=== PATIENT | male | born 1935 | race Hispanic/Latino ===

== ENCOUNTER 2017-04-07 06:08 | Inpatient (IN) | payer MEDICARE, OTHER ==
[2017-04-02 11:52] VITALS: BMI 25.0
--- NOTE | 2017-04-07 06:54 | CP.PCM.HP ---
History of Present Illness - History of Present Illness History of Present Illness: CC: scheduled L TKR HPI: This is a 81 y/o male with no chronic medical conditions who presents for a routine L TKR. Patient denies any CP, SOB. Denies any f/c/n/v/d. Denies cough , denies dysuria. Patient states that he has had b/l foot swelling for some months, but denies any exacerbating/attenuating factors. Denies any pain in feet /legs. ROS: 14 pt. ROS negative other than HPI MHx: No chronic medical conditions SHx: Colonoscopy in the past, L I Hernia surgery, R TKR Allergies: celecoxib Medications: As per med rec Family Hx: No relevant findings Social Hx: Lives wit family, no tobacco, occasional EtOH Surrogate: Daughter, info in chart Present on Admission - Present on Admission Any Indicators Present on Admission: No Past Patient History - Past Medical History & Family History Past Medical History?: Yes - Past Social History Smoking Status: Never Smoked - CARDIAC Hx Cardiac Disorders: No - PULMONARY Hx Respiratory Disorders: No - NEUROLOGICAL Hx Neurological Disorder: Yes Other/Comment: [place] - HEENT Hx HEENT Problems: Yes Hx Cataracts: Yes - RENAL Hx Chronic Kidney Disease: No - ENDOCRINE/METABOLIC Hx Endocrine Disorders: No - HEMATOLOGICAL/ONCOLOGICAL Hx Blood Disorders: No - INTEGUMENTARY Hx Dermatological Problems: No - MUSCULOSKELETAL/RHEUMATOLOGICAL Hx Musculoskeletal Disorders: Yes Hx Arthritis: Yes Hx Osteoarthritis: Yes - GASTROINTESTINAL Hx Gastrointestinal Disorders: Yes - GENITOURINARY/GYNECOLOGICAL Hx Genitourinary Disorders: No - PSYCHIATRIC Hx Psychophysiologic Disorder: No - SURGICAL HISTORY Hx Surgeries: Yes Hx Cataract Extraction: Yes Hx Herniorrhaphy: Yes (INGUINAL HERNIA) Hx Joint Replacement: Yes (TOTAL RIGHT KNEE REPLACEMENT) Hx Tonsillectomy: (O.U) Other/Comment: SEPTOPLASTY - ANESTHESIA Hx Anesthesia: Yes Hx Anesthesia Reactions: No Hx Malignant Hyperthermia: No Has any member of the family had a problem w/ anesthesia?: No Meds Allergies/Adverse Reactions: Allergies Allergy/AdvReac Type Severity Reaction Status Date / Time celecoxib [From Celebrex] Allergy ITCHING Verified 04/07/17 06:23 Physical Exam - Constitutional Appears: No Acute Distress - Head Exam Head Exam: ATRAUMATIC, NORMOCEPHALIC - Eye Exam Eye Exam: EOMI, PERRL - ENT Exam ENT Exam: Mucous Membranes Moist - Neck Exam Neck exam: Positive for: Full Rom - Respiratory Exam Respiratory Exam: Clear to Auscultation Bilateral, NORMAL BREATHING PATTERN - Cardiovascular Exam Cardiovascular Exam: REGULAR RHYTHM, +S1, +S2 - GI/Abdominal Exam GI & Abdominal Exam: Normal Bowel Sounds, Soft - Extremities Exam Extremities exam: Positive for: full ROM, pedal edema - Neurological Exam Neurological exam: Alert, CN II-XII Intact, Oriented x3 - Psychiatric Exam Psychiatric exam: Normal Affect, Normal Mood - Skin Skin Exam: Dry, Warm Assessment & Plan (1) Aftercare following left knee joint replacement surgery Assessment and Plan: 81 y/o with no chronic medical problems admitted for scheduled LKR. -routine post-op care -Pain mgmt -DVT PPx when cleared by orthopedics Status: Acute (2) DVT prophylaxis Status: Acute
[2017-04-07] MEDS ORDERED: ceFAZolin IV 1 gm in Dextrose 2 GM/100 ML BAG IVPB ONE (07:10)
[2017-04-07] MEDS ORDERED: Absorbable Gelatin Sponge Size 100 ONE (07:11)
[2017-04-07] MEDS ORDERED: Thrombin Topical 5,000 IU Spray Kit ONE (07:11)
[2017-04-07] MEDS ORDERED: SENSORCAINE 0.5% W/EPINEPHRINE 50ML MDV IJ ONE (07:16)
[2017-04-07] MEDS ORDERED: Propofol 10 mg/ml Inj (20 ML) ONE ×2 (07:18→10:04)
[2017-04-07] MEDS ORDERED: Rocuronium 10 mg/ml (5 ml) ONE ×2 (07:18→08:48)
[2017-04-07] MEDS ORDERED: Succinylcholine 200 mg/10 ml Inj IV ONE (07:18)
[2017-04-07] MEDS ORDERED: Etomidate 20 mg/10ml Inj IV ONE (07:18)
[2017-04-07] MEDS ORDERED: Lactated Ringer's 1,000 ML IV ONE (07:20)
[2017-04-07] MEDS ORDERED: Phenylephrine 10 mg/ml Inj ONE ×2 (07:25→08:59)
[2017-04-07] MEDS ORDERED: Sodium Chloride 0.9% 1,000 ML IV ONE (07:50)
[2017-04-07] MEDS ORDERED: Calcium Chloride 1000 mg/10 ml Syringe IV ONE (08:56)
[2017-04-07 09:46] LABS: FLUID TYPE SYNOVIAL FLUID
[2017-04-07] MEDS ORDERED: Bacitracin Ointment 30 GM TUBE ONE (09:49)
[2017-04-07] MEDS ORDERED: ePHEDrine 50 mg/ml Inj ONE (09:57)
--- NOTE | 2017-04-07 10:00 | PCM.SURG1 ---
Surgeon's Initial Post Op Note - Surgeon's Notes Surgeon: Seth Ship Washer: TOMI Sargent Type of Anesthesia: General Endo, Block Regional Anesthesia Administered By: DR Anne Marie Meng Pre-Operative Diagnosis: Tricompartmenal oseoarthritis (severe). tricompartmental synovitis Operative Findings: as above. posterior cap[sular contracture. lateral patella contracture Post-Operative Diagnosis: as above Operation Performed: TKR -L. posterior capsular release. lateral patella release. tricompartmental synovectomy. computer navigation Specimen/Specimens Removed: synovium/cartilage/bone Estimated Blood Loss: EBL {In ML}: 55 Blood Products Given: N/A, PRBC Drains Used: No Drains Date of Surgery/Procedure: 04/07/17 Time of Surgery/Procedure: 08:50 (time in room/anesthesia induction time- 7:50)
[2017-04-07] MEDS ORDERED: Desflurane Inhalation Anesthetic Liq (240 ml) ONE (10:02)
[2017-04-07] MEDS ORDERED: Neostigmine Methylsulfate 3mg/3ml Syringe IV ONE (10:17)
[2017-04-07] MEDS ORDERED: Neostigmine Methylsulfate 2 MG/2 ML ML IV ONE (10:17)
[2017-04-07] MEDS ORDERED: HYDROmorphone 0.5 mg/0.5 ml ISec IVP PRN (10:54)
[2017-04-07] MEDS ORDERED: Naloxone 0.4 mg/ml Inj (Adult) IVP PRN (10:54)
[2017-04-07] MEDS ORDERED: Oxycodone/Acetaminophen 5/325 mg Tab PO PRN (11:38)
--- NOTE | 2017-04-07 12:48 | RAD ---
PROCEDURE: Left Knee Radiographs. HISTORY: Pain. COMPARISON: None. FINDINGS: BONES: Patient seen to be status post left total knee replacement with distal femoral proximal tibial components in good apparent position. No interval definite fracture subluxation or dislocation. Postop soft tissue changes seen anteriorly greater than posteriorly with skin martir noted anteriorly. JOINTS: As above JOINT EFFUSION: As above OTHER FINDINGS: None. IMPRESSION: Status post left total knee replacement as discussed above.
[2017-04-07] MEDS: Sodium Chloride 0.9% 1,000 ML IV SCH (16:05)
[2017-04-07] MEDS: Artificial Tears Opht Soln OU PRN (16:15)
[2017-04-07] MEDS: ceFAZolin IV 2 gm in Dextrose 2 GM/50 ML BAG IVPB SCH ×2 (16:29→18:13)
--- NOTE | 2017-04-07 18:13 | OP ---
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 OPERATIVE FINDINGS: As above. OPERATION PERFORMED: 1. Left total knee replacement arthroplasty. 2. Posterior capsular release. 3. Lateral patellar retinacular release. 4. Anterior and posterior synovectomy. 5. Computer navigation. SURGEON: Stevan Ann MD MOLD CAPPER: Tammi Sandoval, certified registered nursing. SECOND ASSEMBLER SMALL PRODUCTS: Omari Guillory. SPECIMENS REMOVED: Synovium, cartilage. Stat Gram stain revealed no white cells per high-power field, no bacteria. ESTIMATED BLOOD LOSS: Approximately 55 mL. BLOOD PRODUCTS GIVEN: A 2 units of packed cells were given. DRAINS: None. TIME IN THE ROOM: 07:50. INCISION TIME: 08:50. OPERATIVE INDICATION: Afshin Long is a 81-year-old gentleman well known to my practice, who presents with severe pain and restricted range of motion of the right knee. The patient is status post successful complex revision right knee replacement. The patient now presents with pain and restricted range of motion of the left knee. The left knee is the involved knee and the left knee is operative on today. Pros, cons, risks and benefits of surgical approach were discussed, possibility of mechanical failure, infection, thromboembolic disease, secondary or tertiary surgery discussed. The patient can understand the discomfort. OPERATIVE PROCEDURE: After having obtained informed consent, after having identified the side, site, and procedure and a critical pause/time-out, after the satisfactory induction of the anesthetic, the patient identified as Afshin Long in the supine position with all bony prominences well padded. The left lower extremity was prepped and free draped in the usual fashion for lower extremity surgery. The tourniquet had been applied, but was not yet inflated. After exsanguinating the limb using a 6-inch Esmarch bandage, the tourniquet, which had been applied was inflated to 350 mmHg. A straight midline approach was made to the knee, 6 inches in extent. The skin incision was carried down through the skin and subcutaneous tissue. Medial arthrotomy was accomplished. The patella was everted. The knee was flexed. The tibia was dislocated anteriorly. Medial and lateral meniscectomies were accomplished. Anterior and posterior cruciate ligaments were excised. Dissection was carried around posterior medially. There was found to be a marked synovitis. Anterior and posterior synovectomy was accomplished both to improve visualization and to ablate the inflammatory tissue. This having been accomplished, the initial osteotomy was accomplished on the tibial side. Computer navigation commences at this point in time. The KneeAlign was placed on the anterior aspect of the femur. The sensor was placed as was the accelerometer. The offset was set to the posterior insertion of the anterior cruciate ligament. The offset was set to 8.5. This was set on the device. The medial malleolus was registered, lateral malleolus was registered, varus-valgus was set to 0 degrees, posterior slope to 3.5. The initial osteotomy was accomplished on the tibial side. The tibia was prepared with a #5 tibial component, guidance to rotation on the lateral aspect of the tibial condyle, mid malleolar axis, medial third of the tibial tuberosity. The tibia had been cut at 10 mm below the more prominent side. This having been accomplished, the proximal tibia was prepared and punched. Attention was turned to the femur. Notch osteophytes, border osteophytes were debrided. The navigation pin was placed just superior to the intercondylar notch. This having been accomplished, the distal cutting guide was placed, it was pinned. The accelerometer was placed as was the sensor. The hip center was found, the varus-valgus was set to 0 degrees and flexion to approximately 0.5 degrees. This having been accomplished, the 4-in-1 block was placed across the epicondylar axis. Anterior and posterior osteotomies were accomplished, chamfer cuts were accomplished as well. The trial femoral component was placed and the lugs were reamed. Attention at this point in time was turned to the posterior capsule. The posterior capsule was released. An extensive synovectomy, anterior and posterior was accomplished and lateral patellar retinacular release accomplished as well. Attention was turned to the patella. Freehand patella osteotomy was accomplished for #3 patellar component, #3 is reamed. Trialing was accomplished with a 17 mm polyethylene. Flexion and extension balance was excellent, patellar balance was excellent. The tibia, femur and patella were prepared. The #5 cemented femoral component was applied, #4 cemented tibial tray, 17 mm polyethylene, 3 mm, #3 of patella. This having been accomplished, closure was in layers. Flexion and extension gap was excellent, patellar balance was excellent. Lateral patellar retinacular release having been accomplished. Closures was in layers, #1 Vicryl followed by 0-Vicryl, 2-0 Vicryl and martir for skin. The tourniquet had been deflated and this having been accomplished, Josh Carrington compression dressing and knee immobilizers applied. No Hemovac was employed. Postoperative x-rays show acceptable position of the construct. Stevan Ann MD
[2017-04-07 20:11] LABS: RBC URINE 14 /hpf (0-3); URINE BILIRUBIN NEGATIVE (NEGATIVE); URINE BLOOD LARGE (NEGATIVE); URINE COLOR YELLOW (YELLOW); URINE GLUCOSE (UA) NEG (Normal); URINE KETONE NEGATIVE (NEGATIVE); URINE LEUKOCYTE ESTERASE NEG Leu/uL (Negative); URINE PROTEIN NEGATIVE (NEGATIVE); URINE UROBILINOGEN 0.2-1.0 mg/dL (0.2-1.0); WBC URINE < 1 /hpf (0-5)
[2017-04-08] MEDS: ceFAZolin IV 2 gm in Dextrose 2 GM/50 ML BAG IVPB SCH (00:16)
[2017-04-08] MEDS: Sodium Chloride 0.9% 1,000 ML IV SCH (00:30)
[2017-04-08 06:22] LABS: BLOOD UREA NITROGEN 24 mg/dl (9-20); CALCIUM 7.9 mg/dL (8.4-10.2); CARBON DIOXIDE 27 mmol/L (22-30); CHLORIDE 103 mmol/L (98-107); GFR AFRICAN-AMERICAN > 60; GLUCOSE,RANDOM 143 mg/dL (75-110); POTASSIUM 3.9 MMOL/L (3.6-5.0); SODIUM 138 mmol/l (132-148)
[2017-04-08 06:23] LABS: HEMATOCRIT 31.3 % (35.0-51.0); MEAN CORPUSCULAR HEMOGLOBIN 27.9 pg (27.0-31.0); MEAN CORPUSCULAR HGB CONC 32.9 g/dL (33.0-37.0); RED CELL DISTRIBUTION WIDTH 17.1 % (11.5-14.5); WHITE BLOOD COUNT 10.8 K/uL (4.8-10.8)
[2017-04-08] MEDS ORDERED: Sodium Chloride 0.9% 1,000 ML IV SCH (12:00)
--- NOTE | 2017-04-08 16:31 | CP.PCM.PN ---
Subjective - Date & Time of Evaluation Date of Evaluation: 04/08/17 Time of Evaluation: 12:30 - Subjective Subjective: Pt seen and examined He was sitted on a chair and was with the Physical therapy team No fevr Pain controlled Denies CP no SOB no abd pain Had episode of urinary retention last night, Moody cath inserted Objective - Vital Signs/Intake and Output Vital Signs (last 24 hours): Temp Pulse Resp BP Pulse Ox 98.6 F 91 H 20 128/77 97 04/08/17 16:15 04/08/17 16:15 04/08/17 16:15 04/08/17 16:15 04/08/17 16:15 Intake and Output: 04/08/17 04/08/17 06:59 18:59 Output Total 500 Balance -500 - Medications Medications: Current Medications Artificial Tears (Artificial Tears) 2 drop OU Q6 PRN PRN Reason: Dry eyes Last Admin: 04/07/17 16:15 Dose: 2 drop Aspirin (Ecotrin) 81 mg PO BID [facility] Last Admin: 04/08/17 09:23 Dose: 81 mg Docusate Sodium (Colace) 100 mg PO BID [facility] Last Admin: 04/08/17 09:23 Dose: 100 mg Ferrous Sulfate (Feosol) 325 mg PO BID [facility] Last Admin: 04/08/17 09:26 Dose: 325 mg Sodium Chloride (Sodium Chloride 0.9%) 1,000 mls @ 100 mls/hr IV .Q10H [facility] Stop: 04/08/17 21:59 Last Admin: 04/08/17 12:17 Dose: 100 mls/hr Morphine Sulfate (Morphine) 2 mg IVP Q4 PRN PRN Reason: Pain, severe (8-10) Last Admin: 04/08/17 11:10 Dose: 2 mg Naloxone HCl (Narcan) 0.1 mg IVP Q2M PRN PRN Reason: Agitation Oxycodone/Acetaminophen (Percocet 5/325 Mg Tab) 1 tab PO Q4 PRN PRN Reason: Pain, moderate (4-7) Stop: 04/10/17 11:39 Tamsulosin HCl (Flomax) 0.4 mg PO HS [facility] Last Admin: 04/07/17 21:31 Dose: 0.4 mg - Labs Labs: 04/08/17 05:55 04/08/17 05:55 - Constitutional Appears: No Acute Distress - Head Exam Head Exam: NORMAL INSPECTION, NORMOCEPHALIC - Eye Exam Pupil Exam: NORMAL ACCOMODATION Additional comments: conjunctival erythema - ENT Exam ENT Exam: Mucous Membranes Moist, Normal External Ear Exam - Neck Exam Neck Exam: Full ROM. absent: Meningismus - Respiratory Exam Respiratory Exam: NORMAL BREATHING PATTERN. absent: Rales, Wheezes, Respiratory Distress - Cardiovascular Exam Cardiovascular Exam: REGULAR RHYTHM, +S1, +S2 - GI/Abdominal Exam GI & Abdominal Exam: Soft, Normal Bowel Sounds. absent: Tenderness - Extremities Exam Extremities Exam: Normal Capillary Refill, Pedal Edema. absent: Calf Tenderness Additional comments: LEFT KNEE WITH DRESSING - Back Exam Back Exam: Full ROM. absent: CVA tenderness (L), CVA tenderness (R) - Neurological Exam Neurological Exam: Alert, Awake, CN II-XII Intact, Oriented x3 Neuro motor strength exam: Left Upper Extremity: 5, Right Upper Extremity: 5, Left Lower Extremity: 5, Right Lower Extremity: 5 - Psychiatric Exam Psychiatric exam: Normal Affect, Normal Mood - Skin Skin Exam: Dry, Normal Color, Warm Assessment and Plan (1) Aftercare following left knee joint replacement surgery Status: Acute (2) Postoperative urinary retention Status: Acute (3) Prostatic enlargement Status: Chronic (4) Dry eyes, bilateral Status: Chronic (5) Anemia Status: Chronic (6) DVT prophylaxis Status: Acute - Assessment and Plan (Free Text) Assessment: 81 y/o gent with hx of Primary OA, Prostate Enlargement , Anemia, admitted for scheduled Left Knee TKR . Pt is post op Day 1 , doing weel, pain controlled. (1) Primary OA of the left knee s/p left knee joint replacement surgery Status: Acute Ortho: Dr Ann Pain mgt PT/OT consulted SCD DVT Proph Incentive Spirometry Pt Received Ancef x 3 doses (2) Postoperative urinary retention likely due to Anethesi, opiates and prostate enalrgement Status: Acute Moody catheter placed Bladder training started on Flomax Urology - Dr Lara consulted (3) Prostatic enlargement Status: Chronic cont Flomax (4) Dry eyes, bilateral Status: Chronic cont Artificial eye drops (5) Anemia Status: Chronic Pt was anemic prior to surgery- baseline Hgb 10 transfused PRBC intraop start Ferrous sulfate (6) DVT prophylaxis Status: Acute ASA 81 mg bid [facility]
[2017-04-09] MEDS ORDERED: Sodium Chloride 0.9% 1,000 ML IV SCH (02:30)
[2017-04-09 08:18] VITALS: BP 116/70; PULSE 79; RESP 18; TEMP 99.1; O2SAT 96
--- NOTE | 2017-04-09 10:33 | CP.PCM.PN ---
Subjective - Date & Time of Evaluation Date of Evaluation: 04/09/17 Time of Evaluation: 10:33 - Subjective Subjective: Patient states pain in knee is well controlled if he is not moving. Denies CP/ SOB/dizziness. Objective - Vital Signs/Intake and Output Vital Signs (last 24 hours): Temp Pulse Resp BP Pulse Ox 99.1 F 79 18 116/70 96 04/09/17 08:17 04/09/17 08:17 04/09/17 08:17 04/09/17 08:17 04/09/17 08:17 Intake and Output: 04/09/17 04/09/17 06:59 18:59 Intake Total 1440 Output Total 400 Balance 1040 - Medications Medications: Current Medications Artificial Tears (Artificial Tears) 2 drop OU Q6 PRN PRN Reason: Dry eyes Last Admin: 04/07/17 16:15 Dose: 2 drop Aspirin (Ecotrin) 81 mg PO BID [facility] Last Admin: 04/09/17 09:10 Dose: 81 mg Docusate Sodium (Colace) 100 mg PO BID [facility] Last Admin: 04/09/17 09:09 Dose: 100 mg Ferrous Sulfate (Feosol) 325 mg PO BID [facility] Last Admin: 04/09/17 09:10 Dose: 325 mg Sodium Chloride (Sodium Chloride 0.9%) 1,000 mls @ 100 mls/hr IV .Q10H [facility] Stop: 04/09/17 12:29 Last Admin: 04/09/17 02:30 Dose: 100 mls/hr Morphine Sulfate (Morphine) 2 mg IVP Q4 PRN PRN Reason: Pain, severe (8-10) Last Admin: 04/09/17 06:35 Dose: 2 mg Naloxone HCl (Narcan) 0.1 mg IVP Q2M PRN PRN Reason: Agitation Oxycodone/Acetaminophen (Percocet 5/325 Mg Tab) 1 tab PO Q4 PRN PRN Reason: Pain, moderate (4-7) Stop: 04/10/17 11:39 Tamsulosin HCl (Flomax) 0.4 mg PO HS [facility] Last Admin: 04/08/17 22:03 Dose: 0.4 mg - Labs Labs: 04/08/17 05:55 04/08/17 05:55 - Extremities Exam Additional comments: Left knee: dressing changed, incision intact, small amt sang drainage, mild ecchymosis, noted foot swellingn (present on admission) calves soft NT ne ghmoans, +DP pulses, sensation intact, +ROM ankle/toes, encouraged Assessment and Plan (1) Primary osteoarthritis of left knee Assessment & Plan: POD#2 s/p left TKR -ortho stablel PT/OT/VTE proph aspirin per Dr. Ann bladder training, d/c maier rohith d/c plannng to rehba cbc today d/w Dr. Ann, agrees with above Status: Acute
[2017-04-09 12:03] LABS: MEAN CELL VOLUME 85.1 fl (80.0-94.0); MEAN CORPUSCULAR HEMOGLOBIN 27.8 pg (27.0-31.0); MEAN CORPUSCULAR HGB CONC 32.6 g/dL (33.0-37.0); RED CELL DISTRIBUTION WIDTH 17.1 % (11.5-14.5)
[2017-04-09] MEDS ORDERED: Chlorhexidine Gluconate 1 APPL/PKT TP ONE (12:03)
[2017-04-09] MEDS: Artificial Tears Opht Soln OU PRN (12:08)
--- NOTE | 2017-04-09 12:13 | CP.PCM.PN ---
Subjective - Date & Time of Evaluation Date of Evaluation: 04/09/17 Time of Evaluation: 12:09 - Subjective Subjective: urology called to se pt because of post op acute urinary retention. Pt has a history of bph but qas according to him voiding well until after knee surgey. He was started on flomax on 04/07 Urine in maier is clear. To give the flomax a chance to start working I suggested to continue maier till am then d/ c maier and give a vioding terial Objective - Vital Signs/Intake and Output Vital Signs (last 24 hours): Temp Pulse Resp BP Pulse Ox 99.1 F 79 18 116/70 96 04/09/17 08:17 04/09/17 08:17 04/09/17 08:17 04/09/17 08:17 04/09/17 08:17 Intake and Output: 04/09/17 04/09/17 06:59 18:59 Intake Total 1440 Output Total 400 Balance 1040 - Medications Medications: Current Medications Artificial Tears (Artificial Tears) 2 drop OU Q6 PRN PRN Reason: Dry eyes Last Admin: 04/07/17 16:15 Dose: 2 drop Aspirin (Ecotrin) 81 mg PO BID [facility] Last Admin: 04/09/17 09:10 Dose: 81 mg Docusate Sodium (Colace) 100 mg PO BID [facility] Last Admin: 04/09/17 09:09 Dose: 100 mg Ferrous Sulfate (Feosol) 325 mg PO BID [facility] Last Admin: 04/09/17 09:10 Dose: 325 mg Sodium Chloride (Sodium Chloride 0.9%) 1,000 mls @ 100 mls/hr IV .Q10H [facility] Stop: 04/09/17 12:29 Last Admin: 04/09/17 02:30 Dose: 100 mls/hr Morphine Sulfate (Morphine) 2 mg IVP Q4 PRN PRN Reason: Pain, severe (8-10) Last Admin: 04/09/17 06:35 Dose: 2 mg Naloxone HCl (Narcan) 0.1 mg IVP Q2M PRN PRN Reason: Agitation Oxycodone/Acetaminophen (Percocet 5/325 Mg Tab) 1 tab PO Q4 PRN PRN Reason: Pain, moderate (4-7) Stop: 04/10/17 11:39 Tamsulosin HCl (Flomax) 0.4 mg PO HS [facility] Last Admin: 04/08/17 22:03 Dose: 0.4 mg Tramadol HCl (Ultram) 50 mg PO Q6 PRN PRN Reason: Pain, moderate (4-7) Tramadol HCl (Ultram) 100 mg PO Q6 PRN PRN Reason: Pain, severe (8-10) - Labs Labs: 04/09/17 11:55 04/08/17 05:55
--- NOTE | 2017-04-09 13:41 | CP.PCM.DIS ---
Provider - Provider Date of Admission: 04/07/17 11:32 Attending physician: Ludin Browne MD Primary care physician: Stevan Ann III, MD Consults: ortho consult PT consult urology consult Time Spent in preparation of Discharge (in minutes): 20 Hospital Course - Lab Results Lab Results: Micro Results 04/07/17 10:17 Knee - Left Gram Stain - Final 04/07/17 10:17 Knee - Left Wound Culture - Preliminary No growth. 04/07/17 10:17 Knee - Left Gram Stain - Final 04/07/17 10:17 Knee - Left Wound Culture - Preliminary No growth. 04/07/17 10:17 Knee - Left Gram Stain - Final 04/07/17 10:17 Knee - Left Wound Culture - Preliminary No growth. 04/07/17 10:17 Knee - Left Gram Stain - Final 04/07/17 10:17 Knee - Left Wound Culture - Preliminary No growth. 04/07/17 10:17 Knee - Left Gram Stain - Final 04/07/17 10:17 Knee - Left Wound Culture - Preliminary No growth. 04/07/17 10:17 Knee - Left Gram Stain - Final 04/07/17 10:17 Knee - Left Wound Culture - Preliminary No growth. 04/07/17 09:43 Synovial Fluid Gram Stain - Final 04/07/17 09:43 Synovial Fluid Body Fluid Culture - Preliminary NO GROWTH AFTER 2 DAYS 04/07/17 10:17 Knee - Left Gram Stain - Final 04/07/17 10:17 Knee - Left Wound Culture - Preliminary No growth. 04/07/17 10:17 Knee - Left Gram Stain - Final 04/07/17 10:17 Knee - Left Wound Culture - Preliminary No growth. 04/07/17 09:43 Other: Please Indicate Anaerobic Culture - Final NO ANAEROBES ISOLATED. 04/07/17 09:43 Other: Please Indicate Mycobacterial Culture - Preliminary Most Recent Lab Values WBC 11.0 K/uL (4.8-10.8) H 04/09/17 11:55 RBC 3.40 Mil/uL (4.40-5.90) L 04/09/17 11:55 Hgb 9.4 g/dL (12.0-18.0) L 04/09/17 11:55 Hct 29.0 % (35.0-51.0) L 04/09/17 11:55 MCV 85.1 fl (80.0-94.0) 04/09/17 11:55 MCH 27.8 pg (27.0-31.0) 04/09/17 11:55 MCHC 32.6 g/dL (33.0-37.0) L 04/09/17 11:55 RDW 17.1 % (11.5-14.5) H 04/09/17 11:55 Plt Count 183 K/uL (130-400) 04/09/17 11:55 Sodium 138 mmol/l (132-148) 04/08/17 05:55 Potassium 3.9 MMOL/L (3.6-5.0) 04/08/17 05:55 Chloride 103 mmol/L (98-107) 04/08/17 05:55 Carbon Dioxide 27 mmol/L (22-30) 04/08/17 05:55 Anion Gap 12 (10-20) 04/08/17 05:55 BUN 24 mg/dl (9-20) H 04/08/17 05:55 Creatinine 0.8 mg/dl (0.8-1.5) 04/08/17 05:55 Est GFR ( Amer) > 60 04/08/17 05:55 Est GFR (Non-Af Amer) > 60 04/08/17 05:55 Random Glucose 143 mg/dL (75-110) H 04/08/17 05:55 Calcium 7.9 mg/dL (8.4-10.2) L 04/08/17 05:55 Urine Color Yellow (YELLOW) 04/07/17 19:44 Urine Clarity Clear (Clear) 04/07/17 19:44 Urine pH 6.0 (5.0-8.0) 04/07/17 19:44 Ur Specific [place] 1.011 (1.003-1.030) 04/07/17 19:44 Urine Protein Negative mg/dL (NEGATIVE) 04/07/17 19:44 Urine Glucose (UA) Neg mg/dL (Normal) 04/07/17 19:44 Urine Ketones Negative mg/dL (NEGATIVE) 04/07/17 19:44 Urine Blood Large (NEGATIVE) 04/07/17 19:44 Urine Nitrate Negative (NEGATIVE) 04/07/17 19:44 Urine Bilirubin Negative (NEGATIVE) 04/07/17 19:44 Urine Urobilinogen 0.2-1.0 mg/dL (0.2-1.0) 04/07/17 19:44 Ur Leukocyte Esterase Neg Eulalio/uL (Negative) 04/07/17 19:44 Urine RBC (Auto) 14 /hpf (0-3) H 04/07/17 19:44 Urine Microscopic WBC < 1 /hpf (0-5) 04/07/17 19:44 Fluid Type Synovial fluid 04/07/17 09:43 Synovial WBC 63.0 /mm3 (0.0-150.0) 04/07/17 09:43 Synovial RBC 1742.0 /mm3 (0.0-0.0) H 04/07/17 09:43 Synovial Neutrophils 9.0 % (0-0) H 04/07/17 09:43 Synovial Lymphocytes 14.0 % (0-0) H 04/07/17 09:43 Synov Monos/Macrophage 2 % (0-0) H 04/07/17 09:43 Synovial Fluid Comment Sl bloody 04/07/17 09:43 Blood Type O POSITIVE 04/07/17 06:35 Blood Type Confirm O POSITIVE 04/07/17 07:55 Antibody Screen Negative 04/07/17 06:35 Crossmatch See Detail 04/07/17 06:35 BBK History Checked No verified bt 04/07/17 06:35 - Hospital Course Hospital Course: 81 y/o gent with hx of Primary OA, Prostate Enlargement , Anemia, admitted for scheduled Left Knee TKR .Post op patient developed acute urinary retention and Ennis was inserted and started on Flomax PO. urology consulted and recommended keeping Ennis in for another 24 hours. Post patient doing well, pain is controlled. PT consult appreciated and recommended [facility]. Will discharge patient to [facility] close to home. advise to follow up with Dr. Ann in 1 week 1. Primary OA of the left knee s/p left knee joint replacement surgery Acute Orth consulted Dr Ann continue pain management with Ultram since patient is allergic to oxycodone PT/OT consult appreciated . will d/c to [facility] for continuation of PT continue CPM machine use as per ortho recommendations ASa 81 mg po BHID for DVt propohylaxis incentive spirometry use Received Ancef x 3 doses prophylactically 2. Postoperative urinary retention likely due to Anethesai, opiates and prostate enlargement Acute Ennis catheter placed started on Flomax Urology - Dr Lara consulted. recommended to keep Ennis in for another 24 hours and continue Flomax promote ambulation 3.Prostatic enlargement Chronic cont Flomax 4. Dry eyes, bilateral Chronic cont Artificial eye drops 5. Anemia Chronic Pt was anemic prior to surgery- baseline Hgb 10 transfused PRBC intraop started Ferrous sulfate 6. DVT prophylaxis Acute ASA 81 mg bid SCD Discharge Exam - Head Exam Head Exam: NORMAL INSPECTION, NORMOCEPHALIC - Eye Exam Eye Exam: EOMI, Normal appearance, PERRL Pupil Exam: NORMAL ACCOMODATION - ENT Exam ENT Exam: Mucous Membranes Moist, Normal Exam - Neck Exam Neck exam: Full Rom, Normal Inspection - Respiratory Exam Respiratory Exam: Clear to PA & Lateral, NORMAL BREATHING PATTERN. absent: Rales, Rhonchi, Wheezes, Respiratory Distress - Cardiovascular Exam Cardiovascular Exam: REGULAR RHYTHM, RRR, +S1, +S2. absent: JVD - GI/Abdominal Exam GI & Abdominal Exam: Normal Bowel Sounds, Soft. absent: Distended, Guarding, Rebound, Tenderness - Rectal Exam Rectal Exam: Deferred - Extremities Exam Extremities exam: normal inspection, pedal pulses present Additional comments: Left knee with raiza bandage and immobilizer in place - Back Exam Back exam: NORMAL INSPECTION - Neurological Exam Neurological exam: Alert, CN II-XII Intact, Oriented x3, Reflexes Normal - Psychiatric Exam Psychiatric exam: Normal Affect, Normal Mood - Skin Skin Exam: Dry, Pallor, Warm Discharge Plan - Discharge Medications Prescriptions: traMADol [Ultram] 50 mg PO TID PRN #30 tab PRN Reason: Pain, Severe (8-10) - Follow Up Plan Condition: GOOD Disposition: TRANSF TO SNF Patient education suggested?: Yes Instructions: Knee Replacement (DC), Knee Replacement (GEN) Additional Instructions: ENNIS CATHETER ON, REMOVED 04/10 AT 8AM. Referrals: Stevan Ann III, MD [Primary Care Provider] -
== END 2017-04-09 16:25 | DRG 470 ==
LOC: H.OPSURG 06:08 → H.MEDSURG1 11:32
PROVIDERS: ADMIT Internal Medicine; ATTEND Internal Medicine
PROC: 0SRD0J9 Replacement of Left Knee Joint with Synthetic Substitute, Cemented, Open Approach (ICD-10-PCS; principal; 2017-04-07 07:45)
PROC: 0SBD0ZZ Excision of Left Knee Joint, Open Approach (ICD-10-PCS; 2017-04-07 07:45)
PROC: 8E0YXBZ Computer Assisted Procedure of Lower Extremity (ICD-10-PCS; 2017-04-07 07:45)
DX: M17.12 Unilateral primary osteoarthritis, left knee (principal); D64.9 Anemia, unspecified; H04.123 Dry eye syndrome of bilateral lacrimal glands; M65.9 Synovitis and tenosynovitis, unspecified; Z96.651 Presence of right artificial knee joint; Z88.5 Allergy status to narcotic agent; Z88.6 Allergy status to analgesic agent; R33.8 Other retention of urine; N99.89 Other postprocedural complications and disorders of genitourinary system; Y83.8 Other surgical procedures as the cause of abnormal reaction of the patient, or of later complication, without mention of misadventure at the time of the procedure; N40.1 Benign prostatic hyperplasia with lower urinary tract symptoms; R33.0 Drug induced retention of urine; T41.205A Adverse effect of unspecified general anesthetics, initial encounter; T40.605A Adverse effect of unspecified narcotics, initial encounter

== ENCOUNTER 2017-05-29 06:29 | Inpatient (IN) | payer MEDICARE ==
[2017-05-23 14:57] VITALS: BMI 20.3
[2017-05-29 08:14] LABS: HEMOGLOBIN 11.4 g/dL (12.0-18.0); MEAN CELL VOLUME 88.7 fl (80.0-94.0); MEAN CORPUSCULAR HEMOGLOBIN 28.7 pg (27.0-31.0); MEAN CORPUSCULAR HGB CONC 32.3 g/dL (33.0-37.0); RBC 3.96 Mil/uL (4.40-5.90); RED CELL DISTRIBUTION WIDTH 17.3 % (11.5-14.5); WHITE BLOOD COUNT 8.7 K/uL (4.8-10.8)
--- NOTE | 2017-05-29 10:23 | CP.PCM.HP ---
History of Present Illness - History of Present Illness History of Present Illness: 82 yo male with history of Arthritis, BPH and DVT admitted for revision of left TKR. Patient had left TKR on 04/07/2017 after failing conservative management. He was discharged to rehab center and did well. Developed bronchitis in April after he was discharged from the rehab center and [facility] [place] Hospitalization was complicated with DVT of the left leg and a fall. He was unable to put pressure on his left side since then. Follow up with orthopedist advised revision of the left TKR. Present on Admission - Present on Admission Any Indicators Present on Admission: Yes History of DVT/PE: Yes History of Uncontrolled Diabetes: No Urinary Catheter: No Decubitus Ulcer Present: No Review of Systems - Review of Systems All systems: reviewed and no additional remarkable complaints except (aside from those mentioned above, 12 point system review were negative by me) Past Patient History - Tetanus Immunizations Tetanus Immunization: Unknown - Past Medical History & Family History Past Medical History?: Yes - Past Social History Smoking Status: Never Smoked Alcohol: None Drugs: Denies Home Situation {Lives}: With Family - CARDIAC Hx Cardiac Disorders: No - PULMONARY Hx Respiratory Disorders: No - NEUROLOGICAL Hx Neurological Disorder: Yes Other/Comment: [place] - HEENT Hx HEENT Problems: Yes Hx Cataracts: Yes - RENAL Hx Chronic Kidney Disease: No - ENDOCRINE/METABOLIC Hx Endocrine Disorders: No - HEMATOLOGICAL/ONCOLOGICAL Hx Blood Disorders: No - INTEGUMENTARY Hx Dermatological Problems: No - MUSCULOSKELETAL/RHEUMATOLOGICAL Hx Musculoskeletal Disorders: Yes Hx Arthritis: Yes Hx Osteoarthritis: Yes - GASTROINTESTINAL Hx Gastrointestinal Disorders: Yes - GENITOURINARY/GYNECOLOGICAL Hx Genitourinary Disorders: No - PSYCHIATRIC Hx Psychophysiologic Disorder: No - SURGICAL HISTORY Hx Surgeries: Yes Hx Cataract Extraction: Yes Hx Herniorrhaphy: Yes (INGUINAL HERNIA) Hx Joint Replacement: Yes (TKR of both knees) Hx Tonsillectomy: (O.U) Other/Comment: SEPTOPLASTY - ANESTHESIA Hx Anesthesia: Yes Hx Anesthesia Reactions: No Hx Malignant Hyperthermia: No Has any member of the family had a problem w/ anesthesia?: No Meds Allergies/Adverse Reactions: Allergies Allergy/AdvReac Type Severity Reaction Status Date / Time acetaminophen [From Percocet] Allergy ITCHING Verified 04/09/17 06:41 celecoxib [From Celebrex] Allergy ITCHING Verified 04/07/17 06:23 oxycodone [From Percocet] Allergy ITCHING Verified 04/09/17 06:41 Physical Exam - Constitutional Appears: No Acute Distress - Head Exam Head Exam: ATRAUMATIC - Eye Exam Eye Exam: absent: Scleral icterus - ENT Exam ENT Exam: Mucous Membranes Moist - Neck Exam Neck exam: Negative for: Meningismus - Respiratory Exam Respiratory Exam: absent: Rhonchi, Wheezes, Respiratory Distress - Cardiovascular Exam Cardiovascular Exam: REGULAR RHYTHM, +S1, +S2 - GI/Abdominal Exam GI & Abdominal Exam: Soft. absent: Tenderness - Rectal Exam Rectal Exam: Deferred - Extremities Exam Extremities exam: Negative for: full ROM (limited ROM of left knee) - Neurological Exam Neurological exam: Alert, Oriented x3 - Psychiatric Exam Psychiatric exam: Normal Affect - Skin Skin Exam: Dry, Intact Results - Vital Signs Recent Vital Signs: Last Vital Signs Temp 98.8 F 05/29/17 08:27 Pulse 85 05/29/17 08:31 Resp 20 05/29/17 08:27 BP 97/54 L 05/29/17 08:27 Pulse Ox 98 05/29/17 08:27 - Labs Result Diagrams: 05/29/17 07:40 Labs: Laboratory Results - last 24 hr 05/29/17 05/29/17 07:40 07:40 WBC 8.7 RBC 3.96 L Hgb 11.4 L D Hct 35.2 MCV 88.7 D MCH 28.7 MCHC 32.3 L RDW 17.3 H Plt Count 191 BBK History Checked Patient has bt Assessment & Plan - Assessment and Plan (Free Text) Assessment: 82 yo male with history of Arthritis, BPH and DVT admitted for revision of left TKR. Patient had left TKR on 04/07/2017 after failing conservative management. He was discharged to rehab center and did well. Developed bronchitis in April after he was discharged from the rehab center and was [facility] [place] Hospitalization was complicated with DVT of the left leg and a fall. He was unable to put pressure on his left side since then. Follow up with orthopedist advised revision of the left TKR. 1. Dislocated Left TKR for revision hold Eliquis 2. DVT Eliquis put on hold 3. BPH resume Tamsulosin after surgery
[2017-05-29] MEDS ORDERED: Bupivacaine 0.5% Inj(30mL) ONE (13:18)
[2017-05-29] MEDS ORDERED: Bacitracin Ointment 30 GM TUBE ONE ×2 (13:19→16:47)
[2017-05-29] MEDS ORDERED: Thrombin Topical 5,000 Int Units Spray Kit ONE (13:19)
[2017-05-29] MEDS ORDERED: Absorbable Gelatin Sponge Size 100 ONE (13:19)
[2017-05-29] MEDS ORDERED: Propofol 10 mg/ml Inj (20 ML) ONE ×2 (13:59→17:19)
[2017-05-29] MEDS ORDERED: Midazolam 2 MG/2 ML VIAL ONE (13:59)
[2017-05-29] MEDS ORDERED: Rocuronium 10 mg/ml (5 ml) ONE ×2 (13:59→15:45)
[2017-05-29] MEDS ORDERED: ePHEDrine 50 mg/ml Inj ONE (14:54)
[2017-05-29] MEDS ORDERED: Dexamethasone 4 mg/1 ml ONE (15:09)
[2017-05-29 16:35] LABS: FLUID TYPE SYNOVIAL FLUID
[2017-05-29] MEDS ORDERED: Lactated Ringer's 1,000 ML IV ONE (16:40)
[2017-05-29 16:42] LABS: SF GROSS APPEARANCE CLOUDY (CLEAR)
[2017-05-29 16:44] LABS: SYNOVIAL FLUID COMMENT SL BLOODY
[2017-05-29] MEDS ORDERED: HYDROmorphone 0.5 mg/0.5 ml ISec IVP PRN (17:17)
[2017-05-29 17:25] LABS: SYNOVIAL FLUID MONO/MACROPHAGE 10 % (0-0)
--- NOTE | 2017-05-29 17:29 | PCM.ANESB3 ---
Femoral Nerve Block - Femoral Nerve Block Date of Procedure: 05/29/17 Anesthesiologist: keshawn Pre-Procedure Diagnosis: quad repair Post-Procedure Diagnosis: same Procedure Performed: Femoral Nerve Block Left - Procedure Femoral Nerve Block: The procedure was explained to the patient that it is for the post-operative pain management. Consent was obtained after a thorough discussion with the patient regarding the benefits and possible complications of local anesthetic block of the femoral nerve at the inguinal crease area. The patient was brought to the operating room and standard monitors were applied. Time-out was held with the circulating nurse to confirm the correct surgery and the appropriate block. After applying oxygen , patient was placed in supine position with fully extended lower extremities and the ____left____ groin exposed. The femoral artery was then carefully palpated. The ultrasound transducer was then applied to this area in the transverse plane and the femoral nerve was visualized lateral to the femoral artery and underneath the fascia iliaca. After thorough identification, the inguinal crease area was prepped with Betadine solution three times and 1 % Lidocaine was injected subcutaneously for topical anesthesia. At this point, a #22 gauge Stimuplex 2-inch needle was inserted immediately lateral to the femoral artery pulse at the inguinal crease and advanced perpendicularly. The needle was inserted to the ultrasound transducer in-plane towards the femoral nerve in a [id number] direction. Needle advancement was performed carefully under direct ultrasound visualization. After negative aspiration, 30 cc of __.75___% bupivicaine was. Under ultrasound guidance the local anesthetics were observed spreading below fascia iliaca and around the femoral nerve. The needle was removed intact and sterile dressing was applied. The patient tolerated the femoral nerve block well with stable vital signs and was prepared for subsequent surgery.
[2017-05-29] MEDS ORDERED: Artificial Tears Opht Soln OU PRN (18:18)
--- NOTE | 2017-05-29 18:42 | PCM.SURG1 ---
Surgeon's Initial Post Op Note - Surgeon's Notes Surgeon: Seth [employer] Seaming Machine Operator: TOMI Sargent Type of Anesthesia: General Endo, Block Regional Anesthesia Administered By: DR Mcmullen Pre-Operative Diagnosis: Quadriceps tendon Rupture. s/p- L TKR. Operative Findings: as above Post-Operative Diagnosis: as above Operation Performed: primary repair L Quad tendon. excision skin/subcutaneous tissue /muscle. L Knee arthrotomy/ partial synovectomy. re[air medial lateral patella retinaculum. applx knee immobilizer Specimen/Specimens Removed: scar/tendon/synovium Estimated Blood Loss: EBL {In ML}: 25 Blood Products Given: N/A Drains Used: No Drains Post-Op Condition: Good Date of Surgery/Procedure: 05/29/17 Time of Surgery/Procedure: 15:50 (time in /anaetsheisa induciton time 1430)
[2017-05-29] MEDS: Lactated Ringer's 1,000 ML IV SCH (20:30)
[2017-05-29] MEDS: ceFAZolin 1 GM in Sodium Chloride 0.9% 100 ML IVPB SCH (22:05)
[2017-05-30] MEDS: ceFAZolin 1 GM in Sodium Chloride 0.9% 100 ML IVPB SCH (06:00)
[2017-05-30 06:32] LABS: HEMOGLOBIN 9.8 g/dL (12.0-18.0); LYMPH # 1.1 K/uL (1.0-4.3); MEAN CORPUSCULAR HEMOGLOBIN 29.2 pg (27.0-31.0); MEAN CORPUSCULAR HGB CONC 33.2 g/dL (33.0-37.0); MEAN PLATELET VOLUME 7.7 fl (7.2-11.7); MONO # 0.6 K/uL (0.0-0.8); MONO % 7.4 % (0.0-10.0); NEUT # 6.6 K/uL (1.8-7.0); NEUT % 79.6 % (50.0-75.0); RBC 3.35 Mil/uL (4.40-5.90); RED CELL DISTRIBUTION WIDTH 17.3 % (11.5-14.5); WHITE BLOOD COUNT 8.3 K/uL (4.8-10.8)
[2017-05-30 06:40] LABS: BLOOD UREA NITROGEN 21 mg/dl (9-20); CALCIUM 8.4 mg/dL (8.4-10.2); GFR AFRICAN-AMERICAN > 60; GFR NON-AFRICAN AMERICAN > 60
[2017-05-30] MEDS ORDERED: Influenza Vaccine 18yr & older 0.5 ML/45 MCG SYR IM ONE (09:00)
[2017-05-30] MEDS ORDERED: Pneumococcal 23-Valent Vaccine IM ONE (09:00)
--- NOTE | 2017-05-30 10:07 | OP ---
PROCEDURE DATE: 05/29/2017 LOCATION: [facility]. PREOPERATIVE DIAGNOSES: Quadriceps tendon rupture, status post successful total knee replacement and tear, medial and lateral retinaculum. POSTOPERATIVE DIAGNOSES: Complete rupture of the quadriceps tendon with a cuff of tissue left to the patella and tear to the medial and lateral retinaculum. OPERATIVE FINDINGS: As above. There is a synovial fluid, which was removed and sent for culture of the results of the culture is suspect and cell count. PROCEDURES PERFORMED: 1. Primary repair of quad tendon. 2. Repair of medial and lateral patellar retinaculum. 3. Excision of skin and subcutaneous tissue and muscle. 4. Application of Josh Carrington compression dressing and knee immobilizer. SURGEON: Stevan Ann MD [place] TIER: Tammi Sandoval, certified registered nursing acquisitions assistant. ANESTHESIA: General endotracheal anesthesia. COMPLICATIONS: No complications. DRAINS: No drains. OPERATIVE INDICATIONS: Afshin Long is a gentleman who had a successful total knee replacement arthroplasty sustained a fall downstairs and ruptured his quadriceps tendon. The patient is admitted after medical stabilization for primary repair. Pros, cons, risks and benefits were discussed. Possibility of stiffness, mechanical failure, infection, thromboembolic disease, secondary or tertiary surgery was discussed, the patient understands the discomfort. OPERATIVE PROCEDURE: After having obtained informed consent, after having identified side, site and procedure and critical pause/time-out after the satisfactory induction of the anesthetic, the patient identified as Afshin Long in the supine position with all bony prominences well padded. The left lower extremity was prepped and free draped in the usual fashion for extremity surgery. The tourniquet had been applied, but it was not yet inflated. After exsanguinating the limb using a 6-inch Esmarch bandage, the tourniquet, which had been applied, was inflated to 350 mmHg. Initially, the incision was extended two fingerbreadths distally, three fingerbreadths proximally. An ellipse of skin was removed. The ellipse of skin is carried down to the skin and subcutaneous tissue and a portion of muscle was excised. There was found to be an egress of fluid as soon as the joint was entered as complete rupture of the quadriceps tendon extending to the medial and lateral retinaculum. This having been accomplished, the edges of tear debrided and the proximal aspect of the patella was identified. The tear was identified the fiber tape. The quad tendon is repaired with modified [place] type suture. This having been accomplished, the attending having been gathered with the knee in approximately 5 degrees short of full extension, the guide wires were placed in the patella, drilling was accomplished, and the appropriate size SwiveLock anchor was introduced. This adequately repairs the quadriceps tendon to the superior aspect of the patella. Further repair of the medial and lateral retinaculum was accomplished with #2 fiber wire. Synovial fluid is sent for stat Gram stain, number of white cells per high-power field, aerobic, anaerobic, AFB and fungal cultures. This having been accomplished, the wound was thoroughly irrigated and closure was in layers. Tourniquet was deflated. Closure was in layers with interrupted Vicryl and martir. Josh Carrington compression dressing and knee immobilizers applied. Postoperative x-rays revealed acceptable position of the construct. The knee was manipulated. There was no evidence of instability, no need to remove or change any components whatsoever. The total knee replacement is stable and well aligned. Stevan Ann MD
--- NOTE | 2017-05-30 11:39 | RAD ---
PROCEDURE: Left Knee Radiographs. HISTORY: Pain. COMPARISON: Status post biceps repair left knee. Comparison made with prior radiographs dated 04/07/2017 FINDINGS: BONES: Re- demonstrated is left total knee arthroplasty. Hardware appears intact. Surrounding hardware appears intact with satisfactory alignment. . . Postoperative changes includes soft tissue swelling and a small amount of subcutaneous emphysema. Multiple skin closure martir are present. JOINTS: Normal. No osteoarthritis. JOINT EFFUSION: None. OTHER FINDINGS: None. IMPRESSION: Re- demonstrated is total knee arthroplasty. No evidence hardware failure. Subcutaneous emphysema and soft tissue swelling.
--- NOTE | 2017-05-30 16:23 | CP.PCM.PN ---
Subjective - Date & Time of Evaluation Date of Evaluation: 05/30/17 Time of Evaluation: 13:30 - Subjective Subjective: Pt seen and examined. Denied any pain or complaint Objective - Vital Signs/Intake and Output Vital Signs (last 24 hours): Temp Pulse Resp BP Pulse Ox 97.9 F 73 20 104/66 99 05/30/17 08:33 05/30/17 08:33 05/30/17 08:33 05/30/17 08:33 05/30/17 08:33 Intake and Output: 05/30/17 05/30/17 06:59 18:59 Intake Total 100 Balance 100 - Medications Medications: Current Medications Apixaban (Eliquis) 5 mg PO DAILY [facility] PRN Reason: Protocol Artificial Tears (Artificial Tears) 2 drop OU Q6 PRN PRN Reason: Dry eyes Aspirin (Ecotrin) 81 mg PO BID [facility] Last Admin: 05/30/17 11:47 Dose: 81 mg Docusate Sodium (Colace) 100 mg PO BID [facility] Last Admin: 05/30/17 11:47 Dose: 100 mg Ferrous Sulfate (Feosol) 325 mg PO BID [facility] Last Admin: 05/30/17 11:47 Dose: 325 mg Hydromorphone HCl (Dilaudid 0.2 Mg/Ml Entry Level Sales Consultant) 0 mg IV PRN PRN; Protocol PRN Reason: Pain, severe (8-10) Last Admin: 05/29/17 20:00 Dose: 0.2 mg Lactated Ringer's (Lactated Ringer's) 1,000 mls @ 50 mls/hr IV .Q20H [facility] Last Admin: 05/29/17 20:30 Dose: 50 mls/hr Tamsulosin HCl (Flomax) 0.4 mg PO HS [facility] Last Admin: 05/29/17 22:06 Dose: 0.4 mg Tramadol HCl (Ultram) 50 mg PO TID PRN PRN Reason: Pain, severe (8-10) - Labs Labs: 05/30/17 06:10 05/30/17 06:10 - Constitutional Appears: No Acute Distress - Head Exam Head Exam: ATRAUMATIC - Eye Exam Eye Exam: absent: Scleral icterus - ENT Exam ENT Exam: Mucous Membranes Moist - Neck Exam Neck Exam: absent: Meningismus - Respiratory Exam Respiratory Exam: absent: Rhonchi, Wheezes, Respiratory Distress - Cardiovascular Exam Cardiovascular Exam: REGULAR RHYTHM, +S1, +S2 - GI/Abdominal Exam GI & Abdominal Exam: Soft. absent: Tenderness - Rectal Exam Rectal Exam: Deferred - Extremities Exam Extremities Exam: absent: Full ROM (left knee on immobilizer) - Back Exam Back Exam: absent: tenderness - Neurological Exam Neurological Exam: Alert, Oriented x3 - Psychiatric Exam Psychiatric exam: Normal Affect - Skin Skin Exam: Dry, Intact Assessment and Plan - Assessment and Plan (Free Text) Assessment: 82 yo male with history of Arthritis, BPH and DVT had left TKR on 04/07/2017 after failing conservative management. He was discharged to rehab center for therapy and did well. He developed bronchitis after he was discharged from rehab and was admitted in a hospital in [facility]. His stay there was complicated with DVT of the left leg and a fall. He was placed on Eliquis but was unable to put pressure on the left leg since then. Saw Dr Ann and was advised to have revision of the left TKR 1. Dislocated Left TKR had primary repair of the quad tendon [facility] 2. DVT resume Eliquis 3. BPH continue Tamsulosin
[2017-05-31] MEDS: Lactated Ringer's 1,000 ML IV SCH (05:45)
[2017-05-31 08:21] VITALS: BP 102/64; PULSE 68; RESP 20; TEMP 97.8; O2SAT 96
--- NOTE | 2017-05-31 12:59 | CP.PCM.DIS ---
Provider - Provider Date of Admission: 05/29/17 18:00 Attending physician: Antonino Boone MD Primary care physician: Stevan Ann III, MD Consults: Dr. Ann- orthopedics Dr. Vaughn- ID PT consult Time Spent in preparation of Discharge (in minutes): 25 Hospital Course - Lab Results Lab Results: Micro Results 05/29/17 15:51 Body Fluid - Knee-Left Gram Stain - Final 05/29/17 15:51 Body Fluid - Knee-Left Anaerobic Culture - Final NO ANAEROBES ISOLATED. 05/29/17 15:51 Body Fluid - Knee-Left Body Fluid Culture - Preliminary Staphylococcus Aureus 05/29/17 17:00 Knee - Left Gram Stain - Final 05/29/17 17:00 Knee - Left Wound Culture - Preliminary Gram Positive Cocci 05/29/17 17:00 Knee - Left Gram Stain - Final 05/29/17 17:00 Knee - Left Wound Culture - Preliminary Gram Positive Cocci 05/29/17 17:00 Knee - Left Gram Stain - Final 05/29/17 17:00 Knee - Left Wound Culture - Preliminary Gram Positive Cocci 05/29/17 17:00 Knee - Left Gram Stain - Final 05/29/17 17:00 Knee - Left Wound Culture - Preliminary Gram Positive Cocci 05/29/17 17:00 Knee - Left Gram Stain - Final 05/29/17 17:00 Knee - Left Wound Culture - Preliminary NO GROWTH AFTER 24 HOURS 05/29/17 17:00 Knee - Left Gram Stain - Final 05/29/17 17:00 Knee - Left Wound Culture - Preliminary NO GROWTH AFTER 24 HOURS 05/29/17 17:00 Knee - Left Gram Stain - Final 05/29/17 17:00 Knee - Left Wound Culture - Preliminary NO GROWTH AFTER 24 HOURS 05/29/17 17:00 Knee - Left Gram Stain - Final 05/29/17 17:00 Knee - Left Wound Culture - Preliminary NO GROWTH AFTER 24 HOURS 05/29/17 17:00 Other: Please Indicate Mycobacterial Culture - Preliminary Most Recent Lab Values WBC 8.3 K/uL (4.8-10.8) 05/30/17 06:10 RBC 3.35 Mil/uL (4.40-5.90) L 05/30/17 06:10 Hgb 9.8 g/dL (12.0-18.0) L 05/30/17 06:10 Hct 29.5 % (35.0-51.0) L 05/30/17 06:10 MCV 88.0 fl (80.0-94.0) 05/30/17 06:10 MCH 29.2 pg (27.0-31.0) 05/30/17 06:10 MCHC 33.2 g/dL (33.0-37.0) 05/30/17 06:10 RDW 17.3 % (11.5-14.5) H 05/30/17 06:10 Plt Count 181 K/uL (130-400) 05/30/17 06:10 MPV 7.7 fl (7.2-11.7) 05/30/17 06:10 Neut % (Auto) 79.6 % (50.0-75.0) H 05/30/17 06:10 Lymph % (Auto) 13.0 % (20.0-40.0) L 05/30/17 06:10 [place] % (Auto) 7.4 % (0.0-10.0) 05/30/17 06:10 Eos % (Auto) 0.0 % (0.0-4.0) 05/30/17 06:10 Baso % (Auto) 0.0 % (0.0-2.0) 05/30/17 06:10 Neut # (Auto) 6.6 K/uL (1.8-7.0) 05/30/17 06:10 Lymph # (Auto) 1.1 K/uL (1.0-4.3) 05/30/17 06:10 [place] # (Auto) 0.6 K/uL (0.0-0.8) 05/30/17 06:10 Eos # (Auto) 0.0 K/uL (0.0-0.7) 05/30/17 06:10 Baso # (Auto) 0.0 K/uL (0.0-0.2) 05/30/17 06:10 Sodium 139 mmol/l (132-148) 05/30/17 06:10 Potassium 4.0 MMOL/L (3.6-5.0) 05/30/17 06:10 Chloride 104 mmol/L (98-107) 05/30/17 06:10 Carbon Dioxide 27 mmol/L (22-30) 05/30/17 06:10 Anion Gap 12 (10-20) 05/30/17 06:10 BUN 21 mg/dl (9-20) H 05/30/17 06:10 Creatinine 0.8 mg/dl (0.8-1.5) 05/30/17 06:10 Est GFR ( Amer) > 60 05/30/17 06:10 Est GFR (Non-Af Amer) > 60 05/30/17 06:10 Random Glucose 125 mg/dL (75-110) H 05/30/17 06:10 Calcium 8.4 mg/dL (8.4-10.2) 05/30/17 06:10 Fluid Type Synovial fluid 05/29/17 15:51 Synovial WBC 7868.0 /mm3 (0.0-150.0) H 05/29/17 15:51 Synovial RBC 5664.0 /mm3 (0.0-0.0) H 05/29/17 15:51 Synovial Neutrophils 76.0 % (0-0) H 05/29/17 15:51 Synovial Lymphocytes 14.0 % (0-0) H 05/29/17 15:51 Synov Monos/Macrophage 10 % (0-0) H 05/29/17 15:51 Synovial Fluid Comment Sl bloody 05/29/17 15:51 Blood Type O POSITIVE 05/29/17 07:40 Antibody Screen Negative 05/29/17 07:40 BBK History Checked Patient has bt 05/29/17 07:40 - Hospital Course Hospital Course: 82 yo male with history of Arthritis, BPH and DVT had left TKR on 04/07/2017 after failing conservative management. He was discharged to rehab center for therapy and did well. He developed bronchitis after he was discharged from rehab and was admitted in a hospital in [facility]. His stay there was complicated with DVT of the left leg and a fall. He was placed on Eliquis but was unable to put pressure on the left leg since then. Saw Dr Ann and was advised to have revision of the left TKR. The patient was admitted on 05/29/2017 and had primary repair of the left quad tendon on 05/29/2017 which was uncomplicated. The patient is currently feeling better and his pain is controlled with ultram. He has been off Hydromorphone pump since 05/30/2017 evening. He is being discharged today to subacute rehabilitation for further physical and occupational therapy. 1. Dislocated Left TKR had primary repair of the quad tendon continue PT/OT for transfer to [facility] today 2. Recent DVT Continue Eliquis at [facility] 3. BPH continue Tamsulosin Discharge Exam - Additional Findings Additional findings: Physical exam: Constitutional- cooperative, awake, alert Head- NCAT, PERRL Eye- PERRL, EOMI ENT- normal exam, MMM. Neck- normal inspection, supple, no JVD Respiratory- CTAB, no wheezes rales rhonchi Cardiovascular- RRR, +S1, +S2 no MRG GI/Abdominal- normal bowel sounds, soft, no mass, no hsm Skin- warm, dry Extremities Exam- + Left knee immobilizer. normal capillary refill, normal inspection Neurological Exam- alert, awake, oriented Psych- normal mood, normal affect Discharge Plan - Follow Up Plan Condition: GOOD Disposition: REHAB FACILITY/REHAB UNIT Referrals: Stevan Ann III, MD [Primary Care Provider] -
--- NOTE | 2017-05-31 14:49 | CP.PCM.PN ---
Subjective - Date & Time of Evaluation Date of Evaluation: 05/31/17 Time of Evaluation: 14:45 - Subjective Subjective: ID NOTE WAS NOT ADVISED OF CONSULT UNTIL LAST NIGHI PATIENT DISCHARGED PRIOR TO MY ARRIVAL AT HOSPITAL Objective - Vital Signs/Intake and Output Vital Signs (last 24 hours): Temp Pulse Resp BP Pulse Ox 97.8 F 68 20 102/64 96 05/31/17 08:20 05/31/17 08:20 05/31/17 08:20 05/31/17 08:20 05/31/17 08:20 - Medications Medications: Current Medications Apixaban (Eliquis) 5 mg PO BID [facility] PRN Reason: Protocol Last Admin: 05/31/17 09:09 Dose: 5 mg Artificial Tears (Artificial Tears) 2 drop OU Q6 PRN PRN Reason: Dry eyes Aspirin (Ecotrin) 81 mg PO BID [facility] Last Admin: 05/31/17 09:09 Dose: 81 mg Docusate Sodium (Colace) 100 mg PO BID [facility] Last Admin: 05/31/17 09:09 Dose: 100 mg Ferrous Sulfate (Feosol) 325 mg PO BID [facility] Last Admin: 05/31/17 09:09 Dose: 325 mg Lactated Ringer's (Lactated Ringer's) 1,000 mls @ 50 mls/hr IV .Q20H [facility] Last Admin: 05/31/17 05:45 Dose: 50 mls/hr Tamsulosin HCl (Flomax) 0.4 mg PO HS [facility] Last Admin: 05/30/17 21:51 Dose: 0.4 mg Tramadol HCl (Ultram) 50 mg PO TID PRN PRN Reason: Pain, severe (8-10) - Labs Labs: 05/30/17 06:10 05/30/17 06:10
== END 2017-05-31 14:25 | DRG 502 ==
LOC: H.OPSURG 06:29 → H.MEDSURG1 18:00
PROC: 0LQM0ZZ Repair Left Upper Leg Tendon, Open Approach (ICD-10-PCS; 2017-05-29)
PROC: 3E0T3BZ Introduction of Anesthetic Agent into Peripheral Nerves and Plexi, Percutaneous Approach (ICD-10-PCS; 2017-05-29)
PROC: 0LQR0ZZ Repair Left Knee Tendon, Open Approach (ICD-10-PCS; principal; 2017-05-29 13:15)
PROC: 0KBR0ZZ Excision of Left Upper Leg Muscle, Open Approach (ICD-10-PCS; 2017-05-29 13:15)
PROC: 3E0234Z Introduction of Serum, Toxoid and Vaccine into Muscle, Percutaneous Approach (ICD-10-PCS; 2017-05-30)
DX: S76.112A Strain of left quadriceps muscle, fascia and tendon, initial encounter (principal); M19.90 Unspecified osteoarthritis, unspecified site; N40.0 Benign prostatic hyperplasia without lower urinary tract symptoms; Z79.01 Long term (current) use of anticoagulants; X58.XXXA Exposure to other specified factors, initial encounter; Y92.9 Unspecified place or not applicable; Y99.9 Unspecified external cause status; Z86.718 Personal history of other venous thrombosis and embolism; Z88.6 Allergy status to analgesic agent; Z88.5 Allergy status to narcotic agent; Z23 Encounter for immunization; S86.812A Strain of other muscle(s) and tendon(s) at lower leg level, left leg, initial encounter; Z96.652 Presence of left artificial knee joint

== ENCOUNTER 2017-06-27 15:03 | Inpatient (IN) | payer MEDICARE ==
[2017-06-27 15:03] VITALS: BMI 20.3
--- NOTE | 2017-06-27 16:36 | ED PDOC ---
Addendum entered and electronically signed by Tricia Aguirre MD 06/27/17 18:03: Addendum Addendum: 06/27/17 18:02 Called Facility [facility] [place]. Patient received cefepime dose today 6 am. Patient has not received Vancomycin today. Original Note: Lower Extremity Pain/Injury Chief Complaint (Provider): left knee pain History Per: Patient History/Exam Limitations: no limitations Onset/Duration Of Symptoms: Days (7) Current Symptoms Are (Timing): Still Present Pain Scale Rating Of: 7 Additional Complaint(s): 82 yo, m, PMhx/o Arthritis, BPH, DVT, left TKR 03/2017, with recent hospitalization 1 month ago 05/2017 for left cuad tendon repair after a fall is brought in by EMS sent from [facility] for evaluation of left knee. Hx/o taken by patient and daughter who c/o left knee pain for the last 7 days and reports that patient was evaluated today by Dr Saldana in his office and left knee noted with dislocation and they were advised to bring patient to ED for admission, medical clearance and OR. Patient since discharge has been on Abx Vanco, cefepime. Patient denies fever, cough, chest pain, SOB, n,v,d,abd pain, dysuria. On evaluation patient looks mild lethargic, oriented, with mild dehydration, unable to move left low ext due to pain. PMD: Raffi Lacy Ortho:Dr Saldana - Hip Currently Unable To: Bear Weight - Ankle/Foot Currently Unable To: Bear Weight - Risk Factors DVT Risk Factors: Pos: Decreased Mobility, Decreased Activity, Extremity Immobiliztion, Extremity Paralyzed, Hospitalization, History Of DVT <Tricia Aguirre - Last Filed: 06/27/17 18:02> <Keyur Waller - Last Filed: 06/27/17 18:13> Time Seen by Provider: 06/27/17 15:12 Chief Complaint (Nursing): Lower Extremity Problem/Injury Supervising Attending Note - Supervising Attending Note The Documented history was done by the: Physician Professor Of Public Administration, Attending Physician The documented physical exam was done by the: Physician Professor Of Public Administration, Attending Physician The documented procedures were done by the: Physician Professor Of Public Administration, Attending Physician - Attestation: I have personally seen and examined this patient.: Yes I have fully participated in the care of the patient.: Yes I have reviewed all pertinent clinical information, including history, physical exam and plan: Yes <Keyur Waller - Last Filed: 06/27/17 18:13> Past Medical History Vital Signs: Last Vital Signs Temp 98.1 F 06/27/17 15:05 Pulse 84 06/27/17 15:05 Resp 16 06/27/17 15:05 BP 99/61 L 06/27/17 15:05 Pulse Ox 99 06/27/17 15:05 - Medical History PMH: Anemia, Arthritis, Dementia, HTN Denies: Chronic Kidney Disease - Surgical History Surgical History: Comment Only: Tonsillectomy (O.U) Other surgeries: -Left knee replacement - Family History Family History: States: Unknown Family Hx - Social History Alcohol: None Drugs: Denies <Tricia Aguirre - Last Filed: 06/27/17 18:02> Vital Signs: Last Vital Signs Temp 98.1 F 06/27/17 15:05 Pulse 76 06/27/17 17:41 Resp 20 06/27/17 17:41 BP 107/65 06/27/17 17:41 Pulse Ox 99 06/27/17 17:56 <Keyur Waller - Last Filed: 06/27/17 18:13> - Home Medications Home Medications: Ambulatory Orders Medication Instructions Recorded ALPRAZolam [Xanax] 0.25 mg PO Q12 06/27/17 Acetaminophen [Tylenol 325mg tab] 650 mg PO Q6 PRN 06/27/17 Acetaminophen [Tylenol 325mg tab] 650 mg PO Q6 PRN 06/27/17 Apixaban [Eliquis] 5 mg PO DAILY 06/27/17 Ascorbic Acid [Vitamin C 500 mg 500 mg PO DAILY 06/27/17 Tab] Cefepime 1gm in NS 50ml [Maxipime 1 gm IV Q12 06/27/17 1gm] Cholecalciferol [Vitamin D 1000 IU] 1,000 unit PO DAILY 06/27/17 Lactobacillus Acidophilus 1 cap PO BID 06/27/17 [Acidophilus Lactobacillus] Magnesium Hydroxide [Milk Of 30 ml PO DAILY PRN 06/27/17 Magnesia] Mirtazapine [Remeron] 7.5 mg PO HS 06/27/17 Multimineral/Multivitamin 1 tab PO DAILY 06/27/17 [Therapeutic-M Tab] Polyethylene Glycol/Polyvinyl 2 drop EACHEYE Q4H PRN 06/27/17 [Artificial Tears] Tamsulosin [Flomax] 0.4 mg PO DAILY 06/27/17 Vancomycin 1 GM [Vancomycin 1GM in 1 gm IV Q12 06/27/17 Normal Saline Addvantage] Zinc Sulfate [Orazinc] 220 mg PO DAILY 06/27/17 traMADol [Ultram] 50 mg PO Q6 PRN 06/27/17 - Allergies Allergies/Adverse Reactions: Allergies Allergy/AdvReac Type Severity Reaction Status Date / Time acetaminophen [From Percocet] Allergy ITCHING Verified 04/09/17 06:41 celecoxib [From Celebrex] Allergy ITCHING Verified 04/07/17 06:23 oxycodone [From Percocet] Allergy ITCHING Verified 04/09/17 06:41 Wells Criteria for PE - Wells Criteria for Pulmonary Embolism Clinical Signs and Symptoms of DVT: No P.E is #1 Diagnosis, or Equally Likely: No Heart Rate >100: No Immobilization at least 3 days;Surgery previous 4 weeks: Yes Previous, objectively diagnosed PE or DVT: Yes Hemoptysis: No Malignancy w/treatment within 6 months, or palliative: No Total Score: 3.0 <Tricia Aguirre - Last Filed: 06/27/17 18:02> Review of Systems Musculoskeletal: Positive for: Other (left knee pain) <Tricia Aguirre - Last Filed: 06/27/17 18:02> ROS Statement: Except As Marked, All Systems Reviewed And Found Negative Constitutional: Negative for: Fever <Keyur Waller - Last Filed: 06/27/17 18:13> Physical Exam - Physical Exam Appears: Positive for: No Acute Distress Head Exam: Positive for: ATRAUMATIC, NORMOCEPHALIC Skin: Positive for: Normal Color Eye Exam: Positive for: Normal appearance Neck: Positive for: Normal Cardiovascular/Chest: Positive for: Regular Rate, Rhythm. Negative for: Murmur Respiratory: Positive for: Rales (right lung base). Negative for: Wheezing Gastrointestinal/Abdominal: Positive for: Soft. Negative for: Tenderness, Guarding, Rebound Back: Positive for: Normal Inspection Extremity: Positive for: Deformity (left knee deformity, dislocated, swollen, metalic martir anterior from knee to distal 1/3 thigh), Swelling (left knee: Large joint effusion with serosanguineous discharge), Other (RUE: picc line) Neurologic/Psych: Positive for: Alert <iMssyTricia hoskins - Last Filed: 06/27/17 18:02> - Laboratory Results Result Diagrams: 06/27/17 17:03 06/27/17 17:03 - ECG O2 Sat by Pulse Oximetry: 99 <MissyTricia hoskins - Last Filed: 06/27/17 18:02> - Laboratory Results Result Diagrams: 06/27/17 17:03 06/27/17 17:03 <Keyur Waller - Last Filed: 06/27/17 18:13> Medical Decision Making Medical Decision Makin:[age] yo , m , PMhx/o BPH, arthritis, DVT, TKR (04/07/17) s/p cuad tendon repair 05/29/[address] Saldana with left knee dislocation, admission and med clearance for OR Impression Left knee dislocation left knee joint effusion s/p infection, recent trauma (unknown) Plan CBC, CMP, Blood cx, VBG, troponin UA, Urine cx EKG, CXR Iv fluids NS 500 ml Patient will be admitted by Hospitalist Dr Muñiz aware about admission <MissyTricia hoskins - Last Filed: 06/27/17 18:02> Disposition - Disposition Disposition Time: 17:50 <Tricia Aguirre - Last Filed: 06/27/17 18:02> - Patient ED Disposition Is Patient to be Admitted: Yes Discussed With : Antonino Boone Doctor Will See Patient In The: ED Counseled Patient/Family Regarding: Studies Performed, Diagnosis - Pt Status Changed To: Hospital Disposition Of: Inpatient - Admit Certification Admit to Inpatient:: After my assessment, the patient will require hospitalization for at least two midnights. This is because of the severity of symptoms shown, intensity of services needed, and/or the medical risk in this patient being treated as an outpatient. - POA Present On Arrival: None <Keyur Waller - Last Filed: 06/27/17 18:13> - Clinical Impression Clinical Impression: Dehydration, Left knee dislocation - Disposition Condition: FAIR
[2017-06-27] MEDS ORDERED: Sodium Chloride 0.9% 500 ML IV SCH (16:45)
[2017-06-27 17:08] LABS: BASO # 0.2 K/uL (0.0-0.2); BASO % 3.3 % (0.0-2.0); EOS # 0.1 K/uL (0.0-0.7); HEMOGLOBIN 9.8 g/dL (12.0-18.0); LYMPH # 1.6 K/uL (1.0-4.3); LYMPH % 23.6 % (20.0-40.0); MEAN CORPUSCULAR HEMOGLOBIN 29.7 pg (27.0-31.0); MEAN CORPUSCULAR HGB CONC 33.3 g/dL (33.0-37.0); MONO # 0.8 K/uL (0.0-0.8); NEUT # 4.2 K/uL (1.8-7.0); NEUT % 61.1 % (50.0-75.0); NRBC % 0.1 % (0.0-0.0); PLATELET COUNT 131 K/uL (130-400); WHITE BLOOD COUNT 6.9 K/uL (4.8-10.8)
[2017-06-27 17:09] LABS: GRANULAR CAST 1 /lpf (0-1); SQUAMOUS EPITHIAL < 1 /hpf (0-5); URINE BILIRUBIN NEGATIVE (NEGATIVE); URINE BLOOD NEGATIVE (NEGATIVE); URINE CALCIUM OXALATE CRYSTALS MOD /hpf (<OCC); URINE CLARITY SLIGHTY-CLOUDY (Clear); URINE COLOR YELLOW (YELLOW); URINE GLUCOSE (UA) NEG (Normal); URINE LEUKOCYTE ESTERASE NEG Leu/uL (Negative); URINE PROTEIN 30 mg/dL (NEGATIVE); URINE UROBILINOGEN 0.2-1.0 mg/dL (0.2-1.0)
[2017-06-27 17:18] LABS: VENOUS BLOOD GAS BASE EXCESS 7.8 mmol/L (0.0-2.0); VENOUS BLOOD GAS PCO2 49 mmHg (40-60); VENOUS BLOOD GAS PO2 50 mm/Hg (30-55); VENOUS BLOOD PH 7.44 (7.32-7.43)
[2017-06-27 17:18] LABS: ALB/GLOB RATIO 0.7 (1.0-2.1); ALBUMIN 2.6 g/dL (3.5-5.0); ALT/SGPT 20 U/L (21-72); AST/SGOT 27 U/L (17-59); BLOOD UREA NITROGEN 19 mg/dl (9-20); CALCIUM 8.3 mg/dL (8.4-10.2); GFR AFRICAN-AMERICAN > 60; GFR NON-AFRICAN AMERICAN > 60
[2017-06-27 17:21] LABS: INR 1.5 (0.9-1.2); PARTIAL THROMBOPLASTIN TIME 45.3 Seconds (25.6-37.1); PROTHROMBIN TIME 16.7 Seconds (9.8-13.1)
--- NOTE | 2017-06-27 17:24 | RAD ---
PROCEDURE: Left Knee Radiographs. HISTORY: Pain. COMPARISON: None. FINDINGS: BONES: No definitive acute fractures identified however the tibia is dislocated posteriorly with distal femoral and proximal tibial prosthetic components intact grossly. Diffuse osteopenia suggests osteoporosis. Skin martir are identified anteriorly. JOINTS: As above JOINT EFFUSION: None. OTHER FINDINGS: None. IMPRESSION: Posterior tibial dislocation, status post left total knee replacement. No acute fracture appreciable grossly. Diffuse osteopenia suggests osteoporosis.
--- NOTE | 2017-06-27 17:26 | RAD ---
HISTORY: left knee septic joint COMPARISON: No prior. FINDINGS: LUNGS: A right abstract PICC is identified inserted terminating at the superior cava. No definite left-sided acute infiltrate bilaterally. Rotation of the patient to the right limits evaluation of the hilar vascular markings. The right apex appears opacified of indeterminate etiology. Trace linear atelectasis or fibrosis in the left base laterally. PLEURA: No significant pleural effusion identified, no pneumothorax apparent. CARDIOVASCULAR: Normal. OSSEOUS STRUCTURES: No significant abnormalities. VISUALIZED UPPER ABDOMEN: Surgical clips are seen in the right upper quadrant abdomen. OTHER FINDINGS: None. IMPRESSION: Nonspecific density seen the right apex which could reflect neoplasm though infiltrate is not excluded here. Follow-up chest is advised if not already evaluated. Right PICC in situ terminating in SVC.
[2017-06-27 17:30] LABS: B-TYPE NATRIURETIC PEPTIDE 758 pg/ml (0-900)
[2017-06-27 17:46] LABS: VENOUS BLOOD GAS BASE EXCESS 5.8 mmol/L (0.0-2.0); VENOUS BLOOD GAS PCO2 47 mmHg (40-60); VENOUS BLOOD GAS PO2 46 mm/Hg (30-55); VENOUS BLOOD PH 7.43 (7.32-7.43)
[2017-06-27 18:11] LABS: EOSINOPHIL 1 % (0-7); LYMPHOCYTE 17 % (20-50); MONOCYTE 10 % (0-10); NEUTROPHIL 54 % (42-75); REACTIVE LYMPHOCYTES 18 % (0-0); TOTAL CELLS COUNTED 100
[2017-06-27 18:12] LABS: ANISOCYTOSIS SLIGHT; PLATELET ESTIMATE NORMAL (NORMAL); POIKILOCYTOSIS SLIGHT
[2017-06-27 18:14] LABS: HYPOCHROMIC SLIGHT; STOMATOCYTES SLIGHT
[2017-06-27 18:15] LABS: SMUDGE CELLS PRESENT
--- NOTE | 2017-06-27 18:31 | CP.PCM.HP ---
History of Present Illness - History of Present Illness History of Present Illness: 82 yo male with history of DVT, Arthritis and BPH sent back from shelter because of pain on left knee. Patient was discharged to [facility] a month ago after revision was done on his left TKR. Wound culture grew Staph aureus. He was put on IV antibiotics which was continued when he was transferred to [facility]. About a week ago as per daughter, patient was lifted and probably injured and dislocated his left knee. Patient has been in pain since then. Present on Admission - Present on Admission Any Indicators Present on Admission: Yes History of DVT/PE: Yes History of Uncontrolled Diabetes: No Urinary Catheter: No Decubitus Ulcer Present: No Review of Systems - Review of Systems All systems: reviewed and no additional remarkable complaints except (aside from those mentioned above, 14 point system review were negative by me) Past Patient History - Tetanus Immunizations Tetanus Immunization: Unknown - Past Medical History & Family History Past Medical History?: Yes - Past Social History Smoking Status: Never Smoked Alcohol: None Drugs: Denies - CARDIAC Hx Hypertension: Yes - PULMONARY Hx Respiratory Disorders: No - NEUROLOGICAL Hx Dementia: Yes - HEENT Hx HEENT Problems: Yes Hx Cataracts: Yes - RENAL Hx Chronic Kidney Disease: No - ENDOCRINE/METABOLIC Hx Endocrine Disorders: No - HEMATOLOGICAL/ONCOLOGICAL Hx Anemia: Yes - INTEGUMENTARY Hx Dermatological Problems: No - MUSCULOSKELETAL/RHEUMATOLOGICAL Hx Arthritis: Yes - GASTROINTESTINAL Hx Gastrointestinal Disorders: Yes - GENITOURINARY/GYNECOLOGICAL Hx Genitourinary Disorders: No Hx Prostate Cancer: Yes (malignant neoplasm) - PSYCHIATRIC Hx Substance Use: No - SURGICAL HISTORY Hx Tonsillectomy: (O.U) - ANESTHESIA Hx Anesthesia: Yes Hx Anesthesia Reactions: No Hx Malignant Hyperthermia: No Meds Allergies/Adverse Reactions: Allergies Allergy/AdvReac Type Severity Reaction Status Date / Time acetaminophen [From Percocet] Allergy ITCHING Verified 04/09/17 06:41 celecoxib [From Celebrex] Allergy ITCHING Verified 04/07/17 06:23 oxycodone [From Percocet] Allergy ITCHING Verified 04/09/17 06:41 Physical Exam - Constitutional Appears: No Acute Distress - Head Exam Head Exam: ATRAUMATIC - Eye Exam Eye Exam: absent: Scleral icterus - ENT Exam ENT Exam: Mucous Membranes Moist - Neck Exam Neck exam: Negative for: Meningismus - Respiratory Exam Respiratory Exam: absent: Rhonchi, Wheezes, Respiratory Distress - Cardiovascular Exam Cardiovascular Exam: REGULAR RHYTHM, +S1, +S2 - GI/Abdominal Exam GI & Abdominal Exam: Soft. absent: Tenderness - Rectal Exam Rectal Exam: Deferred - Extremities Exam Extremities exam: Negative for: full ROM (left knee on immobilizer) - Back Exam Back exam: absent: tenderness - Neurological Exam Neurological exam: Alert, Oriented x3 - Psychiatric Exam Psychiatric exam: Normal Affect - Skin Skin Exam: Dry, Intact Results - Vital Signs Recent Vital Signs: Last Vital Signs Temp 98.1 F 06/27/17 15:05 Pulse 76 06/27/17 17:41 Resp 20 06/27/17 17:41 BP 107/65 06/27/17 17:41 Pulse Ox 99 06/27/17 17:56 - Labs Result Diagrams: 06/27/17 17:03 06/27/17 17:03 Labs: Laboratory Results - last 24 hr 06/27/17 06/27/17 06/27/17 16:45 17:03 17:03 WBC 6.9 RBC 3.30 L Hgb 9.8 L Hct 29.4 L MCV 89.0 MCH 29.7 MCHC 33.3 RDW 16.0 H Plt Count 131 MPV 8.0 Neut % (Auto) 61.1 Lymph % (Auto) 23.6 [place] % (Auto) 11.0 H Eos % (Auto) 1.0 Baso % (Auto) 3.3 H Neut # (Auto) 4.2 Lymph # (Auto) 1.6 [place] # (Auto) 0.8 Eos # (Auto) 0.1 Baso # (Auto) 0.2 PT INR APTT pO2 VBG pH VBG pCO2 VBG HCO3 VBG Total CO2 VBG O2 Sat (Calc) VBG Base Excess VBG Potassium Glucose Lactate FiO2 Sodium 137 Potassium 3.9 Chloride 101 Carbon Dioxide 31 H Anion Gap 9 L BUN 19 Creatinine 0.5 L Est GFR ( Amer) > 60 Est GFR (Non-Af Amer) > 60 Random Glucose 108 Calcium 8.3 L Phosphorus 3.2 Magnesium 2.1 Total Bilirubin 0.5 AST 27 ALT 20 L Alkaline Phosphatase 69 Troponin I < 0.0120 NT-Pro-B Natriuret Pep 758 Total Protein 6.6 Albumin 2.6 L Globulin 4.0 H Albumin/Globulin Ratio 0.7 L Venous Blood Potassium Urine Color Yellow Urine Clarity Slighty-cloudy Urine pH 6.0 Ur Specific [place] 1.021 Urine Protein 30 Urine Glucose (UA) Neg Urine Ketones Trace Urine Blood Negative Urine Nitrate Negative Urine Bilirubin Negative Urine Urobilinogen 0.2-1.0 Ur Leukocyte Esterase Neg Urine RBC (Auto) 4 H Urine Microscopic WBC 4 Ur Squamous Epith Cells < 1 Calcium Oxalate Crystal Mod H Granular Casts (Auto) 1 06/27/17 06/27/17 06/27/17 17:03 17:15 17:43 WBC RBC Hgb Hct MCV MCH MCHC RDW Plt Count MPV Neut % (Auto) Lymph % (Auto) [place] % (Auto) Eos % (Auto) Baso % (Auto) Neut # (Auto) Lymph # (Auto) [place] # (Auto) Eos # (Auto) Baso # (Auto) PT 16.7 H INR 1.5 H APTT 45.3 H pO2 50 46 VBG pH 7.44 H 7.43 VBG pCO2 49 47 VBG HCO3 30.7 29.1 VBG Total CO2 32.6 H VBG O2 Sat (Calc) 91.5 H 88.6 H VBG Base Excess 7.8 H 5.8 H VBG Potassium 3.8 Glucose 123 H Lactate 1.5 FiO2 21.0 Sodium 135.0 Potassium Chloride 105.0 Carbon Dioxide Anion Gap BUN Creatinine Est GFR ( Amer) Est GFR (Non-Af Amer) Random Glucose Calcium Phosphorus Magnesium Total Bilirubin AST ALT Alkaline Phosphatase Troponin I NT-Pro-B Natriuret Pep Total Protein Albumin Globulin Albumin/Globulin Ratio Venous Blood Potassium 3.8 Urine Color Urine Clarity Urine pH Ur Specific [place] Urine Protein Urine Glucose (UA) Urine Ketones Urine Blood Urine Nitrate Urine Bilirubin Urine Urobilinogen Ur Leukocyte Esterase Urine RBC (Auto) Urine Microscopic WBC Ur Squamous Epith Cells Calcium Oxalate Crystal Granular Casts (Auto) Assessment & Plan - Assessment and Plan (Free Text) Assessment: 82 yo male with history of DVT, Arthritis and BPH sent back from shelter because of pain on left knee. He was discharged to [facility] a month ago after revision was done on his left TKR. Wound culture grew Staph aureus. He was put on IV Cefepime and Vanco which were continued when he was transferred to [facility]. About a week ago as per daughter, patient was lifted and probably injured and dislocated his left knee. Patient has been in pain since then. 1. Dislocated Left TKR for possible revision hold Eliquis continue Cefepime and Vanco ortho consult with Dr Ann ID consult with Dr Vaughn 2. DVT Eliquis put on hold Lovenox 40mg SC daily hematology consult with Dr Sal 3. BPH on Flomax
[2017-06-27] MEDS ORDERED: Artificial Tears Opht Soln OU PRN (19:06)
[2017-06-27] MEDS ORDERED: Magnesium Hydroxide Susp 30 ml UD PO PRN (19:06)
--- NOTE | 2017-06-27 20:45 | CT ---
EXAM: CT Left Lower Extremity Without Intravenous Contrast, Knee CLINICAL HISTORY: 82 years old, male; Signs and symptoms; Other: Dislocation; Prior surgery; Surgery date: 1-6 months; Surgery type: Revision left knee; Additional info: Prostethis knee dislocation TECHNIQUE: Axial computed tomography images of the left knee without intravenous contrast. All CT scans at this facility use one or more dose reduction techniques, viz.: automated exposure control; ma/kV adjustment per patient size (including targeted exams where dose is matched to indication; i.e. head); or iterative reconstruction technique. Coronal and sagittal reformatted images were created and reviewed. COMPARISON: CR - KNEE 3 VIEWS LT 2017-06-27 16:30 FINDINGS: Limitations: Streak artifact - mild. Bones/joints: S/P knee arthroplasty with cemented femoral and cemented tibial components. Mildly displaced fracture posterolateral aspect proximal tibia extending from mid diaphysis to level of prosthesis. Posterior dislocation of tibia with respect to femur with rotation. Several foci of air within cement along femoral and tibial components. Soft tissues: Soft tissue swelling/stranding about knee. Curvilinear fluid collection along anterior aspect of knee, roughly 10.0 x 2.5 x 18.0 cm, incompletely imaged. Several small calcifications and/or cement within the anterior soft tissues. Vascular calcifications. Skin martir. IMPRESSION: 1. Fracture/dislocation as above. 2. Soft tissue collection. DDX: Seroma, hematoma, abscess. Clinical correlation is needed.
[2017-06-27] MEDS: Cefepime 1 GM in Sodium Chloride 0.9% 100 ML IVPB SCH (22:31)
[2017-06-28 07:24] LABS: BASO % 0.5 % (0.0-2.0); EOS # 0.1 K/uL (0.0-0.7); EOS % 1.4 % (0.0-4.0); HEMOGLOBIN 10.1 g/dL (12.0-18.0); INR 1.4 (0.9-1.2); LYMPH # 1.4 K/uL (1.0-4.3); LYMPH % 18.7 % (20.0-40.0); MEAN CELL VOLUME 88.6 fl (80.0-94.0); MEAN CORPUSCULAR HEMOGLOBIN 30.2 pg (27.0-31.0); MEAN CORPUSCULAR HGB CONC 34.1 g/dL (33.0-37.0); MONO # 0.8 K/uL (0.0-0.8); MONO % 10.9 % (0.0-10.0); NEUT % 68.5 % (50.0-75.0); NRBC % 0.1 % (0.0-0.0); PROTHROMBIN TIME 15.5 Seconds (9.8-13.1); RBC 3.35 Mil/uL (4.40-5.90); RED CELL DISTRIBUTION WIDTH 16.2 % (11.5-14.5); WHITE BLOOD COUNT 7.4 K/uL (4.8-10.8)
[2017-06-28 07:25] LABS: BLOOD UREA NITROGEN 17 mg/dl (9-20); CALCIUM 8.1 mg/dL (8.4-10.2); GFR AFRICAN-AMERICAN > 60; GFR NON-AFRICAN AMERICAN > 60
[2017-06-28] MEDS: Cefepime 1 GM in Sodium Chloride 0.9% 100 ML IVPB SCH ×2 (08:13→21:36)
[2017-06-28] MEDS: Cholecalciferol 1,000 INTLU TAB PO SCH (08:14)
[2017-06-28] MEDS: Multivitamin With Minerals Tab PO SCH (08:14)
[2017-06-28] MEDS: Enoxaparin 40 mg Syringe SC SCH (08:14)
[2017-06-28] MEDS: Lactobacillus Acidophilus 500 MU Cap PO SCH ×2 (08:19→17:31)
--- NOTE | 2017-06-28 11:11 | CP.PCM.CON ---
History of Present Illness - History of Present Illness History of Present Illness: ID: 82 yo male well known to my practice CC:Emergency admit from nursing facitlity with dislocated knee spacer(s/p explant for sepsis) HPI: 82 yo male s/p successful explant and insertion of abio spacer for spsis several wks ago Pt very diffciult to magae at [facility] facility. Apparently has also had a change in mental status. Daughter Aurora present at encounter in my ofc yesterday, notes pt was improperly magaged by insuffcieint rehab styaff; dropped knee and pt screamed with pain several days ago. I was not contacted by rehab facility. PT seen in my ofc yesterday with obvious gross knee deformity. Pt also evdienced a change in mental stattus. When pt d/jacquelin from [facility], spaver was in excellent position nad post op xray was satisfactory. No eveidece for deformity prior to d/c Thus dislocation occurred in nursing rehab facuility Review of Systems - Review of Systems Systems not reviewed;Unavailable: Altered Mental Status Past Patient History - Tetanus Immunizations Tetanus Immunization: Unknown - Past Medical History & Family History Past Medical History?: Yes - Past Social History Smoking Status: Never Smoked - CARDIAC Hx Cardiac Disorders: Yes Hx Hypertension: Yes - PULMONARY Hx Respiratory Disorders: Yes Hx Chronic Obstructive Pulmonary Disease (COPD): Yes - NEUROLOGICAL Hx Neurological Disorder: Yes Hx Dementia: Yes - HEENT Hx HEENT Problems: Yes Hx Cataracts: Yes - RENAL Hx Chronic Kidney Disease: No - ENDOCRINE/METABOLIC Hx Endocrine Disorders: No - HEMATOLOGICAL/ONCOLOGICAL Hx AIDS: No Hx Anemia: Yes Hx Blood Transfusions: Yes Hx Blood Transfusion Reaction: No Hx Human Immunodeficiency Virus (HIV): No - INTEGUMENTARY Hx Dermatological Problems: No - MUSCULOSKELETAL/RHEUMATOLOGICAL Hx Musculoskeletal Disorders: Yes Hx Arthritis: Yes Hx Falls: Yes - GASTROINTESTINAL Hx Gastrointestinal Disorders: Yes - GENITOURINARY/GYNECOLOGICAL Hx Genitourinary Disorders: No - PSYCHIATRIC Hx Psychophysiologic Disorder: Yes Hx Anxiety: Yes Hx Substance Use: No - SURGICAL HISTORY Hx Surgeries: Yes Hx Herniorrhaphy: Yes Hx Orthopedic Surgery: Yes Hx Tonsillectomy: Yes (O.U) - ANESTHESIA Hx Anesthesia: Yes Hx Anesthesia Reactions: No Hx Malignant Hyperthermia: No Has any member of the family had a problem w/ anesthesia?: No Meds Allergies/Adverse Reactions: Allergies Allergy/AdvReac Type Severity Reaction Status Date / Time acetaminophen [From Percocet] Allergy ITCHING Verified 04/09/17 06:41 celecoxib [From Celebrex] Allergy ITCHING Verified 04/07/17 06:23 oxycodone [From Percocet] Allergy ITCHING Verified 04/09/17 06:41 - Medications Medications: Current Medications Acetaminophen (Tylenol 325mg Tab) 650 mg PO Q6 PRN PRN Reason: Temp >101 Alprazolam (Xanax) 0.25 mg PO Q12 [facility] Stop: 07/04/17 21:01 Last Admin: 06/28/17 09:52 Dose: Not Given Artificial Tears (Artificial Tears) 2 drop OU Q4H PRN PRN Reason: Dry eyes Ascorbic Acid (Vitamin C 500 Mg Tab) 500 mg PO DAILY [facility] Last Admin: 06/28/17 08:14 Dose: 500 mg Cholecalciferol (Vitamin D) 1,000 intlu PO DAILY [facility] Last Admin: 06/28/17 08:14 Dose: 1,000 intlu Enoxaparin Sodium (Lovenox) 40 mg SC DAILY [facility] PRN Reason: Protocol Last Admin: 06/28/17 08:14 Dose: 40 mg Sodium Chloride (Sodium Chloride 0.9%) 500 mls @ 500 mls/hr IV .Q1H [facility] Last Admin: 06/27/17 17:14 Dose: 500 mls/hr Cefepime HCl 1 gm/ Sodium (Chloride) 100 mls @ 100 mls/hr IVPB Q12 [facility] PRN Reason: Protocol Last Admin: 06/28/17 08:13 Dose: 100 mls/hr Vancomycin HCl 1 gm/ Sodium (Chloride) 250 mls @ 166.667 mls/hr IVPB Q12 [facility] PRN Reason: Protocol Last Admin: 06/27/17 23:36 Dose: 166.667 mls/hr Lactobacillus Acidophilus (Bacid Acidophilus) 1 cap PO BID [facility] Last Admin: 06/28/17 08:19 Dose: 1 cap Magnesium Hydroxide (Milk Of Magnesia) 30 ml PO DAILY PRN PRN Reason: Constipation Mirtazapine (Remeron) 7.5 mg PO HS [facility] Last Admin: 06/27/17 22:31 Dose: 7.5 mg Multivitamins/Minerals (Therapeutic-M Tab) 1 tab PO DAILY [facility] Last Admin: 06/28/17 08:14 Dose: 1 tab Tamsulosin HCl (Flomax) 0.4 mg PO DAILY [facility] Last Admin: 06/28/17 08:14 Dose: 0.4 mg Tramadol HCl (Ultram) 50 mg PO Q6 PRN PRN Reason: Pain, moderate (4-7) Last Admin: 06/28/17 08:19 Dose: 50 mg Physical Exam - Additional Findings Additional findings: Systemic exam constituional- pt notes "this is not a hospital"- disoriented, evdiencing waxing and waning of orientation remainder of systemic exam- pt is clinically dehydrated, and agiatetd at time iof eval Musculoskekltal stance/gait- defrred knee immobilizer intact wound benign no sepsis/drainage N/V intact] remainder of sytemic exam as per medical consultants Results - Vital Signs Recent Vital Signs: Last Vital Signs Temp 98.1 F 06/28/17 07:26 Pulse 90 06/28/17 07:26 Resp 20 06/28/17 07:26 BP 124/71 06/28/17 07:26 Pulse Ox 99 06/28/17 07:26 - Labs Result Diagrams: 06/28/17 05:30 06/28/17 05:30 Labs: Laboratory Results - last 24 hr 06/27/17 06/27/17 06/27/17 16:45 17:03 17:03 WBC 6.9 RBC 3.30 L Hgb 9.8 L Hct 29.4 L MCV 89.0 MCH 29.7 MCHC 33.3 RDW 16.0 H Plt Count 131 MPV 8.0 Neut % (Auto) 61.1 Lymph % (Auto) 23.6 [place] % (Auto) 11.0 H Eos % (Auto) 1.0 Baso % (Auto) 3.3 H Neut # (Auto) 4.2 Lymph # (Auto) 1.6 [place] # (Auto) 0.8 Eos # (Auto) 0.1 Baso # (Auto) 0.2 Neutrophils % (Manual) 54 Lymphocytes % (Manual) 17 L Reactive Lymphs % 18 H Monocytes % (Manual) 10 Eosinophils % (Manual) 1 Smudge Cells Present Platelet Estimate Normal Hypochromasia (manual) Slight Poikilocytosis (manual Slight Anisocytosis (manual) Slight Macrocytosis (manual) Slight Stomatocytes Slight PT INR APTT pO2 VBG pH VBG pCO2 VBG HCO3 VBG Total CO2 VBG O2 Sat (Calc) VBG Base Excess VBG Potassium Glucose Lactate FiO2 Sodium 137 Potassium 3.9 Chloride 101 Carbon Dioxide 31 H Anion Gap 9 L BUN 19 Creatinine 0.5 L Est GFR ( Amer) > 60 Est GFR (Non-Af Amer) > 60 Random Glucose 108 Calcium 8.3 L Phosphorus 3.2 Magnesium 2.1 Total Bilirubin 0.5 AST 27 ALT 20 L Alkaline Phosphatase 69 Troponin I < 0.0120 NT-Pro-B Natriuret Pep 758 Total Protein 6.6 Albumin 2.6 L Globulin 4.0 H Albumin/Globulin Ratio 0.7 L Venous Blood Potassium Urine Color Yellow Urine Clarity Slighty-cloudy Urine pH 6.0 Ur Specific [place] 1.021 Urine Protein 30 Urine Glucose (UA) Neg Urine Ketones Trace Urine Blood Negative Urine Nitrate Negative Urine Bilirubin Negative Urine Urobilinogen 0.2-1.0 Ur Leukocyte Esterase Neg Urine RBC (Auto) 4 H Urine Microscopic WBC 4 Ur Squamous Epith Cells < 1 Calcium Oxalate Crystal Mod H Granular Casts (Auto) 1 Vancomycin Trough Blood Type Antibody Screen BBK History Checked 06/27/17 06/27/17 06/27/17 17:03 17:15 17:43 WBC RBC Hgb Hct MCV MCH MCHC RDW Plt Count MPV Neut % (Auto) Lymph % (Auto) [place] % (Auto) Eos % (Auto) Baso % (Auto) Neut # (Auto) Lymph # (Auto) [place] # (Auto) Eos # (Auto) Baso # (Auto) Neutrophils % (Manual) Lymphocytes % (Manual) Reactive Lymphs % Monocytes % (Manual) Eosinophils % (Manual) Smudge Cells Platelet Estimate Hypochromasia (manual) Poikilocytosis (manual Anisocytosis (manual) Macrocytosis (manual) Stomatocytes PT 16.7 H INR 1.5 H APTT 45.3 H pO2 50 46 VBG pH 7.44 H 7.43 VBG pCO2 49 47 VBG HCO3 30.7 29.1 VBG Total CO2 32.6 H VBG O2 Sat (Calc) 91.5 H 88.6 H VBG Base Excess 7.8 H 5.8 H VBG Potassium 3.8 Glucose 123 H Lactate 1.5 FiO2 21.0 Sodium 135.0 Potassium Chloride 105.0 Carbon Dioxide Anion Gap BUN Creatinine Est GFR ( Amer) Est GFR (Non-Af Amer) Random Glucose Calcium Phosphorus Magnesium Total Bilirubin AST ALT Alkaline Phosphatase Troponin I NT-Pro-B Natriuret Pep Total Protein Albumin Globulin Albumin/Globulin Ratio Venous Blood Potassium 3.8 Urine Color Urine Clarity Urine pH Ur Specific [place] Urine Protein Urine Glucose (UA) Urine Ketones Urine Blood Urine Nitrate Urine Bilirubin Urine Urobilinogen Ur Leukocyte Esterase Urine RBC (Auto) Urine Microscopic WBC Ur Squamous Epith Cells Calcium Oxalate Crystal Granular Casts (Auto) Vancomycin Trough Blood Type Antibody Screen BBK History Checked 06/27/17 06/27/17 06/28/17 17:44 19:36 05:30 WBC 7.4 RBC 3.35 L Hgb 10.1 L Hct 29.7 L MCV 88.6 MCH 30.2 MCHC 34.1 RDW 16.2 H Plt Count 137 MPV 8.0 Neut % (Auto) 68.5 Lymph % (Auto) 18.7 L [place] % (Auto) 10.9 H Eos % (Auto) 1.4 Baso % (Auto) 0.5 Neut # (Auto) 5.0 Lymph # (Auto) 1.4 [place] # (Auto) 0.8 Eos # (Auto) 0.1 Baso # (Auto) 0.0 Neutrophils % (Manual) Lymphocytes % (Manual) Reactive Lymphs % Monocytes % (Manual) Eosinophils % (Manual) Smudge Cells Platelet Estimate Hypochromasia (manual) Poikilocytosis (manual Anisocytosis (manual) Macrocytosis (manual) Stomatocytes PT INR APTT 44.6 H pO2 VBG pH VBG pCO2 VBG HCO3 VBG Total CO2 VBG O2 Sat (Calc) VBG Base Excess VBG Potassium Glucose Lactate FiO2 Sodium Potassium Chloride Carbon Dioxide Anion Gap BUN Creatinine Est GFR ( Amer) Est GFR (Non-Af Amer) Random Glucose Calcium Phosphorus Magnesium Total Bilirubin AST ALT Alkaline Phosphatase Troponin I NT-Pro-B Natriuret Pep Total Protein Albumin Globulin Albumin/Globulin Ratio Venous Blood Potassium Urine Color Urine Clarity Urine pH Ur Specific [place] Urine Protein Urine Glucose (UA) Urine Ketones Urine Blood Urine Nitrate Urine Bilirubin Urine Urobilinogen Ur Leukocyte Esterase Urine RBC (Auto) Urine Microscopic WBC Ur Squamous Epith Cells Calcium Oxalate Crystal Granular Casts (Auto) Vancomycin Trough Blood Type O POSITIVE Antibody Screen Negative BBK History Checked Patient has bt 06/28/17 06/28/17 06/28/17 05:30 05:30 08:18 WBC RBC Hgb Hct MCV MCH MCHC RDW Plt Count MPV Neut % (Auto) Lymph % (Auto) [place] % (Auto) Eos % (Auto) Baso % (Auto) Neut # (Auto) Lymph # (Auto) [place] # (Auto) Eos # (Auto) Baso # (Auto) Neutrophils % (Manual) Lymphocytes % (Manual) Reactive Lymphs % Monocytes % (Manual) Eosinophils % (Manual) Smudge Cells Platelet Estimate Hypochromasia (manual) Poikilocytosis (manual Anisocytosis (manual) Macrocytosis (manual) Stomatocytes PT 15.5 H INR 1.4 H APTT pO2 VBG pH VBG pCO2 VBG HCO3 VBG Total CO2 VBG O2 Sat (Calc) VBG Base Excess VBG Potassium Glucose Lactate FiO2 Sodium 137 Potassium 4.0 Chloride 102 Carbon Dioxide 29 Anion Gap 10 BUN 17 Creatinine 0.5 L Est GFR ( Amer) > 60 Est GFR (Non-Af Amer) > 60 Random Glucose 111 H Calcium 8.1 L Phosphorus Magnesium Total Bilirubin AST ALT Alkaline Phosphatase Troponin I NT-Pro-B Natriuret Pep Total Protein Albumin Globulin Albumin/Globulin Ratio Venous Blood Potassium Urine Color Urine Clarity Urine pH Ur Specific [place] Urine Protein Urine Glucose (UA) Urine Ketones Urine Blood Urine Nitrate Urine Bilirubin Urine Urobilinogen Ur Leukocyte Esterase Urine RBC (Auto) Urine Microscopic WBC Ur Squamous Epith Cells Calcium Oxalate Crystal Granular Casts (Auto) Vancomycin Trough 15.0 H Blood Type Antibody Screen BBK History Checked - Impressions Impression: Imaging Xray- dislocated knee spacer (tiba Posterior) CT- confirmatory Assessment & Plan - Assessment and Plan (Free Text) Assessment: A- s/p dislocated knee spacer at rehab P- oprthopedically - to OR for closed reduction/possible open redcuution WHEN MEDICALLY STABLE pT IS IN EXTREMELY POOR, DISORIENET HABITUS AT TIME OF ENCOUNTER [id number] CARDIO/PULMONARY/NEURO CONSULT WELL ID
--- NOTE | 2017-06-28 14:04 | CP.PCM.CON ---
History of Present Illness - History of Present Illness History of Present Illness: Asked to see this 82 y7ear old Estonian speaking male because of a possible right upper lobe infiltrate. He presented to the emergency room because of a complicated orthopedic problem with his left knee, having a displaced spacer that was implanted here last month. There has been some cough on and off at the rehab facility and a chest x-ray was requested. The film is rotated, but there is question of a right apical density. There are no prior chest x-rays for comparison. He has no leukocytosis or febrile pattern. During the exam there was no coughing, and he does not appear to have any respiratory distress. He is confused and vocalizing loudly without any difficulty. There is a past history of 'bronchitis' and possibly pneumonia, and he also has had DVT in the recent past, currently taking Eliquis. Past Patient History - Tetanus Immunizations Tetanus Immunization: Unknown - Past Medical History & Family History Past Medical History?: Yes - Past Social History Smoking Status: Never Smoked Chewing Tobacco Use: No Cigar Use: No Alcohol: Social Drugs: Denies - CARDIAC Hx Hypertension: Yes - PULMONARY Hx Bronchitis: Yes - NEUROLOGICAL Hx Dementia: Yes - HEENT Hx Cataracts: Yes - RENAL Hx Chronic Kidney Disease: No - ENDOCRINE/METABOLIC Hx Endocrine Disorders: No - HEMATOLOGICAL/ONCOLOGICAL Hx Anemia: Yes Hx Blood Transfusions: Yes Hx Blood Transfusion Reaction: No Hx Human Immunodeficiency Virus (HIV): No Other/Comment: DVT - INTEGUMENTARY Hx Dermatological Problems: No - MUSCULOSKELETAL/RHEUMATOLOGICAL Hx Arthritis: Yes Hx Falls: Yes - GENITOURINARY/GYNECOLOGICAL Hx Genitourinary Disorders: No Hx Prostate Problems: Yes - PSYCHIATRIC Hx Anxiety: Yes Hx Substance Use: No - SURGICAL HISTORY Hx Surgeries: Yes Hx Cataract Extraction: Yes Hx Herniorrhaphy: Yes Hx Orthopedic Surgery: Yes (L knee) Hx Tonsillectomy: Yes - ANESTHESIA Hx Anesthesia: Yes Hx Anesthesia Reactions: No Hx Malignant Hyperthermia: No Has any member of the family had a problem w/ anesthesia?: No Meds Allergies/Adverse Reactions: Allergies Allergy/AdvReac Type Severity Reaction Status Date / Time acetaminophen [From Percocet] Allergy ITCHING Verified 04/09/17 06:41 celecoxib [From Celebrex] Allergy ITCHING Verified 04/07/17 06:23 oxycodone [From Percocet] Allergy ITCHING Verified 04/09/17 06:41 - Medications Medications: Current Medications Acetaminophen (Tylenol 325mg Tab) 650 mg PO Q6 PRN PRN Reason: Temp >101 Alprazolam (Xanax) 0.25 mg PO Q12 [facility] Stop: 07/04/17 21:01 Last Admin: 06/28/17 09:52 Dose: Not Given Artificial Tears (Artificial Tears) 2 drop OU Q4H PRN PRN Reason: Dry eyes Ascorbic Acid (Vitamin C 500 Mg Tab) 500 mg PO DAILY [facility] Last Admin: 06/28/17 08:14 Dose: 500 mg Cholecalciferol (Vitamin D) 1,000 intlu PO DAILY [facility] Last Admin: 06/28/17 08:14 Dose: 1,000 intlu Enoxaparin Sodium (Lovenox) 40 mg SC DAILY [facility] PRN Reason: Protocol Last Admin: 06/28/17 08:14 Dose: 40 mg Haloperidol Lactate (Haldol) 1 mg IM Q6H PRN PRN Reason: Agitation Sodium Chloride (Sodium Chloride 0.9%) 500 mls @ 500 mls/hr IV .Q1H [facility] Last Admin: 06/27/17 17:14 Dose: 500 mls/hr Cefepime HCl 1 gm/ Sodium (Chloride) 100 mls @ 100 mls/hr IVPB Q12 [facility] PRN Reason: Protocol Last Admin: 06/28/17 08:13 Dose: 100 mls/hr Vancomycin HCl 1 gm/ Sodium (Chloride) 250 mls @ 166.667 mls/hr IVPB Q12 [facility] PRN Reason: Protocol Last Admin: 06/28/17 11:14 Dose: 166.667 mls/hr Lactobacillus Acidophilus (Bacid Acidophilus) 1 cap PO BID [facility] Last Admin: 06/28/17 08:19 Dose: 1 cap Magnesium Hydroxide (Milk Of Magnesia) 30 ml PO DAILY PRN PRN Reason: Constipation Mirtazapine (Remeron) 7.5 mg PO HS [facility] Last Admin: 06/27/17 22:31 Dose: 7.5 mg Multivitamins/Minerals (Therapeutic-M Tab) 1 tab PO DAILY [facility] Last Admin: 06/28/17 08:14 Dose: 1 tab Tamsulosin HCl (Flomax) 0.4 mg PO DAILY [facility] Last Admin: 06/28/17 08:14 Dose: 0.4 mg Tramadol HCl (Ultram) 50 mg PO Q6 PRN PRN Reason: Pain, moderate (4-7) Last Admin: 06/28/17 08:19 Dose: 50 mg Physical Exam - Additional Findings Additional findings: He is not very compliant with following commands, but on exam there is no dullness on chest percussion. The breath sounds are diminished equally. No rales are heard in the right upper lobe region and there are no wheezes. No bronchial breath sounds are heard. Occasional sonorous rhonchi are heard in the dependant areas of both lungs. The neck is supple and trachea is midline. There is no dependant edema, no cyanosis. Results - Vital Signs Recent Vital Signs: Last Vital Signs Temp 98.1 F 06/28/17 07:26 Pulse 90 06/28/17 07:26 Resp 20 06/28/17 07:26 BP 124/71 06/28/17 07:26 Pulse Ox 99 06/28/17 07:26 - Labs Result Diagrams: 06/28/17 05:30 06/28/17 05:30 Labs: Laboratory Results - last 24 hr 06/27/17 06/27/17 06/27/17 16:45 17:03 17:03 WBC 6.9 RBC 3.30 L Hgb 9.8 L Hct 29.4 L MCV 89.0 MCH 29.7 MCHC 33.3 RDW 16.0 H Plt Count 131 MPV 8.0 Neut % (Auto) 61.1 Lymph % (Auto) 23.6 [place] % (Auto) 11.0 H Eos % (Auto) 1.0 Baso % (Auto) 3.3 H Neut # (Auto) 4.2 Lymph # (Auto) 1.6 [place] # (Auto) 0.8 Eos # (Auto) 0.1 Baso # (Auto) 0.2 Neutrophils % (Manual) 54 Lymphocytes % (Manual) 17 L Reactive Lymphs % 18 H Monocytes % (Manual) 10 Eosinophils % (Manual) 1 Smudge Cells Present Platelet Estimate Normal Hypochromasia (manual) Slight Poikilocytosis (manual Slight Anisocytosis (manual) Slight Macrocytosis (manual) Slight Stomatocytes Slight PT INR APTT pO2 VBG pH VBG pCO2 VBG HCO3 VBG Total CO2 VBG O2 Sat (Calc) VBG Base Excess VBG Potassium Glucose Lactate FiO2 Sodium 137 Potassium 3.9 Chloride 101 Carbon Dioxide 31 H Anion Gap 9 L BUN 19 Creatinine 0.5 L Est GFR ( Amer) > 60 Est GFR (Non-Af Amer) > 60 Random Glucose 108 Calcium 8.3 L Phosphorus 3.2 Magnesium 2.1 Total Bilirubin 0.5 AST 27 ALT 20 L Alkaline Phosphatase 69 Troponin I < 0.0120 NT-Pro-B Natriuret Pep 758 Total Protein 6.6 Albumin 2.6 L Globulin 4.0 H Albumin/Globulin Ratio 0.7 L Venous Blood Potassium Urine Color Yellow Urine Clarity Slighty-cloudy Urine pH 6.0 Ur Specific [place] 1.021 Urine Protein 30 Urine Glucose (UA) Neg Urine Ketones Trace Urine Blood Negative Urine Nitrate Negative Urine Bilirubin Negative Urine Urobilinogen 0.2-1.0 Ur Leukocyte Esterase Neg Urine RBC (Auto) 4 H Urine Microscopic WBC 4 Ur Squamous Epith Cells < 1 Calcium Oxalate Crystal Mod H Granular Casts (Auto) 1 Vancomycin Trough Blood Type Antibody Screen BBK History Checked 06/27/17 06/27/17 06/27/17 17:03 17:15 17:43 WBC RBC Hgb Hct MCV MCH MCHC RDW Plt Count MPV Neut % (Auto) Lymph % (Auto) [place] % (Auto) Eos % (Auto) Baso % (Auto) Neut # (Auto) Lymph # (Auto) [place] # (Auto) Eos # (Auto) Baso # (Auto) Neutrophils % (Manual) Lymphocytes % (Manual) Reactive Lymphs % Monocytes % (Manual) Eosinophils % (Manual) Smudge Cells Platelet Estimate Hypochromasia (manual) Poikilocytosis (manual Anisocytosis (manual) Macrocytosis (manual) Stomatocytes PT 16.7 H INR 1.5 H APTT 45.3 H pO2 50 46 VBG pH 7.44 H 7.43 VBG pCO2 49 47 VBG HCO3 30.7 29.1 VBG Total CO2 32.6 H VBG O2 Sat (Calc) 91.5 H 88.6 H VBG Base Excess 7.8 H 5.8 H VBG Potassium 3.8 Glucose 123 H Lactate 1.5 FiO2 21.0 Sodium 135.0 Potassium Chloride 105.0 Carbon Dioxide Anion Gap BUN Creatinine Est GFR ( Amer) Est GFR (Non-Af Amer) Random Glucose Calcium Phosphorus Magnesium Total Bilirubin AST ALT Alkaline Phosphatase Troponin I NT-Pro-B Natriuret Pep Total Protein Albumin Globulin Albumin/Globulin Ratio Venous Blood Potassium 3.8 Urine Color Urine Clarity Urine pH Ur Specific [place] Urine Protein Urine Glucose (UA) Urine Ketones Urine Blood Urine Nitrate Urine Bilirubin Urine Urobilinogen Ur Leukocyte Esterase Urine RBC (Auto) Urine Microscopic WBC Ur Squamous Epith Cells Calcium Oxalate Crystal Granular Casts (Auto) Vancomycin Trough Blood Type Antibody Screen BBK History Checked 06/27/17 06/27/17 06/28/17 17:44 19:36 05:30 WBC 7.4 RBC 3.35 L Hgb 10.1 L Hct 29.7 L MCV 88.6 MCH 30.2 MCHC 34.1 RDW 16.2 H Plt Count 137 MPV 8.0 Neut % (Auto) 68.5 Lymph % (Auto) 18.7 L [place] % (Auto) 10.9 H Eos % (Auto) 1.4 Baso % (Auto) 0.5 Neut # (Auto) 5.0 Lymph # (Auto) 1.4 [place] # (Auto) 0.8 Eos # (Auto) 0.1 Baso # (Auto) 0.0 Neutrophils % (Manual) Lymphocytes % (Manual) Reactive Lymphs % Monocytes % (Manual) Eosinophils % (Manual) Smudge Cells Platelet Estimate Hypochromasia (manual) Poikilocytosis (manual Anisocytosis (manual) Macrocytosis (manual) Stomatocytes PT INR APTT 44.6 H pO2 VBG pH VBG pCO2 VBG HCO3 VBG Total CO2 VBG O2 Sat (Calc) VBG Base Excess VBG Potassium Glucose Lactate FiO2 Sodium Potassium Chloride Carbon Dioxide Anion Gap BUN Creatinine Est GFR ( Amer) Est GFR (Non-Af Amer) Random Glucose Calcium Phosphorus Magnesium Total Bilirubin AST ALT Alkaline Phosphatase Troponin I NT-Pro-B Natriuret Pep Total Protein Albumin Globulin Albumin/Globulin Ratio Venous Blood Potassium Urine Color Urine Clarity Urine pH Ur Specific [place] Urine Protein Urine Glucose (UA) Urine Ketones Urine Blood Urine Nitrate Urine Bilirubin Urine Urobilinogen Ur Leukocyte Esterase Urine RBC (Auto) Urine Microscopic WBC Ur Squamous Epith Cells Calcium Oxalate Crystal Granular Casts (Auto) Vancomycin Trough Blood Type O POSITIVE Antibody Screen Negative BBK History Checked Patient has bt 06/28/17 06/28/17 06/28/17 05:30 05:30 08:18 WBC RBC Hgb Hct MCV MCH MCHC RDW Plt Count MPV Neut % (Auto) Lymph % (Auto) [place] % (Auto) Eos % (Auto) Baso % (Auto) Neut # (Auto) Lymph # (Auto) [place] # (Auto) Eos # (Auto) Baso # (Auto) Neutrophils % (Manual) Lymphocytes % (Manual) Reactive Lymphs % Monocytes % (Manual) Eosinophils % (Manual) Smudge Cells Platelet Estimate Hypochromasia (manual) Poikilocytosis (manual Anisocytosis (manual) Macrocytosis (manual) Stomatocytes PT 15.5 H INR 1.4 H APTT pO2 VBG pH VBG pCO2 VBG HCO3 VBG Total CO2 VBG O2 Sat (Calc) VBG Base Excess VBG Potassium Glucose Lactate FiO2 Sodium 137 Potassium 4.0 Chloride 102 Carbon Dioxide 29 Anion Gap 10 BUN 17 Creatinine 0.5 L Est GFR ( Amer) > 60 Est GFR (Non-Af Amer) > 60 Random Glucose 111 H Calcium 8.1 L Phosphorus Magnesium Total Bilirubin AST ALT Alkaline Phosphatase Troponin I NT-Pro-B Natriuret Pep Total Protein Albumin Globulin Albumin/Globulin Ratio Venous Blood Potassium Urine Color Urine Clarity Urine pH Ur Specific [place] Urine Protein Urine Glucose (UA) Urine Ketones Urine Blood Urine Nitrate Urine Bilirubin Urine Urobilinogen Ur Leukocyte Esterase Urine RBC (Auto) Urine Microscopic WBC Ur Squamous Epith Cells Calcium Oxalate Crystal Granular Casts (Auto) Vancomycin Trough 15.0 H Blood Type Antibody Screen BBK History Checked Assessment & Plan (1) Pulmonary infiltrate in right lung on chest x-ray Status: Suspected Priority: High Comment: Will need a non-contrast CT chest to definitely visualize the right upper lobe clearly.
--- NOTE | 2017-06-28 15:07 | CP.PCM.CON ---
History of Present Illness - History of Present Illness History of Present Illness: Mr. Long is an 82-year-old pleasant gentleman with a past medical history of hypertension, BPH, who had a dislocated left knee, required knee spacer (s/p explant for sepsis), and was at the rehab/senior living, and had a fall with subsequent injury/deformity to the knee. He has been having episodes of acute delirium, confusion, agitation, paranoia requiring treatment with benzodiazepines and atypical antipsychotics. He was started on Remeron. At home, the patient does not have any baseline encephalopathy, dementia or confusion. In his usual environment, he is essentially normal and performs his ADLs. However, since his injury, he has not been able to eat his normal foods, enjoy his normal activities and have a stable sleep cycle. The patient was speaking in Faroese to me the majority of the time, but spoke Croatian briefly to incorrectly tell me the year and who the president of the [employer] is. He was not oriented to place and did not know how long he had been there. Review of Systems - Review of Systems All systems: reviewed and no additional remarkable complaints except Past Patient History - Tetanus Immunizations Tetanus Immunization: Unknown - Past Medical History & Family History Past Medical History?: Yes - Past Social History Smoking Status: Never Smoked Chewing Tobacco Use: No Cigar Use: No Alcohol: Social Drugs: Denies - CARDIAC Hx Hypertension: Yes - PULMONARY Hx Bronchitis: Yes - NEUROLOGICAL Hx Dementia: Yes - HEENT Hx Cataracts: Yes - RENAL Hx Chronic Kidney Disease: No - ENDOCRINE/METABOLIC Hx Endocrine Disorders: No - HEMATOLOGICAL/ONCOLOGICAL Hx Anemia: Yes Hx Blood Transfusions: Yes Hx Blood Transfusion Reaction: No Hx Human Immunodeficiency Virus (HIV): No Other/Comment: DVT - INTEGUMENTARY Hx Dermatological Problems: No - MUSCULOSKELETAL/RHEUMATOLOGICAL Hx Arthritis: Yes Hx Falls: Yes - GASTROINTESTINAL Hx Gastrointestinal Disorders: Yes - GENITOURINARY/GYNECOLOGICAL Hx Genitourinary Disorders: No Hx Prostate Problems: Yes - PSYCHIATRIC Hx Anxiety: Yes Hx Substance Use: No - SURGICAL HISTORY Hx Surgeries: Yes Hx Cataract Extraction: Yes Hx Herniorrhaphy: Yes Hx Orthopedic Surgery: Yes (L knee) Hx Tonsillectomy: Yes - ANESTHESIA Hx Anesthesia: Yes Hx Anesthesia Reactions: No Hx Malignant Hyperthermia: No Has any member of the family had a problem w/ anesthesia?: No Meds Allergies/Adverse Reactions: Allergies Allergy/AdvReac Type Severity Reaction Status Date / Time acetaminophen [From Percocet] Allergy ITCHING Verified 04/09/17 06:41 celecoxib [From Celebrex] Allergy ITCHING Verified 04/07/17 06:23 oxycodone [From Percocet] Allergy ITCHING Verified 04/09/17 06:41 - Medications Medications: Current Medications Acetaminophen (Tylenol 325mg Tab) 650 mg PO Q6 PRN PRN Reason: Temp >101 Alprazolam (Xanax) 0.25 mg PO Q12 [facility] Stop: 07/04/17 21:01 Last Admin: 06/28/17 14:26 Dose: 0.25 mg Artificial Tears (Artificial Tears) 2 drop OU Q4H PRN PRN Reason: Dry eyes Ascorbic Acid (Vitamin C 500 Mg Tab) 500 mg PO DAILY [facility] Last Admin: 06/28/17 08:14 Dose: 500 mg Cholecalciferol (Vitamin D) 1,000 intlu PO DAILY [facility] Last Admin: 06/28/17 08:14 Dose: 1,000 intlu Enoxaparin Sodium (Lovenox) 40 mg SC DAILY [facility] PRN Reason: Protocol Last Admin: 06/28/17 08:14 Dose: 40 mg Haloperidol Lactate (Haldol) 1 mg IM Q6H PRN PRN Reason: Agitation Sodium Chloride (Sodium Chloride 0.9%) 500 mls @ 500 mls/hr IV .Q1H [facility] Last Admin: 06/27/17 17:14 Dose: 500 mls/hr Cefepime HCl 1 gm/ Sodium (Chloride) 100 mls @ 100 mls/hr IVPB Q12 [facility] PRN Reason: Protocol Last Admin: 06/28/17 08:13 Dose: 100 mls/hr Vancomycin HCl 1 gm/ Sodium (Chloride) 250 mls @ 166.667 mls/hr IVPB Q12 [facility] PRN Reason: Protocol Last Admin: 06/28/17 11:14 Dose: 166.667 mls/hr Lactobacillus Acidophilus (Bacid Acidophilus) 1 cap PO BID [facility] Last Admin: 06/28/17 08:19 Dose: 1 cap Magnesium Hydroxide (Milk Of Magnesia) 30 ml PO DAILY PRN PRN Reason: Constipation Mirtazapine (Remeron) 7.5 mg PO HS [facility] Last Admin: 06/27/17 22:31 Dose: 7.5 mg Multivitamins/Minerals (Therapeutic-M Tab) 1 tab PO DAILY [facility] Last Admin: 06/28/17 08:14 Dose: 1 tab Tamsulosin HCl (Flomax) 0.4 mg PO DAILY [facility] Last Admin: 06/28/17 08:14 Dose: 0.4 mg Tramadol HCl (Ultram) 50 mg PO Q6 PRN PRN Reason: Pain, moderate (4-7) Last Admin: 06/28/17 08:19 Dose: 50 mg Physical Exam - Neurological Exam Neurological exam: Altered, CN II-XII Intact, Reflexes Normal Additional comments: Not oriented to place or time, oriented only to person. Unable to complete attention tasks. Unable to test left leg, but there were no focal neurological deficits otherwise. Results - Vital Signs Recent Vital Signs: Last Vital Signs Temp 98.1 F 06/28/17 07:26 Pulse 90 06/28/17 07:26 Resp 20 06/28/17 07:26 BP 124/71 06/28/17 07:26 Pulse Ox 99 06/28/17 07:26 - Labs Result Diagrams: 06/28/17 05:30 06/28/17 05:30 Labs: Laboratory Results - last 24 hr 06/27/17 06/27/17 06/27/17 16:45 17:03 17:03 WBC 6.9 RBC 3.30 L Hgb 9.8 L Hct 29.4 L MCV 89.0 MCH 29.7 MCHC 33.3 RDW 16.0 H Plt Count 131 MPV 8.0 Neut % (Auto) 61.1 Lymph % (Auto) 23.6 [place] % (Auto) 11.0 H Eos % (Auto) 1.0 Baso % (Auto) 3.3 H Neut # (Auto) 4.2 Lymph # (Auto) 1.6 [place] # (Auto) 0.8 Eos # (Auto) 0.1 Baso # (Auto) 0.2 Neutrophils % (Manual) 54 Lymphocytes % (Manual) 17 L Reactive Lymphs % 18 H Monocytes % (Manual) 10 Eosinophils % (Manual) 1 Smudge Cells Present Platelet Estimate Normal Hypochromasia (manual) Slight Poikilocytosis (manual Slight Anisocytosis (manual) Slight Macrocytosis (manual) Slight Stomatocytes Slight PT INR APTT pO2 VBG pH VBG pCO2 VBG HCO3 VBG Total CO2 VBG O2 Sat (Calc) VBG Base Excess VBG Potassium Glucose Lactate FiO2 Sodium 137 Potassium 3.9 Chloride 101 Carbon Dioxide 31 H Anion Gap 9 L BUN 19 Creatinine 0.5 L Est GFR ( Amer) > 60 Est GFR (Non-Af Amer) > 60 Random Glucose 108 Calcium 8.3 L Phosphorus 3.2 Magnesium 2.1 Total Bilirubin 0.5 AST 27 ALT 20 L Alkaline Phosphatase 69 Troponin I < 0.0120 NT-Pro-B Natriuret Pep 758 Total Protein 6.6 Albumin 2.6 L Globulin 4.0 H Albumin/Globulin Ratio 0.7 L Venous Blood Potassium Urine Color Yellow Urine Clarity Slighty-cloudy Urine pH 6.0 Ur Specific [place] 1.021 Urine Protein 30 Urine Glucose (UA) Neg Urine Ketones Trace Urine Blood Negative Urine Nitrate Negative Urine Bilirubin Negative Urine Urobilinogen 0.2-1.0 Ur Leukocyte Esterase Neg Urine RBC (Auto) 4 H Urine Microscopic WBC 4 Ur Squamous Epith Cells < 1 Calcium Oxalate Crystal Mod H Granular Casts (Auto) 1 Vancomycin Trough Blood Type Antibody Screen BBK History Checked 06/27/17 06/27/17 06/27/17 17:03 17:15 17:43 WBC RBC Hgb Hct MCV MCH MCHC RDW Plt Count MPV Neut % (Auto) Lymph % (Auto) [place] % (Auto) Eos % (Auto) Baso % (Auto) Neut # (Auto) Lymph # (Auto) [place] # (Auto) Eos # (Auto) Baso # (Auto) Neutrophils % (Manual) Lymphocytes % (Manual) Reactive Lymphs % Monocytes % (Manual) Eosinophils % (Manual) Smudge Cells Platelet Estimate Hypochromasia (manual) Poikilocytosis (manual Anisocytosis (manual) Macrocytosis (manual) Stomatocytes PT 16.7 H INR 1.5 H APTT 45.3 H pO2 50 46 VBG pH 7.44 H 7.43 VBG pCO2 49 47 VBG HCO3 30.7 29.1 VBG Total CO2 32.6 H VBG O2 Sat (Calc) 91.5 H 88.6 H VBG Base Excess 7.8 H 5.8 H VBG Potassium 3.8 Glucose 123 H Lactate 1.5 FiO2 21.0 Sodium 135.0 Potassium Chloride 105.0 Carbon Dioxide Anion Gap BUN Creatinine Est GFR ( Amer) Est GFR (Non-Af Amer) Random Glucose Calcium Phosphorus Magnesium Total Bilirubin AST ALT Alkaline Phosphatase Troponin I NT-Pro-B Natriuret Pep Total Protein Albumin Globulin Albumin/Globulin Ratio Venous Blood Potassium 3.8 Urine Color Urine Clarity Urine pH Ur Specific [place] Urine Protein Urine Glucose (UA) Urine Ketones Urine Blood Urine Nitrate Urine Bilirubin Urine Urobilinogen Ur Leukocyte Esterase Urine RBC (Auto) Urine Microscopic WBC Ur Squamous Epith Cells Calcium Oxalate Crystal Granular Casts (Auto) Vancomycin Trough Blood Type Antibody Screen BBK History Checked 06/27/17 06/27/17 06/28/17 17:44 19:36 05:30 WBC 7.4 RBC 3.35 L Hgb 10.1 L Hct 29.7 L MCV 88.6 MCH 30.2 MCHC 34.1 RDW 16.2 H Plt Count 137 MPV 8.0 Neut % (Auto) 68.5 Lymph % (Auto) 18.7 L [place] % (Auto) 10.9 H Eos % (Auto) 1.4 Baso % (Auto) 0.5 Neut # (Auto) 5.0 Lymph # (Auto) 1.4 [place] # (Auto) 0.8 Eos # (Auto) 0.1 Baso # (Auto) 0.0 Neutrophils % (Manual) Lymphocytes % (Manual) Reactive Lymphs % Monocytes % (Manual) Eosinophils % (Manual) Smudge Cells Platelet Estimate Hypochromasia (manual) Poikilocytosis (manual Anisocytosis (manual) Macrocytosis (manual) Stomatocytes PT INR APTT 44.6 H pO2 VBG pH VBG pCO2 VBG HCO3 VBG Total CO2 VBG O2 Sat (Calc) VBG Base Excess VBG Potassium Glucose Lactate FiO2 Sodium Potassium Chloride Carbon Dioxide Anion Gap BUN Creatinine Est GFR ( Amer) Est GFR (Non-Af Amer) Random Glucose Calcium Phosphorus Magnesium Total Bilirubin AST ALT Alkaline Phosphatase Troponin I NT-Pro-B Natriuret Pep Total Protein Albumin Globulin Albumin/Globulin Ratio Venous Blood Potassium Urine Color Urine Clarity Urine pH Ur Specific [place] Urine Protein Urine Glucose (UA) Urine Ketones Urine Blood Urine Nitrate Urine Bilirubin Urine Urobilinogen Ur Leukocyte Esterase Urine RBC (Auto) Urine Microscopic WBC Ur Squamous Epith Cells Calcium Oxalate Crystal Granular Casts (Auto) Vancomycin Trough Blood Type O POSITIVE Antibody Screen Negative BBK History Checked Patient has bt 06/28/17 06/28/1718 05:30 05:30 08:18 WBC RBC Hgb Hct MCV MCH MCHC RDW Plt Count MPV Neut % (Auto) Lymph % (Auto) [place] % (Auto) Eos % (Auto) Baso % (Auto) Neut # (Auto) Lymph # (Auto) [place] # (Auto) Eos # (Auto) Baso # (Auto) Neutrophils % (Manual) Lymphocytes % (Manual) Reactive Lymphs % Monocytes % (Manual) Eosinophils % (Manual) Smudge Cells Platelet Estimate Hypochromasia (manual) Poikilocytosis (manual Anisocytosis (manual) Macrocytosis (manual) Stomatocytes PT 15.5 H INR 1.4 H APTT pO2 VBG pH VBG pCO2 VBG HCO3 VBG Total CO2 VBG O2 Sat (Calc) VBG Base Excess VBG Potassium Glucose Lactate FiO2 Sodium 137 Potassium 4.0 Chloride 102 Carbon Dioxide 29 Anion Gap 10 BUN 17 Creatinine 0.5 L Est GFR ( Amer) > 60 Est GFR (Non-Af Amer) > 60 Random Glucose 111 H Calcium 8.1 L Phosphorus Magnesium Total Bilirubin AST ALT Alkaline Phosphatase Troponin I NT-Pro-B Natriuret Pep Total Protein Albumin Globulin Albumin/Globulin Ratio Venous Blood Potassium Urine Color Urine Clarity Urine pH Ur Specific [place] Urine Protein Urine Glucose (UA) Urine Ketones Urine Blood Urine Nitrate Urine Bilirubin Urine Urobilinogen Ur Leukocyte Esterase Urine RBC (Auto) Urine Microscopic WBC Ur Squamous Epith Cells Calcium Oxalate Crystal Granular Casts (Auto) Vancomycin Trough 15.0 H Blood Type Antibody Screen BBK History Checked Assessment & Plan (1) Delirium Assessment and Plan: Would recommend avoiding benzodiazepines, which can cause paradoxical agitation and confusion in the elderly. I recommend starting Seroquel 25 mg scheduled at 4PM daily. Consider avoiding opiates as well, and attempt using alternative medications for pain control. Moving the patient's bed next to the window to ensure diurnal patterns is recommended, as well as pictures of family members and familiar sounds (movies, songs, etc). Status: Acute (2) Toxic metabolic encephalopathy Assessment and Plan: I recommend treating the underlying medical condition and continue treatment of infection per the primary team. Appropriate hydration is recommended and caloric intake counting to ensure adequate sustenance is also recommended. Status: Acute
--- NOTE | 2017-06-28 15:08 | CP.PCM.PN ---
Subjective - Date & Time of Evaluation Date of Evaluation: 06/28/17 Time of Evaluation: 15:00 - Subjective Subjective: I D NOTE FOR PRESENT NO CHANGE IN ANTIBIOTIC COVERAGE VANCOMYCIN TROUGH WAS 15 HAVE ADJUSTED DOSE TO 500MG IVPB Q12H CT SCAN OF CHEST IS PENDING Objective - Vital Signs/Intake and Output Vital Signs (last 24 hours): Temp Pulse Resp BP Pulse Ox 98.1 F 90 20 124/71 99 06/28/17 07:26 06/28/17 07:26 06/28/17 07:26 06/28/17 07:26 06/28/17 07:26 - Medications Medications: Current Medications Acetaminophen (Tylenol 325mg Tab) 650 mg PO Q6 PRN PRN Reason: Temp >101 Alprazolam (Xanax) 0.25 mg PO Q12 [facility] Stop: 07/04/17 21:01 Last Admin: 06/28/17 14:26 Dose: 0.25 mg Artificial Tears (Artificial Tears) 2 drop OU Q4H PRN PRN Reason: Dry eyes Ascorbic Acid (Vitamin C 500 Mg Tab) 500 mg PO DAILY [facility] Last Admin: 06/28/17 08:14 Dose: 500 mg Cholecalciferol (Vitamin D) 1,000 intlu PO DAILY [facility] Last Admin: 06/28/17 08:14 Dose: 1,000 intlu Enoxaparin Sodium (Lovenox) 40 mg SC DAILY [facility] PRN Reason: Protocol Last Admin: 06/28/17 08:14 Dose: 40 mg Haloperidol Lactate (Haldol) 1 mg IM Q6H PRN PRN Reason: Agitation Sodium Chloride (Sodium Chloride 0.9%) 500 mls @ 500 mls/hr IV .Q1H [facility] Last Admin: 06/27/17 17:14 Dose: 500 mls/hr Cefepime HCl 1 gm/ Sodium (Chloride) 100 mls @ 100 mls/hr IVPB Q12 [facility] PRN Reason: Protocol Last Admin: 06/28/17 08:13 Dose: 100 mls/hr Vancomycin HCl 500 mg/ Sodium (Chloride) 100 mls @ 100 mls/hr IVPB Q12 [facility] PRN Reason: Protocol Lactobacillus Acidophilus (Bacid Acidophilus) 1 cap PO BID [facility] Last Admin: 06/28/17 08:19 Dose: 1 cap Magnesium Hydroxide (Milk Of Magnesia) 30 ml PO DAILY PRN PRN Reason: Constipation Mirtazapine (Remeron) 7.5 mg PO HS [facility] Last Admin: 06/27/17 22:31 Dose: 7.5 mg Multivitamins/Minerals (Therapeutic-M Tab) 1 tab PO DAILY [facility] Last Admin: 06/28/17 08:14 Dose: 1 tab Tamsulosin HCl (Flomax) 0.4 mg PO DAILY [facility] Last Admin: 06/28/17 08:14 Dose: 0.4 mg Tramadol HCl (Ultram) 50 mg PO Q6 PRN PRN Reason: Pain, moderate (4-7) Last Admin: 06/28/17 08:19 Dose: 50 mg - Labs Labs: 06/28/17 05:30 06/28/17 05:30 PT 15.5 Seconds (9.8-13.1) H 06/28/17 05:30 INR 1.4 (0.9-1.2) H 06/28/17 05:30 APTT 44.6 Seconds (25.6-37.1) H 06/27/17 19:36
--- NOTE | 2017-06-28 16:56 | CP.PCM.PN ---
Subjective - Date & Time of Evaluation Date of Evaluation: 06/28/17 Time of Evaluation: 11:00 - Subjective Subjective: Patient seen and examined. More confused today. Objective - Vital Signs/Intake and Output Vital Signs (last 24 hours): Temp Pulse Resp BP Pulse Ox 98.7 F 76 20 119/71 97 06/28/17 16:17 06/28/17 16:17 06/28/17 16:17 06/28/17 16:17 06/28/17 16:17 - Medications Medications: Current Medications Acetaminophen (Tylenol 325mg Tab) 650 mg PO Q6 PRN PRN Reason: Temp >101 Alprazolam (Xanax) 0.25 mg PO Q12 [facility] Stop: 07/04/17 21:01 Last Admin: 06/28/17 14:26 Dose: 0.25 mg Artificial Tears (Artificial Tears) 2 drop OU Q4H PRN PRN Reason: Dry eyes Ascorbic Acid (Vitamin C 500 Mg Tab) 500 mg PO DAILY [facility] Last Admin: 06/28/17 08:14 Dose: 500 mg Cholecalciferol (Vitamin D) 1,000 intlu PO DAILY [facility] Last Admin: 06/28/17 08:14 Dose: 1,000 intlu Enoxaparin Sodium (Lovenox) 40 mg SC DAILY [facility] PRN Reason: Protocol Last Admin: 06/28/17 08:14 Dose: 40 mg Haloperidol Lactate (Haldol) 1 mg IM Q6H PRN PRN Reason: Agitation Sodium Chloride (Sodium Chloride 0.9%) 500 mls @ 500 mls/hr IV .Q1H [facility] Last Admin: 06/27/17 17:14 Dose: 500 mls/hr Cefepime HCl 1 gm/ Sodium (Chloride) 100 mls @ 100 mls/hr IVPB Q12 [facility] PRN Reason: Protocol Last Admin: 06/28/17 08:13 Dose: 100 mls/hr Vancomycin HCl 500 mg/ Sodium (Chloride) 100 mls @ 100 mls/hr IVPB Q12 [facility] PRN Reason: Protocol Lactobacillus Acidophilus (Bacid Acidophilus) 1 cap PO BID [facility] Last Admin: 06/28/17 08:19 Dose: 1 cap Magnesium Hydroxide (Milk Of Magnesia) 30 ml PO DAILY PRN PRN Reason: Constipation Mirtazapine (Remeron) 7.5 mg PO HS [facility] Last Admin: 06/27/17 22:31 Dose: 7.5 mg Multivitamins/Minerals (Therapeutic-M Tab) 1 tab PO DAILY [facility] Last Admin: 06/28/17 08:14 Dose: 1 tab Quetiapine Fumarate (Seroquel) 25 mg PO [facility] Last Admin: 06/28/17 15:48 Dose: 25 mg Tamsulosin HCl (Flomax) 0.4 mg PO DAILY [facility] Last Admin: 06/28/17 08:14 Dose: 0.4 mg Tramadol HCl (Ultram) 50 mg PO Q6 PRN PRN Reason: Pain, moderate (4-7) Last Admin: 06/28/17 08:19 Dose: 50 mg - Labs Labs: 06/28/17 05:30 06/28/17 05:30 PT 15.5 Seconds (9.8-13.1) H 06/28/17 05:30 INR 1.4 (0.9-1.2) H 06/28/17 05:30 APTT 44.6 Seconds (25.6-37.1) H 06/27/17 19:36 - Constitutional Appears: No Acute Distress - Head Exam Head Exam: ATRAUMATIC - Eye Exam Eye Exam: absent: Scleral icterus - ENT Exam ENT Exam: Mucous Membranes Moist - Neck Exam Neck Exam: absent: Meningismus - Respiratory Exam Respiratory Exam: absent: Rhonchi, Wheezes, Respiratory Distress - Cardiovascular Exam Cardiovascular Exam: REGULAR RHYTHM, +S1, +S2 - GI/Abdominal Exam GI & Abdominal Exam: Soft. absent: Tenderness - Rectal Exam Rectal Exam: Deferred - Neurological Exam Neurological Exam: Awake - Psychiatric Exam Psychiatric exam: Normal Affect - Skin Skin Exam: Dry, Intact Assessment and Plan - Assessment and Plan (Free Text) Assessment: 82 yo male with history of DVT, Arthritis and BPH sent back from half-way because of pain on left knee. He was discharged to [facility] a month ago after revision was done on his left TKR. Wound culture grew Staph aureus. He was put on IV Cefepime and Vanco which were continued when he was transferred to [facility]. About a week ago as per daughter, patient was lifted and probably injured and dislocated his left knee. Patient has been in pain since then. 1. Dislocated Left TKR for possible revision Eliquis on hold continue Cefepime Vanco trough: 15 reduce Vanco to 500mg IV q 12hrs 2. DVT Eliquis put on hold Lovenox 40mg SC daily hematology consult with Dr Sal 3. BPH on Flomax 4. Right Apical Density asymptomatic, no SOB, no chest pain CT scan of chest 5. Altered Mental Status daughter claimed that her father was confused the other day but was fully alert yesterday more confused today neuro consult with Dr Canela CT scan of the head
--- NOTE | 2017-06-28 19:01 | CP.PCM.CON ---
History of Present Illness - History of Present Illness History of Present Illness: 82 year old male with a history of HTN, anemia, left TKR in 03/2017, LLE DVT on Eliquis, traumatic fall requiring quadricep repair 05/2017, readmitted with swelling and pain of his left LE, requiring explant and bio spacer insertion, now admitted with spacer dislocation requiring surgery. The patient is a poor historian and information is obtained from his records. During his last admission a few weeks ago, a LLE venous duplex was negative for DVT. Since then, it appears he has remained on Eliquis in the [facility] which was last given 06/27/17. Past medical history: HTN, anemia, LLE DVT Pat surgical history: elft TKR, quadricep repair Family history: Denies Social history: Denies Allergies: NKA Review of systems: All remaining review of systems including HEENT, cardiovascular, respiratory, gastrointestinal, genitourinary, musculoskeletal, dermatologic, neurologic, and psychiatric are negative unless mentioned in the HPI. Past Patient History - Tetanus Immunizations Tetanus Immunization: Unknown - Past Medical History & Family History Past Medical History?: Yes - Past Social History Smoking Status: Never Smoked Chewing Tobacco Use: No Cigar Use: No Alcohol: Social Drugs: Denies - CARDIAC Hx Hypertension: Yes - PULMONARY Hx Bronchitis: Yes - NEUROLOGICAL Hx Dementia: Yes - HEENT Hx Cataracts: Yes - RENAL Hx Chronic Kidney Disease: No - ENDOCRINE/METABOLIC Hx Endocrine Disorders: No - HEMATOLOGICAL/ONCOLOGICAL Hx Anemia: Yes Hx Blood Transfusions: Yes Hx Blood Transfusion Reaction: No Hx Human Immunodeficiency Virus (HIV): No Other/Comment: DVT - INTEGUMENTARY Hx Dermatological Problems: No - MUSCULOSKELETAL/RHEUMATOLOGICAL Hx Arthritis: Yes Hx Falls: Yes - GASTROINTESTINAL Hx Gastrointestinal Disorders: Yes - GENITOURINARY/GYNECOLOGICAL Hx Genitourinary Disorders: No Hx Prostate Problems: Yes - PSYCHIATRIC Hx Anxiety: Yes Hx Substance Use: No - SURGICAL HISTORY Hx Surgeries: Yes Hx Cataract Extraction: Yes Hx Herniorrhaphy: Yes Hx Orthopedic Surgery: Yes (L knee) Hx Tonsillectomy: Yes - ANESTHESIA Hx Anesthesia: Yes Hx Anesthesia Reactions: No Hx Malignant Hyperthermia: No Has any member of the family had a problem w/ anesthesia?: No Meds Allergies/Adverse Reactions: Allergies Allergy/AdvReac Type Severity Reaction Status Date / Time acetaminophen [From Percocet] Allergy ITCHING Verified 04/09/17 06:41 celecoxib [From Celebrex] Allergy ITCHING Verified 04/07/17 06:23 oxycodone [From Percocet] Allergy ITCHING Verified 04/09/17 06:41 - Medications Medications: Current Medications Acetaminophen (Tylenol 325mg Tab) 650 mg PO Q6 PRN PRN Reason: Temp >101 Alprazolam (Xanax) 0.25 mg PO Q12 [facility] Stop: 07/04/17 21:01 Last Admin: 06/28/17 14:26 Dose: 0.25 mg Artificial Tears (Artificial Tears) 2 drop OU Q4H PRN PRN Reason: Dry eyes Ascorbic Acid (Vitamin C 500 Mg Tab) 500 mg PO DAILY [facility] Last Admin: 06/28/17 08:14 Dose: 500 mg Cholecalciferol (Vitamin D) 1,000 intlu PO DAILY [facility] Last Admin: 06/28/17 08:14 Dose: 1,000 intlu Enoxaparin Sodium (Lovenox) 40 mg SC DAILY [facility] PRN Reason: Protocol Last Admin: 06/28/17 08:14 Dose: 40 mg Haloperidol Lactate (Haldol) 1 mg IM Q6H PRN PRN Reason: Agitation Sodium Chloride (Sodium Chloride 0.9%) 500 mls @ 500 mls/hr IV .Q1H [facility] Last Admin: 06/27/17 17:14 Dose: 500 mls/hr Cefepime HCl 1 gm/ Sodium (Chloride) 100 mls @ 100 mls/hr IVPB Q12 [facility] PRN Reason: Protocol Last Admin: 06/28/17 08:13 Dose: 100 mls/hr Vancomycin HCl 500 mg/ Sodium (Chloride) 100 mls @ 100 mls/hr IVPB Q12 [facility] PRN Reason: Protocol Lactobacillus Acidophilus (Bacid Acidophilus) 1 cap PO BID [facility] Last Admin: 06/28/17 17:31 Dose: 1 cap Magnesium Hydroxide (Milk Of Magnesia) 30 ml PO DAILY PRN PRN Reason: Constipation Mirtazapine (Remeron) 7.5 mg PO HS [facility] Last Admin: 06/27/17 22:31 Dose: 7.5 mg Multivitamins/Minerals (Therapeutic-M Tab) 1 tab PO DAILY [facility] Last Admin: 06/28/17 08:14 Dose: 1 tab Quetiapine Fumarate (Seroquel) 25 mg PO HS [facility] Last Admin: 06/28/17 15:48 Dose: 25 mg Tamsulosin HCl (Flomax) 0.4 mg PO DAILY [facility] Last Admin: 06/28/17 08:14 Dose: 0.4 mg Tramadol HCl (Ultram) 50 mg PO Q6 PRN PRN Reason: Pain, moderate (4-7) Last Admin: 06/28/17 17:52 Dose: 50 mg Physical Exam - Head Exam Head Exam: ATRAUMATIC - Eye Exam Eye Exam: Normal appearance - ENT Exam ENT Exam: Mucous Membranes Dry - Respiratory Exam Respiratory Exam: NORMAL BREATHING PATTERN - Cardiovascular Exam Cardiovascular Exam: +S1, +S2 - GI/Abdominal Exam GI & Abdominal Exam: Normal Bowel Sounds - Extremities Exam Additional comments: LLE brace - Neurological Exam Neurological exam: Altered - Psychiatric Exam Psychiatric exam: Flat Affect - Skin Skin Exam: Warm Results - Vital Signs Recent Vital Signs: Last Vital Signs Temp 98.7 F 06/28/17 16:17 Pulse 76 06/28/17 16:17 Resp 20 06/28/17 16:17 BP 119/71 06/28/17 16:17 Pulse Ox 97 06/28/17 16:17 - Labs Result Diagrams: 06/28/17 05:30 06/28/17 05:30 Labs: Laboratory Results - last 24 hr 06/27/17 06/27/17 06/28/17 17:44 19:36 05:30 WBC 7.4 RBC 3.35 L Hgb 10.1 L Hct 29.7 L MCV 88.6 MCH 30.2 MCHC 34.1 RDW 16.2 H Plt Count 137 MPV 8.0 Neut % (Auto) 68.5 Lymph % (Auto) 18.7 L [place] % (Auto) 10.9 H Eos % (Auto) 1.4 Baso % (Auto) 0.5 Neut # (Auto) 5.0 Lymph # (Auto) 1.4 [place] # (Auto) 0.8 Eos # (Auto) 0.1 Baso # (Auto) 0.0 PT INR APTT 44.6 H Sodium Potassium Chloride Carbon Dioxide Anion Gap BUN Creatinine Est GFR ( Amer) Est GFR (Non-Af Amer) Random Glucose Calcium Vancomycin Trough Blood Type O POSITIVE Antibody Screen Negative 06/28/17 06/28/17 06/28/17 05:30 05:30 08:18 WBC RBC Hgb Hct MCV MCH MCHC RDW Plt Count MPV Neut % (Auto) Lymph % (Auto) [place] % (Auto) Eos % (Auto) Baso % (Auto) Neut # (Auto) Lymph # (Auto) [place] # (Auto) Eos # (Auto) Baso # (Auto) PT 15.5 H INR 1.4 H APTT Sodium 137 Potassium 4.0 Chloride 102 Carbon Dioxide 29 Anion Gap 10 BUN 17 Creatinine 0.5 L Est GFR ( Amer) > 60 Est GFR (Non-Af Amer) > 60 Random Glucose 111 H Calcium 8.1 L Vancomycin Trough 15.0 H Blood Type Antibody Screen Assessment & Plan (1) Coagulopathy Assessment and Plan: secondary to recent Eliquis and likely nutritional component will give a dose of Vit K IV Eliquis should be held a minimum of 48 hours prior to surgery goal INR < 1.5 Status: Acute (2) Anemia Assessment and Plan: will check retic count, b12, folate, ferritin to further characterize Status: Chronic (3) Dvt femoral (deep venous thrombosis) Assessment and Plan: likely provoked resume Eliquis once cleared by orthopedics Thank you for this interesting consult. Status: Acute
[2017-06-28] MEDS ORDERED: Phytonadione 10 mg/ml Inj (Adult) IV ONE (19:06)
[2017-06-28] MEDS ORDERED: Phytonadione 10 MG in Sodium Chloride 0.9% 50 ML IV ONE (19:15)
[2017-06-29] MEDS: Cefepime 1 GM in Sodium Chloride 0.9% 100 ML IVPB SCH ×2 (08:21→20:59)
[2017-06-29] MEDS: Enoxaparin 40 mg Syringe SC SCH (08:24)
[2017-06-29] MEDS: Cholecalciferol 1,000 INTLU TAB PO SCH (08:24)
[2017-06-29] MEDS: Lactobacillus Acidophilus 500 MU Cap PO SCH ×2 (08:24→16:06)
[2017-06-29] MEDS: Multivitamin With Minerals Tab PO SCH (08:24)
--- NOTE | 2017-06-29 10:47 | CP.PCM.PN ---
Subjective - Date & Time of Evaluation Date of Evaluation: 06/29/17 Time of Evaluation: 10:00 - Subjective Subjective: Patient seen and examined. Appeared calmer today although remained confused. Pain on left knee tolerable. Objective - Vital Signs/Intake and Output Vital Signs (last 24 hours): Temp Pulse Resp BP Pulse Ox 98.5 F 80 20 120/73 94 L 06/29/17 08:16 06/29/17 08:16 06/29/17 08:16 06/29/17 08:16 06/29/17 08:16 - Medications Medications: Current Medications Acetaminophen (Tylenol 325mg Tab) 650 mg PO Q6 PRN PRN Reason: Temp >101 Alprazolam (Xanax) 0.25 mg PO Q12 [facility] Stop: 07/04/17 21:01 Last Admin: 06/29/17 08:25 Dose: Not Given Artificial Tears (Artificial Tears) 2 drop OU Q4H PRN PRN Reason: Dry eyes Ascorbic Acid (Vitamin C 500 Mg Tab) 500 mg PO DAILY [facility] Last Admin: 06/29/17 08:24 Dose: 500 mg Cholecalciferol (Vitamin D) 1,000 intlu PO DAILY [facility] Last Admin: 06/29/17 08:24 Dose: 1,000 intlu Enoxaparin Sodium (Lovenox) 40 mg SC DAILY [facility] PRN Reason: Protocol Last Admin: 06/29/17 08:24 Dose: 40 mg Haloperidol Lactate (Haldol) 1 mg IM Q6H PRN PRN Reason: Agitation Cefepime HCl 1 gm/ Sodium (Chloride) 100 mls @ 100 mls/hr IVPB Q12 [facility] PRN Reason: Protocol Last Admin: 06/29/17 08:21 Dose: 100 mls/hr Vancomycin HCl 500 mg/ Sodium (Chloride) 100 mls @ 100 mls/hr IVPB Q12 [facility] PRN Reason: Protocol Last Admin: 06/29/17 08:21 Dose: 100 mls/hr Lactobacillus Acidophilus (Bacid Acidophilus) 1 cap PO BID [facility] Last Admin: 06/29/17 08:24 Dose: 1 cap Magnesium Hydroxide (Milk Of Magnesia) 30 ml PO DAILY PRN PRN Reason: Constipation Mirtazapine (Remeron) 7.5 mg PO HS [facility] Last Admin: 06/28/17 21:36 Dose: 7.5 mg Multivitamins/Minerals (Therapeutic-M Tab) 1 tab PO DAILY [facility] Last Admin: 06/29/17 08:24 Dose: 1 tab Quetiapine Fumarate (Seroquel) 25 mg PO HS [facility] Last Admin: 06/28/17 21:05 Dose: Not Given Tamsulosin HCl (Flomax) 0.4 mg PO DAILY [facility] Last Admin: 06/29/17 08:24 Dose: 0.4 mg Tramadol HCl (Ultram) 50 mg PO Q6 PRN PRN Reason: Pain, moderate (4-7) Last Admin: 06/29/17 01:09 Dose: 50 mg - Labs Labs: 06/28/17 05:30 06/28/17 05:30 PT 15.5 Seconds (9.8-13.1) H 06/28/17 05:30 INR 1.4 (0.9-1.2) H 06/28/17 05:30 APTT 44.6 Seconds (25.6-37.1) H 06/27/17 19:36 - Constitutional Appears: No Acute Distress - Head Exam Head Exam: ATRAUMATIC - Eye Exam Eye Exam: absent: Scleral icterus - ENT Exam ENT Exam: Mucous Membranes Moist - Neck Exam Neck Exam: absent: Meningismus - Respiratory Exam Respiratory Exam: absent: Rhonchi, Wheezes, Respiratory Distress - Cardiovascular Exam Cardiovascular Exam: REGULAR RHYTHM, +S1, +S2 - GI/Abdominal Exam GI & Abdominal Exam: Soft. absent: Tenderness - Rectal Exam Rectal Exam: Deferred - Extremities Exam Extremities Exam: absent: Full ROM (left knee painful to move) - Neurological Exam Neurological Exam: Alert. absent: Oriented x3 (disoriented to time and place) - Psychiatric Exam Psychiatric exam: Normal Affect - Skin Skin Exam: Dry, Intact Assessment and Plan - Assessment and Plan (Free Text) Assessment: 82 yo male with history of DVT, Arthritis and BPH sent back from residential because of pain on left knee. He was discharged to [facility] a month ago after revision was done on the left TKR. Wound culture grew Staph aureus. He was put on IV Cefepime and Vanco which were continued when he was transferred to [facility]. About a week ago as per daughter, patient was lifted and probably injured and dislocated left knee. Patient has been in pain since then. 1. Dislocated Left TKR for possible revision Eliquis on hold continue Cefepime Vanco trough: 15 reduce Vanco to 500mg IV q 12hrs on cardiology consult with Dr Oliveira for cardiac clearance 2. DVT Eliquis on hold Lovenox 40mg SC daily hematology consult with Dr Sal appreciated INR: 1.4 3. BPH on Flomax 4. Right Apical Density asymptomatic, no SOB, no chest pain CT scan of chest 5. Altered Mental Status still confused; disoriented to time and place neuro consult with Dr Canela appreciated CT scan of the head
[2017-06-29] MEDS ORDERED: Iodixanol 320 MG/ML 100 ML BOTTLE IV ONE (11:43)
[2017-06-29] MEDS ORDERED: Sodium Chloride 0.9% 100 ML ONE (11:43)
--- NOTE | 2017-06-29 12:43 | CT ---
PROCEDURE: CT HEAD WITHOUT CONTRAST. HISTORY: Altered red mental status COMPARISON: None available. TECHNIQUE: Axial computed tomography images were obtained through the head/brain without intravenous contrast. Radiation dose: Total exam DLP = 1102.05 mGy-cm. This CT exam was performed using one or more of the following dose reduction techniques: Automated exposure control, adjustment of the mA and/or kV according to patient size, and/or use of iterative reconstruction technique. FINDINGS: HEMORRHAGE: No acute parenchymal, subarachnoid or extra-axial hemorrhage. Hemorrhage. BRAIN: Mild moderate diffuse/confluent chronic white matter ischemic changes seen extending peripherally into the deep and subcortical white matter both cerebral hemispheres. Additionally, there are scattered chronic bilateral basal nuclei lacunar type infarcts as well. Moderate generalized volume loss. Mild vascular calcifications both carotid siphons VENTRICLES: Unremarkable. No hydrocephalus. CALVARIUM: Unremarkable. PARANASAL SINUSES: Postoperative changes involving the nasal cavity, with medial wall antrostomy defects and partial ethmoidectomy changes. The MASTOID AIR CELLS: Unremarkable as visualized. No inflammatory changes. OTHER FINDINGS: Changes of bilateral cataract surgery. IMPRESSION: No acute intracranial hemorrhage. Mild to moderate chronic white matter ischemic changes with scattered chronic bilateral basal nuclei lacunar type infarcts. Moderate volume loss.
--- NOTE | 2017-06-29 14:00 | CT ---
PROCEDURE: CT Chest with contrast HISTORY: Aneurysm COMPARISON: None. TECHNIQUE: Contiguous axial images were obtained through the chest with intravenous contrast enhancement. Sagittal and coronal reconstructions were performed. IV contrast: 98 cc Visipaque 320 Radiation dose (DLP): 463.64 mGy-cm. This CT exam was performed using one or more of the following dose reduction techniques: Automated exposure control, adjustment of the mA and/or kV according to patient size, and/or use of iterative reconstruction technique. FINDINGS: LUNGS: Mild bibasilar atelectasis and scarring changes left greater than right. Minor scarring changes also seen in the left upper lobe the Suspect trace right-sided effusion. Minor biapical pleural thickening and adjacent parenchymal scarring the the MEDIASTINUM: The heart is upper limits of normal/ borderline enlarged. . No significant pericardial effusion. There is mild fusiform aneurysmal dilatation of the ascending thoracic aorta measuring approximately 3.94 cm. Descending thoracic aorta measures approximately 3.1 cm. Pulmonary trunk measures approximately 2.93 cm. No significant mediastinal or hilar adenopathy. . PLEURA: There appears to be a small loculated pleural fluid lesion left posterior sulcus with eventration of the left hemidiaphragm. BONES: Chronic anterior wedge compression fractures of the L1 and T12 segments former greater than latter with near vertebral plana appearance of the anterior 2/3 of the L1 segment. There is kyphotic angulation deformity centered at this level as well. Mild chronic anterior wedge deformities of the T7 segment with mild fish-mouth endplate deformities of mild multiple additional segments of. In addition, there is also a mild dextroscoliosis lower thoracic region. UPPER ABDOMEN: Kidney partially exophytic cortical cyst upper pole left kidney. . Changes of cholecystectomy. OTHER FINDINGS: None. IMPRESSION: The there is mild fusiform aneurysmal dilatation of the ascending thoracic aorta measuring nearly 4 cm in greatest transverse dimension. The descending thoracic aorta measures approximately 3.1 cm. Small loculated pleural collection left lung base with eventration left hemidiaphragm. Bibasilar atelectasis/scarring with the mild scarring left upper lobe. Suspect trace effusion. Minimal localized posterior pleural thickening is seen in the superior margins of the lower lobes. Small cortical cyst left kidney. Changes of cholecystectomy Chronic anterior wedge compression fractures L1, T12 and to a much lesser degree T7 segments. Multilevel degenerative spondylosis.
[2017-06-29 17:30] LABS: FOLATE 5.3 ng/mL
[2017-06-29] MEDS ORDERED: Povidone Iodine Topical 10% Sol ONE (17:41)
--- NOTE | 2017-06-29 18:08 | PN ---
DATE: SUBJECTIVE: The patient is more cooperative today. He is oriented to place. He denies any chest pain. PHYSICAL EXAMINATION: VITAL SIGNS: Blood pressure , heart rate 82, temperature 98.5, and respirations 20. HEENT: Pale conjunctivae. CHEST: Clear. HEART: S1 and S2 regular. EXTREMITIES: No pedal edema. LABORATORY DATA: level is 321. Vitamin B12 is 887. Folate level is pending. Head CT scan without contrast, no acute intracranial hemorrhage, [id number] chronic white matter ischemic changes with scattered chronic bilateral basal ganglia lacunar infarct. Chest CT scan was done, the report is still pending. ASSESSMENT: 1. Fracture and dislocation of left knee with soft tissue swelling, rule out abscess. 2. Abnormal echocardiogram with reverse R-wave progression, possible old anterior infarct. 3. Altered mental status. 4. Anemia. RECOMMENDATIONS: Continue current IV cefepime at 1 g twice a day, Lovenox 40 mg subcutaneously once a day, and vancomycin at 500 mg intravenously twice a day. Follow chest CT scan. Awaiting echo to be done tomorrow, hopefully the patient will be more cooperative. Liban Oliveira MD
[2017-06-30 07:23] LABS: INR 1.3 (0.9-1.2); PARTIAL THROMBOPLASTIN TIME 40.4 Seconds (25.6-37.1); PROTHROMBIN TIME 14.6 Seconds (9.8-13.1)
--- NOTE | 2017-06-30 08:18 | CON ---
DATE: CARDIOLOGY CONSULTATION REASON FOR CONSULTATION: Preoperative evaluation. HISTORY OF PRESENT ILLNESS: The patient is an 82-year-old male who underwent a few months ago total left knee replacement followed by explant and insertion of spacer few weeks ago. The patient is a care home patient. The patient was admitted because of gross knee deformity as well as altered mental status. Left knee CT scan revealed fracture dislocation and soft tissue collection. Differential diagnosis is seroma, hematoma versus abscess. The patient is being evaluated for closed reduction possible open reduction after cardiopulmonary clearance. The entire medical history is not available to me and it will be obtained from the daughter when she is available. There is no EKG done at [facility] according to [employer] database. SOCIAL HISTORY: The patient is a care home resident. MEDICATIONS: Lactobacillus acidophilus 1 tablet twice a day, cefepime 1 g intravenously q.12 hours, Lovenox 40 mg subcutaneous once a day, Ultram 50 mg p.o. q.6 hours p.r.n., vancomycin 1 g intravenously q.12 hours, vitamin C and vitamin D, and Xanax 0.25 mg p.o. twice a day. REVIEW OF SYSTEMS: No reported hypertension. No reported seizures. The patient is confused and at times agitated and the nursing staff is in the process of transferring him to a room close to the nursing station. PHYSICAL EXAMINATION: GENERAL: The patient is an elderly male who is confused, at times restless, does not appear to be in any respiratory distress. VITAL SIGNS: Blood pressure 124/71, heart rate 90, temperature 98.1, and respirations 20. HEENT: Normocephalic. CHEST: Minimal rhonchi. HEART: S1 and S2 regular. ABDOMEN: Soft. EXTREMITIES: No edema. LABORATORY DATA: Hemoglobin and hematocrit are 10.1 and 29.7, white count 7.4, and platelet count 137,000. SMA-7; sodium 137, potassium 4, chloride 102, CO2 29, glucose 111, BUN 17, and creatinine 0.5. One set of troponin is within normal limits. Synovial fluid 2 days ago was positive for 7864 white blood cells per high-power field as well as 5664 RBCs, neutrophils were 76%. INR is 1.4. EKG, sinus rhythm at rate of 75, R-wave progression, cannot rule out old anterior infarct. Chest x-ray revealed normal cardiac silhouette, significantly widened mediastinum. ASSESSMENT: 1. Status post dislocated knee spacer at rehab. The patient is considered for closed with possible open reduction in the operating room. 2. Rule out underlying sepsis. 3. Significantly widened mediastinum on the chest x-ray. 4. Altered mental status. 5. Mild anemia. 6. Abnormal electrocardiogram with possible old anterior infarct. RECOMMENDATIONS: Continue current IV vancomycin and IV cefepime. Continue subcutaneous Lovenox at 40 mg once a day. Obtain 2 sets of blood cultures, an echocardiogram and chest CT scan without contrast; however, because of the patient's ongoing restlessness and agitation, an echocardiogram could not be performed today. I recommended the patient should be placed on Haldol at IM q.6 hours p.r.n. Liban Oliveira MD
--- NOTE | 2017-06-30 09:53 | CP.PCM.PN ---
Subjective - Date & Time of Evaluation Date of Evaluation: 06/30/17 Time of Evaluation: 09:51 - Subjective Subjective: Mr. Long was seen and examined at the bedside. He is awake able to verbalize place ( hospital), but not time and person. He is able to answer some questions. He denies any headache, dizziness, pain, blurred vision, nausea, or vomiting. He is able to move upeer extremities freely in comparison to lower extremities. Sensation remains intact with the lower extremities. There was no untoward events overnight. Objective - Vital Signs/Intake and Output Vital Signs (last 24 hours): Temp Pulse Resp BP Pulse Ox 99.1 F 88 20 100/51 L 94 L 06/30/17 07:55 06/30/17 07:55 06/30/17 07:55 06/30/17 07:55 06/30/17 07:55 - Medications Medications: Current Medications Acetaminophen (Tylenol 325mg Tab) 650 mg PO Q6 PRN PRN Reason: Temp >101 Acetaminophen (Tylenol 325mg Tab) 650 mg PO Q4 PRN PRN Reason: Pain, Mild (1-3) Last Admin: 06/29/17 12:48 Dose: 650 mg Artificial Tears (Artificial Tears) 2 drop OU Q4H PRN PRN Reason: Dry eyes Ascorbic Acid (Vitamin C 500 Mg Tab) 500 mg PO DAILY [facility] Last Admin: 06/29/17 08:24 Dose: 500 mg Cholecalciferol (Vitamin D) 1,000 intlu PO DAILY [facility] Last Admin: 06/29/17 08:24 Dose: 1,000 intlu Enoxaparin Sodium (Lovenox) 40 mg SC DAILY [facility] PRN Reason: Protocol Last Admin: 06/29/17 08:24 Dose: 40 mg Haloperidol Lactate (Haldol) 1 mg IM Q6H PRN PRN Reason: Agitation Cefepime HCl 1 gm/ Sodium (Chloride) 100 mls @ 100 mls/hr IVPB Q12 [facility] PRN Reason: Protocol Last Admin: 06/29/17 20:59 Dose: 100 mls/hr Vancomycin HCl 500 mg/ Sodium (Chloride) 100 mls @ 100 mls/hr IVPB Q12 [facility] PRN Reason: Protocol Last Admin: 06/29/17 20:59 Dose: 100 mls/hr Lactobacillus Acidophilus (Bacid Acidophilus) 1 cap PO BID [facility] Last Admin: 06/29/17 16:06 Dose: 1 cap Magnesium Hydroxide (Milk Of Magnesia) 30 ml PO DAILY PRN PRN Reason: Constipation Mirtazapine (Remeron) 7.5 mg PO HS [facility] Last Admin: 06/29/17 21:01 Dose: 7.5 mg Multivitamins/Minerals (Therapeutic-M Tab) 1 tab PO DAILY [facility] Last Admin: 06/29/17 08:24 Dose: 1 tab Quetiapine Fumarate (Seroquel) 25 mg PO DAILY@1600 [facility] Last Admin: 06/29/17 16:06 Dose: 25 mg Tamsulosin HCl (Flomax) 0.4 mg PO DAILY [facility] Last Admin: 06/29/17 08:24 Dose: 0.4 mg Tramadol HCl (Ultram) 50 mg PO Q6 PRN PRN Reason: Pain, moderate (4-7) Last Admin: 06/29/17 11:15 Dose: 50 mg - Labs Labs: 06/28/17 05:30 06/28/17 05:30 PT 14.6 Seconds (9.8-13.1) H 06/30/17 06:25 INR 1.3 (0.9-1.2) H 06/30/17 06:25 APTT 40.4 Seconds (25.6-37.1) H 06/30/17 06:25 - Constitutional Appears: No Acute Distress - Head Exam Head Exam: NORMAL INSPECTION - Neurological Exam Neurological Exam: Alert, Awake Neuro motor strength exam: Left Upper Extremity: 5, Right Upper Extremity: 5, Left Lower Extremity: 2/1, Right Lower Extremity: 2/1 Additional comments: He can verbalize place, but not time and person. Sensation remains intact. He is able to move his upper extremities spontaneously. Assessment and Plan (1) Delirium Assessment & Plan: Case discussed with Dr. Hearn, continue all current medical treatment, recommend avoiding benzodiazepines, which can cause paradoxical agitation and confusion in the elderly and avoiding opiates as well, and attempt using alternative medications for pain control. Status: Acute (2) Toxic metabolic encephalopathy Assessment & Plan: Case discussed with Dr. Hearn, continue all current medical, physical, and occupational therapies. Recommend treating the underlying medical condition and continue treatment of infection per the primary team. Appropriate hydration is recommended and caloric intake counting to ensure adequate sustenance is also recommended. Status: Acute
[2017-06-30] MEDS: Lactobacillus Acidophilus 500 MU Cap PO SCH ×2 (11:02→16:54)
[2017-06-30] MEDS: Enoxaparin 40 mg Syringe SC SCH (11:03)
[2017-06-30] MEDS: Multivitamin With Minerals Tab PO SCH (11:04)
[2017-06-30] MEDS: Cholecalciferol 1,000 INTLU TAB PO SCH (11:05)
--- NOTE | 2017-06-30 11:24 | CP.PCM.PN ---
Subjective - Date & Time of Evaluation Date of Evaluation: 06/30/17 Time of Evaluation: 11:24 - Subjective Subjective: CT scan of the thorax was reviewed: No right upper lobe consolidation identified. Small areas of apical scarring and basal pleural thickening are seen. there may be a small basal effusion on the left with small area of eventration in left hemidiaphragm. From a respiratory standpoint he is cleared to proceed with the proposed orthopedic surgery. Objective - Vital Signs/Intake and Output Vital Signs (last 24 hours): Temp Pulse Resp BP Pulse Ox 99.1 F 88 20 100/51 L 94 L 06/30/17 09:00 06/30/17 09:00 06/30/17 09:00 06/30/17 09:00 06/30/17 09:00 - Medications Medications: Current Medications Acetaminophen (Tylenol 325mg Tab) 650 mg PO Q6 PRN PRN Reason: Temp >101 Acetaminophen (Tylenol 325mg Tab) 650 mg PO Q4 PRN PRN Reason: Pain, Mild (1-3) Last Admin: 06/29/17 12:48 Dose: 650 mg Artificial Tears (Artificial Tears) 2 drop OU Q4H PRN PRN Reason: Dry eyes Ascorbic Acid (Vitamin C 500 Mg Tab) 500 mg PO DAILY [facility] Last Admin: 06/30/17 11:04 Dose: 500 mg Cholecalciferol (Vitamin D) 1,000 intlu PO DAILY [facility] Last Admin: 06/30/17 11:05 Dose: 1,000 intlu Enoxaparin Sodium (Lovenox) 40 mg SC DAILY [facility] PRN Reason: Protocol Last Admin: 06/30/17 11:03 Dose: 40 mg Haloperidol Lactate (Haldol) 1 mg IM Q6H PRN PRN Reason: Agitation Cefepime HCl 1 gm/ Sodium (Chloride) 100 mls @ 100 mls/hr IVPB Q12 [facility] PRN Reason: Protocol Last Admin: 06/29/17 20:59 Dose: 100 mls/hr Vancomycin HCl 500 mg/ Sodium (Chloride) 100 mls @ 100 mls/hr IVPB Q12 [facility] PRN Reason: Protocol Last Admin: 06/29/17 20:59 Dose: 100 mls/hr Lactobacillus Acidophilus (Bacid Acidophilus) 1 cap PO BID [facility] Last Admin: 06/30/17 11:02 Dose: 1 cap Magnesium Hydroxide (Milk Of Magnesia) 30 ml PO DAILY [facility] PRN Reason: Constipation Mirtazapine (Remeron) 7.5 mg PO HS [facility] Last Admin: 06/29/17 21:01 Dose: 7.5 mg Multivitamins/Minerals (Therapeutic-M Tab) 1 tab PO DAILY [facility] Last Admin: 06/30/17 11:04 Dose: 1 tab Quetiapine Fumarate (Seroquel) 25 mg PO DAILY@1600 [facility] Last Admin: 06/29/17 16:06 Dose: 25 mg Tamsulosin HCl (Flomax) 0.4 mg PO DAILY [facility] Last Admin: 06/30/17 11:03 Dose: 0.4 mg Tramadol HCl (Ultram) 50 mg PO Q6 PRN PRN Reason: Pain, moderate (4-7) Last Admin: 06/29/17 11:15 Dose: 50 mg - Labs Labs: 06/28/17 05:30 06/28/17 05:30 PT 14.6 Seconds (9.8-13.1) H 06/30/17 06:25 INR 1.3 (0.9-1.2) H 06/30/17 06:25 APTT 40.4 Seconds (25.6-37.1) H 06/30/17 06:25 Assessment and Plan (1) Pulmonary infiltrate in right lung on chest x-ray Status: Suspected
[2017-06-30] MEDS: Cefepime 1 GM in Sodium Chloride 0.9% 100 ML IVPB SCH ×2 (12:21→20:33)
--- NOTE | 2017-06-30 12:24 | CARD ---
APPROVED REPORT EKG Measurement Heart [id number] <Conclusion> Sinus rhythm with premature atrial complexes in a pattern of bigeminy Cannot rule out Anterior infarct, age undetermined Abnormal ECG
--- NOTE | 2017-06-30 15:07 | PN ---
DATE: SUBJECTIVE: The patient is currently confused. A family are at the bedside. According to the family, no known prior cardiac history. The patient before the surgery was ambulating and functional at home. PHYSICAL EXAMINATION: VITAL SIGNS: Blood pressure of 100/51, heart rate of 88, temperature of 99.1, and respirations of 20. HEENT: Normocephalic. CHEST: Diminished breath sounds at the bases. HEART: S1 and S2 regular. ABDOMEN: Soft. EXTREMITIES: No edema. LABORATORY DATA: Blood culture is negative after 48 hours and urine clean catch is positive for Gram-positive cocci. DIAGNOSTIC DATA: Chest CT scan revealed mild fusiform and there is no dilatation of the ascending thoracic aorta nearly 4 cm in greatest diameter, descending thoracic aorta measures approximately 3.1 cm, small loculated pleural collection on the left base with eventration of the left hemidiaphragm. Bibasilar atelectasis/scarring with mild scarring left upper lobe. Small cortical cyst of the left kidney. Chronic anterior wedge compression fracture of L1, T1 degree, T7 segment. Head CT scan without contrast: No acute intracranial hemorrhage, [id number] chronic white matter ischemic changes with scattered chronic bilateral basal nuclei lacunar infarct. ASSESSMENT: 1. Fracture dislocation of left knee. 2. Bilateral basal ganglia lacunar infarcts. 3. 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 4. Rule out underlying sepsis. RECOMMENDATIONS: Continue current IV cefepime and IV vancomycin. Continue Lovenox 40 mg subcutaneous once a day, Seroquel 25 mg once a day, lactobacillus acidophilus 1 capsule twice a day. Case was discussed with the patient's family at the bedside. I would review the echocardiography study performed today. Liban Oliveira MD
--- NOTE | 2017-06-30 16:51 | CP.PCM.PN ---
Subjective - Date & Time of Evaluation Date of Evaluation: 06/30/17 Time of Evaluation: 15:00 - Subjective Subjective: Patient seen and examined. Has been putting out loose stools at least 3-4 times today. Objective - Vital Signs/Intake and Output Vital Signs (last 24 hours): Temp Pulse Resp BP Pulse Ox 98 F 11 L 20 118/72 100 06/30/17 16:22 06/30/17 16:22 06/30/17 16:22 06/30/17 16:22 06/30/17 16:22 - Medications Medications: Current Medications Acetaminophen (Tylenol 325mg Tab) 650 mg PO Q6 PRN PRN Reason: Temp >101 Acetaminophen (Tylenol 325mg Tab) 650 mg PO Q4 PRN PRN Reason: Pain, Mild (1-3) Last Admin: 06/29/17 12:48 Dose: 650 mg Artificial Tears (Artificial Tears) 2 drop OU Q4H PRN PRN Reason: Dry eyes Ascorbic Acid (Vitamin C 500 Mg Tab) 500 mg PO DAILY [facility] Last Admin: 06/30/17 11:04 Dose: 500 mg Cholecalciferol (Vitamin D) 1,000 intlu PO DAILY [facility] Last Admin: 06/30/17 11:05 Dose: 1,000 intlu Enoxaparin Sodium (Lovenox) 40 mg SC DAILY [facility] PRN Reason: Protocol Last Admin: 06/30/17 11:03 Dose: 40 mg Haloperidol Lactate (Haldol) 1 mg IM Q6H PRN PRN Reason: Agitation Cefepime HCl 1 gm/ Sodium (Chloride) 100 mls @ 100 mls/hr IVPB Q12 [facility] PRN Reason: Protocol Last Admin: 06/30/17 12:21 Dose: 100 mls/hr Vancomycin HCl 500 mg/ Sodium (Chloride) 100 mls @ 100 mls/hr IVPB Q12 [facility] PRN Reason: Protocol Last Admin: 06/30/17 13:18 Dose: 100 mls/hr Lactobacillus Acidophilus (Bacid Acidophilus) 1 cap PO BID [facility] Last Admin: 06/30/17 11:02 Dose: 1 cap Magnesium Hydroxide (Milk Of Magnesia) 30 ml PO DAILY [facility] PRN Reason: Constipation Metronidazole (Flagyl) 500 mg PO Q8 [facility] PRN Reason: Protocol Mirtazapine (Remeron) 7.5 mg PO HS [facility] Last Admin: 06/29/17 21:01 Dose: 7.5 mg Multivitamins/Minerals (Therapeutic-M Tab) 1 tab PO DAILY [facility] Last Admin: 06/30/17 11:04 Dose: 1 tab Quetiapine Fumarate (Seroquel) 25 mg PO DAILY@1600 [facility] Last Admin: 06/29/17 16:06 Dose: 25 mg Tamsulosin HCl (Flomax) 0.4 mg PO DAILY [facility] Last Admin: 06/30/17 11:03 Dose: 0.4 mg Tramadol HCl (Ultram) 50 mg PO Q6 PRN PRN Reason: Pain, moderate (4-7) Last Admin: 06/30/17 14:43 Dose: 50 mg - Labs Labs: 06/28/17 05:30 06/28/17 05:30 PT 14.6 Seconds (9.8-13.1) H 06/30/17 06:25 INR 1.3 (0.9-1.2) H 06/30/17 06:25 APTT 40.4 Seconds (25.6-37.1) H 06/30/17 06:25 - Constitutional Appears: No Acute Distress - Head Exam Head Exam: ATRAUMATIC - Eye Exam Eye Exam: absent: Scleral icterus - ENT Exam ENT Exam: Mucous Membranes Moist - Neck Exam Neck Exam: absent: Meningismus - Respiratory Exam Respiratory Exam: absent: Rales, Rhonchi, Wheezes, Respiratory Distress - Cardiovascular Exam Cardiovascular Exam: REGULAR RHYTHM, +S1, +S2 - GI/Abdominal Exam GI & Abdominal Exam: Soft. absent: Tenderness - Rectal Exam Rectal Exam: Deferred - Neurological Exam Neurological Exam: Alert, Oriented x3 - Psychiatric Exam Psychiatric exam: Normal Affect - Skin Skin Exam: Dry, Intact Assessment and Plan - Assessment and Plan (Free Text) Assessment: 82 yo male with history of DVT, Arthritis and BPH sent back from halfway because of pain on left knee. He was discharged to [facility] a month ago after revision was done on the left TKR. Wound culture grew Staph aureus. He was put on IV Cefepime and Vanco which were continued when he was transferred to [facility]. About a week ago as per daughter, patient was lifted and probably injured and dislocated left knee. Patient has been in pain since then. 1. Dislocated Left TKR for possible revision Eliruthis on hold continue Cefepime Vanco trough: 15 continue Vanco 500mg IV q 12hrs 2. DVT Eliquis on hold Lovenox 40mg SC daily hematology consult with Dr Sal appreciated INR: 1.4 3. BPH on Flomax 4. Right Apical Density asymptomatic, no SOB, no chest pain patient already on antibiotics 5. Altered Mental Status still confused; disoriented to time and place neuro consult with Dr Canela appreciated CT scan of the head 6. C Dif Infection C dif antigen positive had 4 episodes of diarrhea Flagyl 500mg PO TID
--- NOTE | 2017-06-30 22:00 | CP.PCM.PN ---
Subjective - Date & Time of Evaluation Date of Evaluation: 06/30/17 Time of Evaluation: 19:35 - Subjective Subjective: No complaints, appears comfortable Objective - Vital Signs/Intake and Output Vital Signs (last 24 hours): Temp Pulse Resp BP Pulse Ox 98 F 11 L 20 118/72 100 06/30/17 16:22 06/30/17 16:22 06/30/17 16:22 06/30/17 16:22 06/30/17 16:22 - Medications Medications: Current Medications Acetaminophen (Tylenol 325mg Tab) 650 mg PO Q6 PRN PRN Reason: Temp >101 Acetaminophen (Tylenol 325mg Tab) 650 mg PO Q4 PRN PRN Reason: Pain, Mild (1-3) Last Admin: 06/29/17 12:48 Dose: 650 mg Artificial Tears (Artificial Tears) 2 drop OU Q4H PRN PRN Reason: Dry eyes Ascorbic Acid (Vitamin C 500 Mg Tab) 500 mg PO DAILY [facility] Last Admin: 06/30/17 11:04 Dose: 500 mg Cholecalciferol (Vitamin D) 1,000 intlu PO DAILY [facility] Last Admin: 06/30/17 11:05 Dose: 1,000 intlu Enoxaparin Sodium (Lovenox) 40 mg SC DAILY [facility] PRN Reason: Protocol Last Admin: 06/30/17 11:03 Dose: 40 mg Haloperidol Lactate (Haldol) 1 mg IM Q6H PRN PRN Reason: Agitation Cefepime HCl 1 gm/ Sodium (Chloride) 100 mls @ 100 mls/hr IVPB Q12 [facility] PRN Reason: Protocol Last Admin: 06/30/17 20:33 Dose: 100 mls/hr Vancomycin HCl 500 mg/ Sodium (Chloride) 100 mls @ 100 mls/hr IVPB Q12 [facility] PRN Reason: Protocol Last Admin: 06/30/17 20:33 Dose: 100 mls/hr Lactobacillus Acidophilus (Bacid Acidophilus) 1 cap PO BID [facility] Last Admin: 06/30/17 16:54 Dose: 1 cap Magnesium Hydroxide (Milk Of Magnesia) 30 ml PO DAILY [facility] PRN Reason: Constipation Metronidazole (Flagyl) 500 mg PO Q8 [facility] PRN Reason: Protocol Last Admin: 06/30/17 16:57 Dose: 500 mg Mirtazapine (Remeron) 7.5 mg PO HS [facility] Last Admin: 06/29/17 21:01 Dose: 7.5 mg Multivitamins/Minerals (Therapeutic-M Tab) 1 tab PO DAILY [facility] Last Admin: 06/30/17 11:04 Dose: 1 tab Quetiapine Fumarate (Seroquel) 25 mg PO DAILY@1600 [facility] Last Admin: 06/30/17 16:54 Dose: 25 mg Tamsulosin HCl (Flomax) 0.4 mg PO DAILY [facility] Last Admin: 06/30/17 11:03 Dose: 0.4 mg - Labs Labs: 06/28/17 05:30 06/28/17 05:30 PT 14.6 Seconds (9.8-13.1) H 06/30/17 06:25 INR 1.3 (0.9-1.2) H 06/30/17 06:25 APTT 40.4 Seconds (25.6-37.1) H 06/30/17 06:25 - Head Exam Head Exam: ATRAUMATIC - Eye Exam Eye Exam: Normal appearance - ENT Exam ENT Exam: Mucous Membranes Dry - Respiratory Exam Respiratory Exam: NORMAL BREATHING PATTERN - Cardiovascular Exam Cardiovascular Exam: +S1, +S2 - GI/Abdominal Exam GI & Abdominal Exam: Normal Bowel Sounds Assessment and Plan (1) Coagulopathy Assessment & Plan: secondary to Eliquis, now on hold since Friday s/p vit K coags improving goal INR < 1.5 for orthopedic surgery Status: Acute (2) Anemia Assessment & Plan: chronic disease Status: Chronic (3) Dvt femoral (deep venous thrombosis) Assessment & Plan: on Eliquis, now on hold restart once cleared by orthopedics Status: Acute
--- NOTE | 2017-07-01 08:14 | CARD ---
APPROVED REPORT EXAM: Two-dimensional and M-mode echocardiogram with Doppler and color Doppler. Other Information Quality : FairRhythm : NSR Technically limited study due to Pt unable to tolerate,and unable to turn for ideal views. INDICATION Pre-Op Mitral Valve E/A ratio0.0 TDI E/Lateral E'0.0E/Medial E'0.0 LEFT VENTRICLE The left ventricle is normal size. There is normal left ventricular wall thickness. Over all LV systolic function preserved. LVEF could not be estimated Individual LV segments could not be visualised. Could not be assesed. RIGHT VENTRICLE The right ventricle is normal size. The right ventricular systolic function is normal. ATRIA The left atrium size is normal. The right atrium size is normal. AORTIC VALVE Poorly seen. No aortic regurgitation is present. There is no aortic valvular stenosis. MITRAL VALVE Poorly seen There is no mitral valve stenosis. Could not be assesed. TRICUSPID VALVE Poorly seen There is no tricuspid valve regurgitation noted. PULMONIC VALVE The pulmonic valve is not visualized. Could not be assesed. GREAT VESSELS The aortic root is normal in size. Due to poor image quality, the IVC could not be assessed. PERICARDIAL EFFUSION The pericardium appears normal. <Conclusion> Study limited by poor echo window and inability of the pt to cooperate during study. The left ventricle is normal size. There is normal left ventricular wall thickness. Over all LV systolic function preserved. LVEF could not be estimated
[2017-07-01] MEDS: Cholecalciferol 1,000 INTLU TAB PO SCH (09:15)
[2017-07-01] MEDS: Multivitamin With Minerals Tab PO SCH (09:15)
[2017-07-01] MEDS: Enoxaparin 40 mg Syringe SC SCH (09:15)
[2017-07-01] MEDS: Cefepime 1 GM in Sodium Chloride 0.9% 100 ML IVPB SCH (09:20)
[2017-07-01] MEDS: Lactobacillus Acidophilus 500 MU Cap PO SCH ×2 (09:20→16:20)
--- NOTE | 2017-07-01 10:34 | CP.PCM.PN ---
Subjective - Date & Time of Evaluation Date of Evaluation: 07/01/17 Time of Evaluation: 10:31 - Subjective Subjective: Appears comfortable. No cough or SOB. Vital signs have been stable, he remains afebrile. Confused and disoriented, but not agitated. Asking me to remove the stitches in his knee. Breath sounds are present bilaterally w/o wheezes or bronchial breath sounds. Few rhonchi in dependant regions of both lungs. Will sign off at this time. Re-call at any time if needed. Thanks. Objective - Vital Signs/Intake and Output Vital Signs (last 24 hours): Temp Pulse Resp BP Pulse Ox 98.6 F 82 18 96/57 L 96 07/01/17 07:54 07/01/17 07:54 07/01/17 07:54 07/01/17 07:54 07/01/17 07:54 - Medications Medications: Current Medications Acetaminophen (Tylenol 325mg Tab) 650 mg PO Q6 PRN PRN Reason: Temp >101 Acetaminophen (Tylenol 325mg Tab) 650 mg PO Q4 PRN PRN Reason: Pain, Mild (1-3) Last Admin: 07/01/17 05:08 Dose: 650 mg Artificial Tears (Artificial Tears) 2 drop OU Q4H PRN PRN Reason: Dry eyes Ascorbic Acid (Vitamin C 500 Mg Tab) 500 mg PO DAILY [facility] Last Admin: 07/01/17 09:15 Dose: 500 mg Cholecalciferol (Vitamin D) 1,000 intlu PO DAILY [facility] Last Admin: 07/01/17 09:15 Dose: 1,000 intlu Haloperidol Lactate (Haldol) 1 mg IM Q6H PRN PRN Reason: Agitation Cefepime HCl 1 gm/ Sodium (Chloride) 100 mls @ 100 mls/hr IVPB Q12 [facility] PRN Reason: Protocol Last Admin: 07/01/17 09:20 Dose: 100 mls/hr Vancomycin HCl 500 mg/ Sodium (Chloride) 100 mls @ 100 mls/hr IVPB Q12 [facility] PRN Reason: Protocol Last Admin: 07/01/17 09:21 Dose: 100 mls/hr Lactobacillus Acidophilus (Bacid Acidophilus) 1 cap PO BID [facility] Last Admin: 07/01/17 09:20 Dose: 1 cap Magnesium Hydroxide (Milk Of Magnesia) 30 ml PO DAILY [facility] PRN Reason: Constipation Metronidazole (Flagyl) 500 mg PO Q8 [facility] PRN Reason: Protocol Last Admin: 07/01/17 09:20 Dose: 500 mg Mirtazapine (Remeron) 7.5 mg PO HS [facility] Last Admin: 06/30/17 22:02 Dose: 7.5 mg Multivitamins/Minerals (Therapeutic-M Tab) 1 tab PO DAILY [facility] Last Admin: 07/01/17 09:15 Dose: 1 tab Quetiapine Fumarate (Seroquel) 25 mg PO DAILY@1600 [facility] Last Admin: 06/30/17 16:54 Dose: 25 mg Tamsulosin HCl (Flomax) 0.4 mg PO DAILY [facility] Last Admin: 07/01/17 09:15 Dose: 0.4 mg - Labs Labs: 06/28/17 05:30 06/28/17 05:30 PT 14.6 Seconds (9.8-13.1) H 06/30/17 06:25 INR 1.3 (0.9-1.2) H 06/30/17 06:25 APTT 40.4 Seconds (25.6-37.1) H 06/30/17 06:25 Assessment and Plan (1) Pulmonary infiltrate in right lung on chest x-ray Status: Suspected
--- NOTE | 2017-07-01 13:37 | CP.PCM.PN ---
Subjective - Date & Time of Evaluation Date of Evaluation: 07/01/17 Time of Evaluation: 12:45 - Subjective Subjective: Pt has no fever had diarrhea yesterday - Stool came back + for C diff pt states Ensure gives him more diarrhea denies abd pain no CP no SOB left knee pain controlled with Ultram Objective - Vital Signs/Intake and Output Vital Signs (last 24 hours): Temp Pulse Resp BP Pulse Ox 98.6 F 82 18 96/57 L 96 07/01/17 07:54 07/01/17 07:54 07/01/17 07:54 07/01/17 07:54 07/01/17 07:54 - Medications Medications: Current Medications Acetaminophen (Tylenol 325mg Tab) 650 mg PO Q6 PRN PRN Reason: Temp >101 Acetaminophen (Tylenol 325mg Tab) 650 mg PO Q4 PRN PRN Reason: Pain, Mild (1-3) Last Admin: 07/01/17 05:08 Dose: 650 mg Artificial Tears (Artificial Tears) 2 drop OU Q4H PRN PRN Reason: Dry eyes Ascorbic Acid (Vitamin C 500 Mg Tab) 500 mg PO DAILY [facility] Last Admin: 07/01/17 09:15 Dose: 500 mg Cholecalciferol (Vitamin D) 1,000 intlu PO DAILY [facility] Last Admin: 07/01/17 09:15 Dose: 1,000 intlu Haloperidol Lactate (Haldol) 1 mg IM Q6H PRN PRN Reason: Agitation Cefepime HCl 1 gm/ Sodium (Chloride) 100 mls @ 100 mls/hr IVPB Q12 [facility] PRN Reason: Protocol Last Admin: 07/01/17 09:20 Dose: 100 mls/hr Vancomycin HCl 500 mg/ Sodium (Chloride) 100 mls @ 100 mls/hr IVPB Q12 [facility] PRN Reason: Protocol Last Admin: 07/01/17 09:21 Dose: 100 mls/hr Lactobacillus Acidophilus (Bacid Acidophilus) 1 cap PO BID [facility] Last Admin: 07/01/17 09:20 Dose: 1 cap Magnesium Hydroxide (Milk Of Magnesia) 30 ml PO DAILY [facility] PRN Reason: Constipation Metronidazole (Flagyl) 500 mg PO Q8 [facility] PRN Reason: Protocol Last Admin: 07/01/17 09:20 Dose: 500 mg Mirtazapine (Remeron) 7.5 mg PO HS [facility] Last Admin: 06/30/17 22:02 Dose: 7.5 mg Multivitamins/Minerals (Therapeutic-M Tab) 1 tab PO DAILY [facility] Last Admin: 07/01/17 09:15 Dose: 1 tab Quetiapine Fumarate (Seroquel) 25 mg PO DAILY@1600 [facility] Last Admin: 06/30/17 16:54 Dose: 25 mg Tamsulosin HCl (Flomax) 0.4 mg PO DAILY [facility] Last Admin: 07/01/17 09:15 Dose: 0.4 mg Tramadol HCl (Ultram) 50 mg PO Q6 PRN PRN Reason: Pain, moderate (4-7) - Labs Labs: 06/28/17 05:30 06/28/17 05:30 PT 14.6 Seconds (9.8-13.1) H 06/30/17 06:25 INR 1.3 (0.9-1.2) H 06/30/17 06:25 APTT 40.4 Seconds (25.6-37.1) H 06/30/17 06:25 - Constitutional Appears: No Acute Distress, Chronically Ill - Head Exam Head Exam: NORMAL INSPECTION, NORMOCEPHALIC - Eye Exam Eye Exam: EOMI, Normal appearance Pupil Exam: NORMAL ACCOMODATION - ENT Exam ENT Exam: Mucous Membranes Moist, Normal External Ear Exam - Neck Exam Neck Exam: Full ROM. absent: Meningismus - Respiratory Exam Respiratory Exam: Rhonchi, NORMAL BREATHING PATTERN. absent: Respiratory Distress - Cardiovascular Exam Cardiovascular Exam: REGULAR RHYTHM, +S1, +S2 - GI/Abdominal Exam GI & Abdominal Exam: Soft, Normal Bowel Sounds. absent: Tenderness - Extremities Exam Extremities Exam: Normal Capillary Refill. absent: Calf Tenderness Additional comments: left knee with immobilizer - Back Exam Back Exam: Full ROM. absent: CVA tenderness (L), CVA tenderness (R) - Neurological Exam Neurological Exam: Alert, Awake Additional comments: oriented to person and place - Psychiatric Exam Psychiatric exam: Flat Affect - Skin Skin Exam: Dry, Normal Color, Warm Assessment and Plan - Assessment and Plan (Free Text) Assessment: 82 yo male with history of DVT, Arthritis and BPH sent back from halfway because of pain on left knee. He was discharged to [facility] a month ago after revision was done on the left TKR. Wound culture grew Staph aureus. He was put on IV Cefepime and Vanco which were continued when he was transferred to [facility]. About a week ago as per daughter, patient was lifted and probably injured and dislocated left knee. Patient has been in pain since then. 1. Dislocated Left TKR, Hx of previous TKR Hx of previous MRSA in Wound rpt Wound c/s: no growth so far for surgery in am continue Cefepime and Vanco IV Dr Vaughn following pt Vanco trough: 15 rpt labs in am, Type and Cross 2. DVT Eliquis on hold Lovenox 40mg SC daily- hold Lovenox for now -plan for surgery in am hematology consult with Dr Sal appreciated 3. BPH on Flomax 4. Right Apical Density seen on CXR asymptomatic, no SOB, no chest pain Pulmonary consulted CT of chest : WILEY scarring, atelectasis, small pleural effusion Pt on abx 5. Altered Mental Status ? Delirium episodes of confusion neuro consult with Dr Canela appreciated CT scan of the head: neg 6. C Diff Infection C diff antigen positive had 4 episodes of diarrhea Flagyl 500mg PO TID 7. Coagulopathy INR and PTT sl elevated off Eliquis Lovenox d/c received Vit K Hematology following pt- per Dr Sal ok for Surgeryas long as INR less than 1.5
--- NOTE | 2017-07-01 15:30 | CP.PCM.PN ---
Subjective - Date & Time of Evaluation Date of Evaluation: 07/01/17 Time of Evaluation: 15:28 - Subjective Subjective: Patient seen and examined at bedside comfortable. Pain controlled. Traci diet. No acute events overnight. Objective - Vital Signs/Intake and Output Vital Signs (last 24 hours): Temp Pulse Resp BP Pulse Ox 98.6 F 82 18 96/57 L 96 07/01/17 07:54 07/01/17 07:54 07/01/17 07:54 07/01/17 07:54 07/01/17 07:54 - Medications Medications: Current Medications Acetaminophen (Tylenol 325mg Tab) 650 mg PO Q6 PRN PRN Reason: Temp >101 Acetaminophen (Tylenol 325mg Tab) 650 mg PO Q4 PRN PRN Reason: Pain, Mild (1-3) Last Admin: 07/01/17 05:08 Dose: 650 mg Artificial Tears (Artificial Tears) 2 drop OU Q4H PRN PRN Reason: Dry eyes Ascorbic Acid (Vitamin C 500 Mg Tab) 500 mg PO DAILY [facility] Last Admin: 07/01/17 09:15 Dose: 500 mg Cholecalciferol (Vitamin D) 1,000 intlu PO DAILY [facility] Last Admin: 07/01/17 09:15 Dose: 1,000 intlu Haloperidol Lactate (Haldol) 1 mg IM Q6H PRN PRN Reason: Agitation Cefepime HCl 1 gm/ Sodium (Chloride) 100 mls @ 100 mls/hr IVPB Q12 [facility] PRN Reason: Protocol Last Admin: 07/01/17 09:20 Dose: 100 mls/hr Vancomycin HCl 500 mg/ Sodium (Chloride) 100 mls @ 100 mls/hr IVPB Q12 [facility] PRN Reason: Protocol Last Admin: 07/01/17 09:21 Dose: 100 mls/hr Lactobacillus Acidophilus (Bacid Acidophilus) 1 cap PO BID [facility] Last Admin: 07/01/17 09:20 Dose: 1 cap Magnesium Hydroxide (Milk Of Magnesia) 30 ml PO DAILY PRN PRN Reason: Constipation Metronidazole (Flagyl) 500 mg PO Q8 [facility] PRN Reason: Protocol Last Admin: 07/01/17 09:20 Dose: 500 mg Mirtazapine (Remeron) 7.5 mg PO HS [facility] Last Admin: 06/30/17 22:02 Dose: 7.5 mg Multivitamins/Minerals (Therapeutic-M Tab) 1 tab PO DAILY [facility] Last Admin: 07/01/17 09:15 Dose: 1 tab Quetiapine Fumarate (Seroquel) 25 mg PO DAILY@1600 [facility] Last Admin: 06/30/17 16:54 Dose: 25 mg Tamsulosin HCl (Flomax) 0.4 mg PO DAILY [facility] Last Admin: 07/01/17 09:15 Dose: 0.4 mg Tramadol HCl (Ultram) 50 mg PO Q6 PRN PRN Reason: Pain, moderate (4-7) - Labs Labs: 06/28/17 05:30 06/28/17 05:30 PT 14.6 Seconds (9.8-13.1) H 06/30/17 06:25 INR 1.3 (0.9-1.2) H 06/30/17 06:25 APTT 40.4 Seconds (25.6-37.1) H 06/30/17 06:25 - Extremities Exam Additional comments: LLE: Knee immobilizer intact. + knee deformity. + swelling. midline incision intact with martir. sensation intact SP/DP/TN. Motor intact EHL/FHL. pedal pulses intact. calves soft/NT b/l Assessment and Plan (1) Left knee dislocation Assessment & Plan: Patient is an 82 y/o M with left knee abx spacer dislocation. -medical clearance appreciated -NPO pMN -pain control -keep knee imm on at all times -OR desean AM for closed vs. open reduction of knee dislocation -case and plan discussed in agreement with Dr. Ann Status: Acute
--- NOTE | 2017-07-01 19:53 | PN ---
DATE: SUBJECTIVE: The patient is less agitate today. He is experiencing diarrhea positive for C. diff and PICC line was placed, on isolation. No reported hypotension or shortness of breath. PHYSICAL EXAMINATION: VITAL SIGNS: Blood pressure of 96/57, heart rate of 82, temperature of 98.6, and respirations of 18. HEENT: Pale conjunctivae. CHEST: Clear. HEART: S1 and S2 regular. EXTREMITIES: No edema. LABORATORY DATA: C. diff antigen and toxin are positive as of yesterday. Official echocardiographic study report, normal left ventricular size, wall thickness, and overall systolic function. ASSESSMENT: 1. 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 2. Clostridium difficile colitis. 3. Bilateral basal ganglia lacunar infarcts. 4. 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 RECOMMENDATIONS: Continue cefepime 1 g intravenously q.12 hours, Remeron 7.5 mg once a day, Seroquel 25 mg daily, and vancomycin 500 mg intravenously q.12 hours. The patient can undergo knee surgery from the cardiac point of view, which was telemetry or ICU monitoring depending on the outcome. Liban Oliveira MD
--- NOTE | 2017-07-01 22:39 | CP.PCM.PN ---
Subjective - Date & Time of Evaluation Date of Evaluation: 07/01/17 Time of Evaluation: 18:15 - Subjective Subjective: No complaints. Objective - Vital Signs/Intake and Output Vital Signs (last 24 hours): Temp Pulse Resp BP Pulse Ox 98.3 F 76 20 93/56 L 98 07/01/17 16:39 07/01/17 16:39 07/01/17 16:39 07/01/17 16:39 07/01/17 16:39 - Medications Medications: Current Medications Acetaminophen (Tylenol 325mg Tab) 650 mg PO Q6 PRN PRN Reason: Temp >101 Acetaminophen (Tylenol 325mg Tab) 650 mg PO Q4 PRN PRN Reason: Pain, Mild (1-3) Last Admin: 07/01/17 05:08 Dose: 650 mg Artificial Tears (Artificial Tears) 2 drop OU Q4H PRN PRN Reason: Dry eyes Last Admin: 07/01/17 16:21 Dose: 2 drop Ascorbic Acid (Vitamin C 500 Mg Tab) 500 mg PO DAILY [facility] Last Admin: 07/01/17 09:15 Dose: 500 mg Cholecalciferol (Vitamin D) 1,000 intlu PO DAILY [facility] Last Admin: 07/01/17 09:15 Dose: 1,000 intlu Haloperidol Lactate (Haldol) 1 mg IM Q6H PRN PRN Reason: Agitation Vancomycin HCl 500 mg/ Sodium (Chloride) 100 mls @ 100 mls/hr IVPB Q12 [facility] PRN Reason: Protocol Last Admin: 07/01/17 21:35 Dose: Not Given Metronidazole (Flagyl 500mg/100ml Ns) 100 mls @ 100 mls/hr IVPB Q8 [facility] PRN Reason: Protocol Lactobacillus Acidophilus (Bacid Acidophilus) 1 cap PO BID [facility] Last Admin: 07/01/17 16:20 Dose: 1 cap Magnesium Hydroxide (Milk Of Magnesia) 30 ml PO DAILY PRN PRN Reason: Constipation Mirtazapine (Remeron) 7.5 mg PO HS [facility] Last Admin: 07/01/17 22:07 Dose: 7.5 mg Multivitamins/Minerals (Therapeutic-M Tab) 1 tab PO DAILY [facility] Last Admin: 07/01/17 09:15 Dose: 1 tab Quetiapine Fumarate (Seroquel) 25 mg PO DAILY@1600 [facility] Last Admin: 07/01/17 16:21 Dose: 25 mg Tamsulosin HCl (Flomax) 0.4 mg PO DAILY [facility] Last Admin: 07/01/17 09:15 Dose: 0.4 mg Tramadol HCl (Ultram) 50 mg PO Q6 PRN PRN Reason: Pain, moderate (4-7) - Labs Labs: 06/28/17 05:30 06/28/17 05:30 PT 14.6 Seconds (9.8-13.1) H 06/30/17 06:25 INR 1.3 (0.9-1.2) H 06/30/17 06:25 APTT 40.4 Seconds (25.6-37.1) H 06/30/17 06:25 - Head Exam Head Exam: ATRAUMATIC - Eye Exam Eye Exam: Normal appearance - ENT Exam ENT Exam: Mucous Membranes Dry - Respiratory Exam Respiratory Exam: NORMAL BREATHING PATTERN - Cardiovascular Exam Cardiovascular Exam: +S1, +S2 - GI/Abdominal Exam GI & Abdominal Exam: Normal Bowel Sounds Assessment and Plan (1) Coagulopathy Assessment & Plan: secondary to Eliquis; has been on hold nutritional component, s/p vit k improving no lovenox prophylaxis tomorrow repeat coags in AM Status: Acute (2) Anemia Assessment & Plan: chronic disease Status: Chronic (3) Dvt femoral (deep venous thrombosis) Assessment & Plan: resume Eliquis once cleared by orthopedics Status: Acute
[2017-07-02] MEDS ORDERED: Sodium Chloride 0.9% 1,000 ML IV SCH (01:00)
[2017-07-02] MEDS: metroNIDAZOLE 500mg/100ml NS 100 ML IVPB SCH ×3 (01:01→09:01)
[2017-07-02 06:37] LABS: HEMOGLOBIN 9.1 g/dL (12.0-18.0); MEAN CELL VOLUME 88.6 fl (80.0-94.0); MEAN CORPUSCULAR HEMOGLOBIN 29.8 pg (27.0-31.0); MEAN CORPUSCULAR HGB CONC 33.7 g/dL (33.0-37.0); RBC 3.05 Mil/uL (4.40-5.90); RED CELL DISTRIBUTION WIDTH 16.1 % (11.5-14.5); WHITE BLOOD COUNT 5.3 K/uL (4.8-10.8)
[2017-07-02 06:44] LABS: INR 1.3 (0.9-1.2); PARTIAL THROMBOPLASTIN TIME 38.4 Seconds (25.6-37.1)
[2017-07-02 06:51] LABS: BLOOD UREA NITROGEN 16 mg/dl (9-20); CALCIUM 7.8 mg/dL (8.4-10.2); GFR AFRICAN-AMERICAN > 60; GFR NON-AFRICAN AMERICAN > 60
[2017-07-02] MEDS ORDERED: Bupivacaine HCl/Epi 0.5% 1:20000 30 ML SOL IJ ONE (07:08)
[2017-07-02] MEDS ORDERED: Lidocaine 4% (Laryng-O-Jet) Kit MM ONE (07:14)
[2017-07-02] MEDS ORDERED: Rocuronium 10 mg/ml (5 ml) ONE (07:14)
[2017-07-02] MEDS ORDERED: Succinylcholine 200 mg/10 ml Inj IV ONE (07:14)
[2017-07-02] MEDS ORDERED: Etomidate 20 mg/10ml Inj IV ONE (07:15)
[2017-07-02] MEDS ORDERED: Bupivacaine 0.5% Inj(30mL) ONE (07:27)
[2017-07-02] MEDS ORDERED: Lidocaine 1% Inj (20ml) ONE (07:27)
[2017-07-02] MEDS ORDERED: Bacitracin Ointment 30 GM TUBE ONE (07:27)
[2017-07-02] MEDS ORDERED: Absorbable Gelatin Sponge Size 100 ONE (07:27)
[2017-07-02] MEDS ORDERED: Thrombin Topical 5,000 Int Units Spray Kit ONE (07:28)
[2017-07-02] MEDS ORDERED: Lactated Ringer's 1,000 ML IV ONE (07:40)
[2017-07-02] MEDS ORDERED: HYDROmorphone 0.5 mg/0.5 ml ISec IVP PRN (08:36)
--- NOTE | 2017-07-02 08:40 | PCM.ANESB3 ---
Femoral Nerve Block - Femoral Nerve Block Date of Procedure: 07/02/17 Anesthesiologist: Delmy Pre-Procedure Diagnosis: dislocated left TKA Post-Procedure Diagnosis: same Procedure Performed: Femoral Nerve Block Left - Procedure Femoral Nerve Block: The procedure was explained to the patient that it is for the post-operative pain management. Consent was obtained after a thorough discussion with the patient regarding the benefits and possible complications of local anesthetic block of the femoral nerve at the inguinal crease area. The patient was brought to the operating room and standard monitors were applied. Time-out was held with the circulating nurse to confirm the correct surgery and the appropriate block. Under general anesthesia, patient was placed in supine position with fully extended lower extremities and the ____right____ groin exposed. The femoral artery was then carefully palpated. The ultrasound transducer was then applied to this area in the transverse plane and the femoral nerve was visualized lateral to the femoral artery and underneath the fascia iliaca. After thorough identification, the inguinal crease area was prepped with Chloraprep. At this point, a #22 gauge Stimuplex 2-inch needle was inserted immediately lateral to the femoral artery pulse at the inguinal crease and advanced perpendicularly. The needle was inserted to the ultrasound transducer in-plane towards the femoral nerve in a [id number] direction. Needle advancement was performed carefully under direct ultrasound visualization. Nerve stimulator was used and twitch of the quadriceps muscle was obtained at current of _0.4____ MA. After negative aspiration, __2___cc of __0.375___% ___bupivicaine with 1:200 ,000 epinephrine was injected and this was followed with _ cc of % . Under ultrasound guidance the local anesthetics were observed spreading below fascia iliaca and around the femoral nerve. The needle was removed intact . The patient had stable vital signs. The patient tolerated the femoral nerve block well with stable vital signs and was prepared for subsequent surgery.
--- NOTE | 2017-07-02 08:42 | PCM.ANESB2 ---
Popliteal Nerve Block - Popliteal Nerve Block Date of Procedure: 07/02/17 Anesthesiologist: Delmy Pre-Procedure Diagnosis: Dislocated left TKA Post-Procedure Diagnosis: Same Procedure Performed: Popliteal Nerve Block Left - Procedure Popliteal Nerve Block: This procedure was explained to the patient that it is for post-operative pain management. Consent was obtained after a thorough discussion with the patient regarding the benefits and possible complications of local anesthetic block of the sciatic nerve at the popliteal level. The patient was brought to the operating room and standard monitors are applied. Time-out was held with the circulating nurse to confirm the correct surgery and the appropriate block. Under general anesthesia, patient's operative leg was gently raised and supported and the groove in between the biceps femoris and vastus lateralis muscles was carefully palpated. The skin approximately 8cm above the popliteal crease was then marked. The ultrasound transducer was then applied to the posterior thigh approximately 8cm above the popliteal crease in the transverse plane and the sciatic nerve before its division was visualized lateral to the popliteal artery and in between the bicep femoris and semimembranosus/ semitendinosus muscles. After identification, the lateral portion of the thigh was prepped withChloraprep. At this point, a # 21 gauge Stimuplex insulated 4 inch needle was inserted into pre-marked area and advanced in a perpendicular direction. The needle was inserted above the ultrasound transducer in-plane towards the sciatic nerve in a [id number] direction. Needle advancement was performed carefully under direct ultrasound visualization. Nerve stimulator was used and dorsiflexion of the __left___ foot was elicited at a current of __0.4___ MA. After repeated negative aspiration, __2___cc of __0.375___ % ___bupivicaine with 1:200,000 epinephrine was injected and this was flowed with __18____ cc of __ 0.375____% ____bupivicaine with 1:200,000 epinephrine . Under ultrasound guidance the local anesthetics were observed surrounding sciatic nerve . The needle was removed intact and sterile dressing was applied. The patient tolerated the popliteal nerve block well with stable vital signs and was subsequently prepared for the surgery.
--- NOTE | 2017-07-02 08:47 | PCM.SURG1 ---
Surgeon's Initial Post Op Note - Surgeon's Notes Surgeon: Stevan Ann MD Sewer Head: Hmuza Kiser PA-C Type of Anesthesia: General Endo Anesthesia Administered By: Carbonello Pre-Operative Diagnosis: Left knee dislocated antibiotic spacer, s/p left total knee explant Operative Findings: Left dislocated knee antibiotic spacer Post-Operative Diagnosis: Left knee dislocated antibiotic spacer, s/p left knee explant Operation Performed: Left knee antibiotic spacer dislocation reduction, application of long leg cast Specimen/Specimens Removed: none Estimated Blood Loss: EBL {In ML}: 0 Blood Products Given: N/A Drains Used: No Drains Post-Op Condition: Good Date of Surgery/Procedure: 07/02/17 Time of Surgery/Procedure: 08:00 (Start time 07:40)
[2017-07-02] MEDS: Lactobacillus Acidophilus 500 MU Cap PO SCH ×2 (09:00→16:59)
[2017-07-02] MEDS: Multivitamin With Minerals Tab PO SCH ×2 (09:00→16:59)
[2017-07-02] MEDS: Cholecalciferol 1,000 INTLU TAB PO SCH ×2 (09:00→16:59)
--- NOTE | 2017-07-02 10:13 | RAD ---
PROCEDURE: Left Knee Radiographs. HISTORY: Pain. COMPARISON: Left knee radiographs 06/27/2017 prior FINDINGS: BONES: Total left knee arthroplasty again appreciated with prior dislocation now reduced. Lateral compartment joint space is questionably somewhat widened in the lateral view but this is not apparent in the frontal view. Further clinical correlation advised. Skin martir are again seen anteriorly with local soft tissue edema mildly appreciated surrounding the knee. No fracture, subluxation or dislocation appreciated. JOINTS: As above. JOINT EFFUSION: Limited suprasellar portion of effusion suggest suspected. OTHER FINDINGS: None. IMPRESSION: Status post reduction of dislocated tibia and fibula with no interval fracture appreciable. Adequate reduction is been achieved with local soft tissue edema appreciated including limited possible suprapatellar bursa effusion. Note there is questionable lateral compartment joint space widening in the lateral view not seen in the frontal view. Clinically correlate further.
--- NOTE | 2017-07-02 10:52 | CP.PCM.PN ---
Subjective - Date & Time of Evaluation Date of Evaluation: 07/02/17 Time of Evaluation: 10:43 - Subjective Subjective: I D NOTE PATIENT HAD CLOSED REDUCTION TODAY VANCOMYCIN TROUGH IS 15,HAVE ORDERED RANDOM LEVEL,IF CONTINUES TO BE HIGH (>10),WILL D/C RANDOM LEVEL OF VANCOMYCIN IS 13 HAVE DISCONTINUED VANCOMYCIN AND WILL ORDER DIFFERENT ANTI STAPHYLOCOCCAL ANTIBIOTIC. THE PROBLEM C THIS WILL BE WHEN TRANSFERRED TO [facility] IN REGARD TO COST DISCUSSED C AND ORDERED ZYVOX PO (600 MG PO BID). PICC NOT FUNCTIONING,NO NEED TO REPLACE AT THIS TIME WILL NEED WHEN NEW HARDWARE IS PLACED ALSO HAVE ORDERED F/U C.DIFF Objective - Vital Signs/Intake and Output Vital Signs (last 24 hours): Temp Pulse Resp BP Pulse Ox 98.6 F 81 20 109/73 97 07/02/17 10:25 07/02/17 10:25 07/02/17 10:25 07/02/17 10:25 07/02/17 10:25 Intake and Output: 07/02/17 07/02/17 06:59 18:59 Intake Total 700 Balance 700 - Medications Medications: Current Medications Acetaminophen (Tylenol 325mg Tab) 650 mg PO Q6 PRN PRN Reason: Temp >101 Acetaminophen (Tylenol 325mg Tab) 650 mg PO Q4 PRN PRN Reason: Pain, Mild (1-3) Last Admin: 07/01/17 05:08 Dose: 650 mg Artificial Tears (Artificial Tears) 2 drop OU Q4H PRN PRN Reason: Dry eyes Last Admin: 07/01/17 16:21 Dose: 2 drop Ascorbic Acid (Vitamin C 500 Mg Tab) 500 mg PO DAILY [facility] Last Admin: 07/02/17 09:00 Dose: Not Given Cholecalciferol (Vitamin D) 1,000 intlu PO DAILY [facility] Last Admin: 07/02/17 09:00 Dose: Not Given Haloperidol Lactate (Haldol) 1 mg IM Q6H PRN PRN Reason: Agitation Hydromorphone HCl (Dilaudid) 2 mg IVP Q4 PRN PRN Reason: Pain, severe (8-10) Last Admin: 07/02/17 10:37 Dose: 2 mg Vancomycin HCl 500 mg/ Sodium (Chloride) 100 mls @ 100 mls/hr IVPB Q12 [facility] PRN Reason: Protocol Last Admin: 07/02/17 09:01 Dose: Not Given Metronidazole (Flagyl 500mg/100ml Ns) 100 mls @ 100 mls/hr IVPB Q8 [facility] PRN Reason: Protocol Last Admin: 07/02/17 09:01 Dose: Not Given Sodium Chloride (Sodium Chloride 0.9%) 1,000 mls @ 60 mls/hr IV .[id number] [facility] Stop: 07/03/17 00:53 Last Admin: 07/02/17 01:00 Dose: 60 mls/hr Lactated Ringer's (Lactated Ringer's) 1,000 mls @ 100 mls/hr IV .Q10H [facility] Lactobacillus Acidophilus (Bacid Acidophilus) 1 cap PO BID [facility] Last Admin: 07/02/17 09:00 Dose: Not Given Magnesium Hydroxide (Milk Of Magnesia) 30 ml PO DAILY PRN PRN Reason: Constipation Mirtazapine (Remeron) 7.5 mg PO HS [facility] Last Admin: 07/01/17 22:07 Dose: 7.5 mg Multivitamins/Minerals (Therapeutic-M Tab) 1 tab PO DAILY [facility] Last Admin: 07/02/17 09:00 Dose: Not Given Ondansetron HCl (Zofran Inj) 4 mg IVP ONCE PRN PRN Reason: Nausea/Vomiting Quetiapine Fumarate (Seroquel) 25 mg PO DAILY@1600 [facility] Last Admin: 07/01/17 16:21 Dose: 25 mg Tamsulosin HCl (Flomax) 0.4 mg PO DAILY [facility] Last Admin: 07/02/17 09:00 Dose: Not Given Tramadol HCl (Ultram) 50 mg PO Q6 PRN PRN Reason: Pain, moderate (4-7) - Labs Labs: 07/02/17 06:00 07/02/17 06:00 PT 15.0 Seconds (9.8-13.1) H 07/02/17 06:00 INR 1.3 (0.9-1.2) H 07/02/17 06:00 APTT 38.4 Seconds (25.6-37.1) H 07/02/17 06:00
--- NOTE | 2017-07-02 11:30 | CP.PCM.PN ---
Subjective - Date & Time of Evaluation Date of Evaluation: 07/02/17 Time of Evaluation: 10:45 - Subjective Subjective: Pt seen post op in PACU, daughter at bedside s/p Closed Reduction of Dislocated knee Long leg acst placed Pt is lethargic No fever Pulled out his PICC line accdg to RN Objective - Vital Signs/Intake and Output Vital Signs (last 24 hours): Temp Pulse Resp BP Pulse Ox 98.3 F 76 20 93/57 L 97 07/02/17 10:52 07/02/17 10:52 07/02/17 10:52 07/02/17 10:52 07/02/17 10:52 Intake and Output: 07/02/17 07/02/17 06:59 18:59 Intake Total 700 Balance 700 - Medications Medications: Current Medications Acetaminophen (Tylenol 325mg Tab) 650 mg PO Q6 PRN PRN Reason: Temp >101 Acetaminophen (Tylenol 325mg Tab) 650 mg PO Q4 PRN PRN Reason: Pain, Mild (1-3) Last Admin: 07/01/17 05:08 Dose: 650 mg Artificial Tears (Artificial Tears) 2 drop OU Q4H PRN PRN Reason: Dry eyes Last Admin: 07/01/17 16:21 Dose: 2 drop Ascorbic Acid (Vitamin C 500 Mg Tab) 500 mg PO DAILY [facility] Last Admin: 07/02/17 09:00 Dose: Not Given Cholecalciferol (Vitamin D) 1,000 intlu PO DAILY [facility] Last Admin: 07/02/17 09:00 Dose: Not Given Haloperidol Lactate (Haldol) 1 mg IM Q6H PRN PRN Reason: Agitation Hydromorphone HCl (Dilaudid) 2 mg IVP Q4 PRN PRN Reason: Pain, severe (8-10) Last Admin: 07/02/17 10:37 Dose: 2 mg Vancomycin HCl 500 mg/ Sodium (Chloride) 100 mls @ 100 mls/hr IVPB Q12 [facility] PRN Reason: Protocol Last Admin: 07/02/17 09:01 Dose: Not Given Sodium Chloride (Sodium Chloride 0.9%) 1,000 mls @ 60 mls/hr IV .[id number] [facility] Stop: 07/03/17 00:53 Last Admin: 07/02/17 01:00 Dose: 60 mls/hr Lactated Ringer's (Lactated Ringer's) 1,000 mls @ 100 mls/hr IV .Q10H [facility] Lactobacillus Acidophilus (Bacid Acidophilus) 1 cap PO BID [facility] Last Admin: 07/02/17 09:00 Dose: Not Given Magnesium Hydroxide (Milk Of Magnesia) 30 ml PO DAILY PRN PRN Reason: Constipation Metronidazole (Flagyl) 500 mg PO Q8 [facility] PRN Reason: Protocol Mirtazapine (Remeron) 7.5 mg PO HS [facility] Last Admin: 07/01/17 22:07 Dose: 7.5 mg Multivitamins/Minerals (Therapeutic-M Tab) 1 tab PO DAILY [facility] Last Admin: 07/02/17 09:00 Dose: Not Given Ondansetron HCl (Zofran Inj) 4 mg IVP ONCE PRN PRN Reason: Nausea/Vomiting Quetiapine Fumarate (Seroquel) 25 mg PO DAILY@1600 [facility] Last Admin: 07/01/17 16:21 Dose: 25 mg Tamsulosin HCl (Flomax) 0.4 mg PO DAILY [facility] Last Admin: 07/02/17 09:00 Dose: Not Given Tramadol HCl (Ultram) 50 mg PO Q6 PRN PRN Reason: Pain, moderate (4-7) - Labs Labs: 07/02/17 06:00 07/02/17 06:00 PT 15.0 Seconds (9.8-13.1) H 07/02/17 06:00 INR 1.3 (0.9-1.2) H 07/02/17 06:00 APTT 38.4 Seconds (25.6-37.1) H 07/02/17 06:00 - Constitutional Appears: No Acute Distress, Chronically Ill - Head Exam Head Exam: NORMAL INSPECTION, NORMOCEPHALIC - Eye Exam Eye Exam: EOMI, Normal appearance Pupil Exam: NORMAL ACCOMODATION - ENT Exam ENT Exam: Mucous Membranes Moist, Normal External Ear Exam - Neck Exam Neck Exam: Full ROM. absent: Meningismus - Respiratory Exam Respiratory Exam: Rhonchi, NORMAL BREATHING PATTERN. absent: Respiratory Distress - Cardiovascular Exam Cardiovascular Exam: REGULAR RHYTHM, +S1, +S2 - GI/Abdominal Exam GI & Abdominal Exam: Soft, Normal Bowel Sounds. absent: Tenderness - Extremities Exam Extremities Exam: Normal Capillary Refill. absent: Calf Tenderness Left leg with long leg cast - Back Exam Back Exam: Full ROM. absent: CVA tenderness (L), CVA tenderness (R) - Neurological Exam Neurological Exam: lethargic ( pt seen in PACU post op) - Psychiatric Exam Psychiatric exam: Flat Affect - Skin Skin Exam: Dry, Normal Color, Warm Assessment and Plan - Assessment and Plan (Free Text) Assessment: 82 yo male with history of DVT, Arthritis and BPH sent back from senior care because of pain on left knee. He was discharged to [facility] a month ago after revision was done on the left TKR. Wound culture grew Staph aureus. He was put on IV Cefepime and Vanco which were [facility]. About a week ago as per daughter, patient was lifted and probably injured and dislocated left knee. Patient has been in pain since then. 07/02: pt went for Closed Reduction of Dislocated knee and placement of Antibiotic spacer 1. Dislocated Left TKR, Hx of previous TKR Hx of previous MRSA in Wound s/p Closed Reduction, Placement of antibiotic Spacer and Long Leg Cast rpt Wound c/s: no growth so far Pt was on IV Vanco and Cefepime ( d/c today) -changed to PO Zyvox today by Dr Vaughn Pt pulled out his PICC line Plan for d/c back to [facility] in am 2. DVT Eliquis on hold for surgery - will restart Eliquis in am Hematology - Dr Sal following pt 3. BPH on Flomax 4. Right Apical Density seen on CXR asymptomatic, no SOB, no chest pain Pulmonary consulted CT of chest : WILEY scarring, atelectasis, small pleural effusion Pt on abx 5. Altered Mental Status ? Delirium episodes of confusion neuro consulted - Dr Canela CT scan of the head: neg 6. C Diff Infection C diff antigen positive had 4 episodes of diarrhea cont Flagyl 500mg PO TID 7. Coagulopathy INR and PTT sl elevated received Vit K Hematology following pt
--- NOTE | 2017-07-02 15:35 | CP.PCM.PN ---
Subjective - Date & Time of Evaluation Date of Evaluation: 07/02/17 Time of Evaluation: 12:30 - Subjective Subjective: S/p orthopedic surgery Objective - Vital Signs/Intake and Output Vital Signs (last 24 hours): Temp Pulse Resp BP Pulse Ox 98.5 F 75 20 95/46 L 95 07/02/17 14:22 07/02/17 14:22 07/02/17 14:22 07/02/17 14:22 07/02/17 14:22 Intake and Output: 07/02/17 07/02/17 06:59 18:59 Intake Total 700 Balance 700 - Medications Medications: Current Medications Acetaminophen (Tylenol 325mg Tab) 650 mg PO Q6 PRN PRN Reason: Temp >101 Acetaminophen (Tylenol 325mg Tab) 650 mg PO Q4 PRN PRN Reason: Pain, Mild (1-3) Last Admin: 07/01/17 05:08 Dose: 650 mg Artificial Tears (Artificial Tears) 2 drop OU Q4H PRN PRN Reason: Dry eyes Last Admin: 07/01/17 16:21 Dose: 2 drop Ascorbic Acid (Vitamin C 500 Mg Tab) 500 mg PO DAILY [facility] Last Admin: 07/02/17 09:00 Dose: Not Given Cholecalciferol (Vitamin D) 1,000 intlu PO DAILY [facility] Last Admin: 07/02/17 09:00 Dose: Not Given Hydromorphone HCl (Dilaudid) 2 mg IVP Q4 PRN PRN Reason: Pain, severe (8-10) Last Admin: 07/02/17 10:37 Dose: 2 mg Sodium Chloride (Sodium Chloride 0.9%) 1,000 mls @ 60 mls/hr IV .[id number] [facility] Stop: 07/03/17 00:53 Last Admin: 07/02/17 01:00 Dose: 60 mls/hr Lactated Ringer's (Lactated Ringer's) 1,000 mls @ 100 mls/hr IV .Q10H [facility] Lactobacillus Acidophilus (Bacid Acidophilus) 1 cap PO BID [facility] Last Admin: 07/02/17 09:00 Dose: Not Given Linezolid (Zyvox) 600 mg PO Q12 [facility] PRN Reason: Protocol Magnesium Hydroxide (Milk Of Magnesia) 30 ml PO DAILY PRN PRN Reason: Constipation Metronidazole (Flagyl) 500 mg PO Q8 [facility] PRN Reason: Protocol Mirtazapine (Remeron) 7.5 mg PO HS [facility] Last Admin: 07/01/17 22:07 Dose: 7.5 mg Multivitamins/Minerals (Therapeutic-M Tab) 1 tab PO DAILY [facility] Last Admin: 07/02/17 09:00 Dose: Not Given Ondansetron HCl (Zofran Inj) 4 mg IVP ONCE PRN PRN Reason: Nausea/Vomiting Tamsulosin HCl (Flomax) 0.4 mg PO DAILY [facility] Last Admin: 07/02/17 09:00 Dose: Not Given Tramadol HCl (Ultram) 50 mg PO Q6 PRN PRN Reason: Pain, moderate (4-7) - Labs Labs: 07/02/17 06:00 07/02/17 06:00 PT 15.0 Seconds (9.8-13.1) H 07/02/17 06:00 INR 1.3 (0.9-1.2) H 07/02/17 06:00 APTT 38.4 Seconds (25.6-37.1) H 07/02/17 06:00 - Head Exam Head Exam: ATRAUMATIC - Eye Exam Eye Exam: Normal appearance - ENT Exam ENT Exam: Mucous Membranes Dry - Respiratory Exam Respiratory Exam: NORMAL BREATHING PATTERN - Cardiovascular Exam Cardiovascular Exam: +S1, +S2 - GI/Abdominal Exam GI & Abdominal Exam: Normal Bowel Sounds Assessment and Plan (1) Coagulopathy Assessment & Plan: secondary to prior anticoagulation nutritional component s/p vit k improving Status: Acute (2) Anemia Assessment & Plan: chronic disease Status: Chronic (3) Dvt femoral (deep venous thrombosis) Assessment & Plan: restart Eliquis once cleared by orthopedics Status: Acute
[2017-07-02] MEDS: Lactated Ringer's 1,000 ML IV SCH (16:59)
[2017-07-03] MEDS: Lactated Ringer's 1,000 ML IV SCH ×3 (00:08→15:52)
[2017-07-03 05:31] LABS: MEAN CELL VOLUME 89.4 fl (80.0-94.0); MEAN CORPUSCULAR HEMOGLOBIN 29.6 pg (27.0-31.0); MEAN CORPUSCULAR HGB CONC 33.1 g/dL (33.0-37.0); RBC 3.05 Mil/uL (4.40-5.90); RED CELL DISTRIBUTION WIDTH 16.3 % (11.5-14.5); WHITE BLOOD COUNT 5.2 K/uL (4.8-10.8)
[2017-07-03 06:16] LABS: ALB/GLOB RATIO 0.6 (1.0-2.1); ALBUMIN 2.2 g/dL (3.5-5.0); ALT/SGPT 24 U/L (21-72); AST/SGOT 25 U/L (17-59); BLOOD UREA NITROGEN 11 mg/dl (9-20); CALCIUM 7.9 mg/dL (8.4-10.2); GFR AFRICAN-AMERICAN > 60; GFR NON-AFRICAN AMERICAN > 60
[2017-07-03 07:48] VITALS: O2SAT 95
[2017-07-03] MEDS: Lactobacillus Acidophilus 500 MU Cap PO SCH ×2 (09:16→16:16)
[2017-07-03] MEDS: Multivitamin With Minerals Tab PO SCH (09:16)
[2017-07-03] MEDS: Cholecalciferol 1,000 INTLU TAB PO SCH (09:17)
--- NOTE | 2017-07-03 11:30 | CP.PCM.PN ---
Subjective - Date & Time of Evaluation Date of Evaluation: 07/03/17 Time of Evaluation: 11:30 - Subjective Subjective: Patient seen and examined at bedside comfortable. Pain well controlled. No acute events overnight. Objective - Vital Signs/Intake and Output Vital Signs (last 24 hours): Temp Pulse Resp BP Pulse Ox 98.4 F 76 20 111/68 95 07/03/17 07:47 07/03/17 07:47 07/03/17 07:47 07/03/17 07:47 07/03/17 07:47 Intake and Output: 07/03/17 07/03/17 06:59 18:59 Intake Total 1560 Output Total 800 Balance 760 - Medications Medications: Current Medications Acetaminophen (Tylenol 325mg Tab) 650 mg PO Q6 PRN PRN Reason: Temp >101 Acetaminophen (Tylenol 325mg Tab) 650 mg PO Q4 PRN PRN Reason: Pain, Mild (1-3) Last Admin: 07/01/17 05:08 Dose: 650 mg Apixaban (Eliquis) 5 mg PO DAILY [facility] PRN Reason: Protocol Last Admin: 07/03/17 09:17 Dose: 5 mg Artificial Tears (Artificial Tears) 2 drop OU Q4H PRN PRN Reason: Dry eyes Last Admin: 07/01/17 16:21 Dose: 2 drop Ascorbic Acid (Vitamin C 500 Mg Tab) 500 mg PO DAILY [facility] Last Admin: 07/03/17 09:17 Dose: 500 mg Cholecalciferol (Vitamin D) 1,000 intlu PO DAILY [facility] Last Admin: 07/03/17 09:17 Dose: 1,000 intlu Hydromorphone HCl (Dilaudid) 2 mg IVP Q4 PRN PRN Reason: Pain, severe (8-10) Last Admin: 07/02/17 10:37 Dose: 2 mg Lactated Ringer's (Lactated Ringer's) 1,000 mls @ 100 mls/hr IV .Q10H [facility] Last Admin: 07/03/17 05:00 Dose: Not Given Lactobacillus Acidophilus (Bacid Acidophilus) 1 cap PO BID [facility] Last Admin: 07/03/17 09:16 Dose: 1 cap Linezolid (Zyvox) 600 mg PO Q12 [facility] PRN Reason: Protocol Last Admin: 07/03/17 09:17 Dose: 600 mg Magnesium Hydroxide (Milk Of Magnesia) 30 ml PO DAILY PRN PRN Reason: Constipation Metronidazole (Flagyl) 500 mg PO Q8 [facility] PRN Reason: Protocol Last Admin: 07/03/17 09:16 Dose: 500 mg Mirtazapine (Remeron) 7.5 mg PO HS [facility] Last Admin: 07/02/17 21:45 Dose: 7.5 mg Multivitamins/Minerals (Therapeutic-M Tab) 1 tab PO DAILY [facility] Last Admin: 07/03/17 09:16 Dose: 1 tab Ondansetron HCl (Zofran Inj) 4 mg IVP ONCE PRN PRN Reason: Nausea/Vomiting Tamsulosin HCl (Flomax) 0.4 mg PO DAILY [facility] Last Admin: 07/03/17 09:17 Dose: 0.4 mg Tramadol HCl (Ultram) 50 mg PO Q6 PRN PRN Reason: Pain, moderate (4-7) Last Admin: 07/03/17 09:37 Dose: 50 mg - Labs Labs: 07/03/17 05:00 07/03/17 05:00 PT 15.0 Seconds (9.8-13.1) H 07/02/17 06:00 INR 1.3 (0.9-1.2) H 07/02/17 06:00 APTT 38.4 Seconds (25.6-37.1) H 07/02/17 06:00 - Extremities Exam Additional comments: LLE: Long leg cast clean dry and intact. Sensation intact SP/DP/TN. Motor intact EHL/FHL. Pedal pulses intact Assessment and Plan (1) Left knee dislocation Assessment & Plan: Patient is POD#1 from left knee closed reduction and long leg cast application -pain control -keep cast clean and dry, padding reinforced at the thigh -NWB LLE, wheelchair for transfer with L foot up -ok to d/c to rehab from ortho s/p -case d/w Dr. Ann in agreement Status: Acute
--- NOTE | 2017-07-03 12:47 | CP.PCM.PN ---
Subjective - Date & Time of Evaluation Date of Evaluation: 07/03/17 Time of Evaluation: 12:26 - Subjective Subjective: Mr. Long was seen and examined at the bedside. He is alert, oriented. He is able to verbalize his name, place. He is able to recall past events and his recent surgeries.He is able to move all his extremities and denies any pain at the leg. He was able to verbalize the various levels of pain. He had an episode of confusion last night, medication was given.He is not in any kind of distress. Objective - Vital Signs/Intake and Output Vital Signs (last 24 hours): Temp Pulse Resp BP Pulse Ox 98.4 F 76 20 111/68 95 07/03/17 07:47 07/03/17 07:47 07/03/17 07:47 07/03/17 07:47 07/03/17 07:47 Intake and Output: 07/03/17 07/03/17 06:59 18:59 Intake Total 1560 Output Total 800 Balance 760 - Medications Medications: Current Medications Acetaminophen (Tylenol 325mg Tab) 650 mg PO Q6 PRN PRN Reason: Temp >101 Acetaminophen (Tylenol 325mg Tab) 650 mg PO Q4 PRN PRN Reason: Pain, Mild (1-3) Last Admin: 07/01/17 05:08 Dose: 650 mg Apixaban (Eliquis) 5 mg PO DAILY [facility] PRN Reason: Protocol Last Admin: 07/03/17 09:17 Dose: 5 mg Artificial Tears (Artificial Tears) 2 drop OU Q4H PRN PRN Reason: Dry eyes Last Admin: 07/01/17 16:21 Dose: 2 drop Ascorbic Acid (Vitamin C 500 Mg Tab) 500 mg PO DAILY [facility] Last Admin: 07/03/17 09:17 Dose: 500 mg Cholecalciferol (Vitamin D) 1,000 intlu PO DAILY [facility] Last Admin: 07/03/17 09:17 Dose: 1,000 intlu Hydromorphone HCl (Dilaudid) 2 mg IVP Q4 PRN PRN Reason: Pain, severe (8-10) Last Admin: 07/02/17 10:37 Dose: 2 mg Lactated Ringer's (Lactated Ringer's) 1,000 mls @ 100 mls/hr IV .Q10H [facility] Last Admin: 07/03/17 05:00 Dose: Not Given Lactobacillus Acidophilus (Bacid Acidophilus) 1 cap PO BID [facility] Last Admin: 07/03/17 09:16 Dose: 1 cap Linezolid (Zyvox) 600 mg PO Q12 [facility] PRN Reason: Protocol Last Admin: 07/03/17 09:17 Dose: 600 mg Magnesium Hydroxide (Milk Of Magnesia) 30 ml PO DAILY PRN PRN Reason: Constipation Metronidazole (Flagyl) 500 mg PO Q8 [facility] PRN Reason: Protocol Last Admin: 07/03/17 09:16 Dose: 500 mg Mirtazapine (Remeron) 7.5 mg PO HS [facility] Last Admin: 07/02/17 21:45 Dose: 7.5 mg Multivitamins/Minerals (Therapeutic-M Tab) 1 tab PO DAILY [facility] Last Admin: 07/03/17 09:16 Dose: 1 tab Ondansetron HCl (Zofran Inj) 4 mg IVP ONCE PRN PRN Reason: Nausea/Vomiting Tamsulosin HCl (Flomax) 0.4 mg PO DAILY [facility] Last Admin: 07/03/17 09:17 Dose: 0.4 mg Tramadol HCl (Ultram) 50 mg PO Q6 PRN PRN Reason: Pain, moderate (4-7) Last Admin: 07/03/17 09:37 Dose: 50 mg - Labs Labs: 07/03/17 05:00 07/03/17 05:00 PT 15.0 Seconds (9.8-13.1) H 07/02/17 06:00 INR 1.3 (0.9-1.2) H 07/02/17 06:00 APTT 38.4 Seconds (25.6-37.1) H 07/02/17 06:00 - Constitutional Appears: No Acute Distress - Head Exam Head Exam: NORMAL INSPECTION - Neurological Exam Neurological Exam: Alert, Awake Neuro motor strength exam: Left Upper Extremity: 4, Right Upper Extremity: 4, Left Lower Extremity: 3, Right Lower Extremity: 3 Additional comments: Neurological unchanged from previous examination. Assessment and Plan (1) Delirium Assessment & Plan: Case discussed with Dr. Hearn, continue all current medical treatment, recommend avoiding benzodiazepines, which can cause paradoxical agitation and confusion in the elderly and avoiding opiates as well, and attempt using alternative medications for pain control. Status: Acute (2) Toxic metabolic encephalopathy Assessment & Plan: Case discussed with Dr. Hearn, continue all current medical, physical, and occupational therapies. Recommend treating the underlying medical condition and continue treatment of infection per the primary team. Appropriate hydration is recommended and caloric intake counting to ensure adequate sustenance is also recommended. Status: Acute
--- NOTE | 2017-07-03 13:59 | CARD ---
APPROVED REPORT EKG Measurement Heart [id number] <Conclusion> Sinus rhythm with premature atrial complexes Low voltage QRS Borderline ECG
--- NOTE | 2017-07-03 16:43 | CP.PCM.PN ---
Subjective - Date & Time of Evaluation Date of Evaluation: 07/03/17 Time of Evaluation: 16:15 - Subjective Subjective: No complaints. Objective - Vital Signs/Intake and Output Vital Signs (last 24 hours): Temp Pulse Resp BP Pulse Ox 98.4 F 84 20 97/55 L 95 07/03/17 15:44 07/03/17 15:44 07/03/17 15:44 07/03/17 15:44 07/03/17 15:44 Intake and Output: 07/03/17 07/03/17 06:59 18:59 Intake Total 1560 Output Total 800 Balance 760 - Medications Medications: Current Medications Acetaminophen (Tylenol 325mg Tab) 650 mg PO Q6 PRN PRN Reason: Temp >101 Acetaminophen (Tylenol 325mg Tab) 650 mg PO Q4 PRN PRN Reason: Pain, Mild (1-3) Last Admin: 07/01/17 05:08 Dose: 650 mg Apixaban (Eliquis) 5 mg PO DAILY [facility] PRN Reason: Protocol Last Admin: 07/03/17 09:17 Dose: 5 mg Artificial Tears (Artificial Tears) 2 drop OU Q4H PRN PRN Reason: Dry eyes Last Admin: 07/01/17 16:21 Dose: 2 drop Ascorbic Acid (Vitamin C 500 Mg Tab) 500 mg PO DAILY [facility] Last Admin: 07/03/17 09:17 Dose: 500 mg Cholecalciferol (Vitamin D) 1,000 intlu PO DAILY [facility] Last Admin: 07/03/17 09:17 Dose: 1,000 intlu Hydromorphone HCl (Dilaudid) 2 mg IVP Q4 PRN PRN Reason: Pain, severe (8-10) Last Admin: 07/02/17 10:37 Dose: 2 mg Lactated Ringer's (Lactated Ringer's) 1,000 mls @ 100 mls/hr IV .Q10H [facility] Last Admin: 07/03/17 15:52 Dose: Not Given Lactobacillus Acidophilus (Bacid Acidophilus) 1 cap PO BID [facility] Last Admin: 07/03/17 16:16 Dose: 1 cap Linezolid (Zyvox) 600 mg PO Q12 [facility] PRN Reason: Protocol Last Admin: 07/03/17 09:17 Dose: 600 mg Magnesium Hydroxide (Milk Of Magnesia) 30 ml PO DAILY PRN PRN Reason: Constipation Metronidazole (Flagyl) 500 mg PO Q8 [facility] PRN Reason: Protocol Last Admin: 07/03/17 16:17 Dose: 500 mg Mirtazapine (Remeron) 7.5 mg PO [facility] Last Admin: 07/02/17 21:45 Dose: 7.5 mg Multivitamins/Minerals (Therapeutic-M Tab) 1 tab PO DAILY [facility] Last Admin: 07/03/17 09:16 Dose: 1 tab Ondansetron HCl (Zofran Inj) 4 mg IVP ONCE PRN PRN Reason: Nausea/Vomiting Tamsulosin HCl (Flomax) 0.4 mg PO DAILY [facility] Last Admin: 07/03/17 09:17 Dose: 0.4 mg Tramadol HCl (Ultram) 50 mg PO Q6 PRN PRN Reason: Pain, moderate (4-7) Last Admin: 07/03/17 09:37 Dose: 50 mg - Labs Labs: 07/03/17 05:00 07/03/17 05:00 PT 15.0 Seconds (9.8-13.1) H 07/02/17 06:00 INR 1.3 (0.9-1.2) H 07/02/17 06:00 APTT 38.4 Seconds (25.6-37.1) H 07/02/17 06:00 - Head Exam Head Exam: ATRAUMATIC - Eye Exam Eye Exam: Normal appearance - ENT Exam ENT Exam: Mucous Membranes Dry - Respiratory Exam Respiratory Exam: NORMAL BREATHING PATTERN - Cardiovascular Exam Cardiovascular Exam: +S1, +S2 - GI/Abdominal Exam GI & Abdominal Exam: Normal Bowel Sounds Assessment and Plan (1) Coagulopathy Assessment & Plan: improved s/p vit k Status: Acute (2) Anemia Assessment & Plan: chronic disease and surgical blood loss Status: Chronic (3) Dvt femoral (deep venous thrombosis) Assessment & Plan: restarted on Eliquis Status: Acute
--- NOTE | 2017-07-03 16:50 | CP.PCM.PN ---
Subjective - Date & Time of Evaluation Date of Evaluation: 07/03/17 Time of Evaluation: 10:30 - Subjective Subjective: Patient seen and examined bedside. Elderly male, pale, and frail lying in bed complaining of pain where LE cast touches thigh posteriorly and heaviness to LLE.With episodes of confusion overnight as per staff and daughter. Hemodynamically stable, afebrile waiting for transfer to [facility] Objective - Vital Signs/Intake and Output Vital Signs (last 24 hours): Temp Pulse Resp BP Pulse Ox 98.4 F 84 20 97/55 L 95 07/03/17 15:44 07/03/17 15:44 07/03/17 15:44 07/03/17 15:44 07/03/17 15:44 Intake and Output: 07/03/17 07/03/17 06:59 18:59 Intake Total 1560 Output Total 800 Balance 760 - Medications Medications: Current Medications Acetaminophen (Tylenol 325mg Tab) 650 mg PO Q6 PRN PRN Reason: Temp >101 Acetaminophen (Tylenol 325mg Tab) 650 mg PO Q4 PRN PRN Reason: Pain, Mild (1-3) Last Admin: 07/01/17 05:08 Dose: 650 mg Apixaban (Eliquis) 5 mg PO DAILY [facility] PRN Reason: Protocol Last Admin: 07/03/17 09:17 Dose: 5 mg Artificial Tears (Artificial Tears) 2 drop OU Q4H PRN PRN Reason: Dry eyes Last Admin: 07/01/17 16:21 Dose: 2 drop Ascorbic Acid (Vitamin C 500 Mg Tab) 500 mg PO DAILY [facility] Last Admin: 07/03/17 09:17 Dose: 500 mg Cholecalciferol (Vitamin D) 1,000 intlu PO DAILY [facility] Last Admin: 07/03/17 09:17 Dose: 1,000 intlu Hydromorphone HCl (Dilaudid) 2 mg IVP Q4 PRN PRN Reason: Pain, severe (8-10) Last Admin: 07/02/17 10:37 Dose: 2 mg Lactated Ringer's (Lactated Ringer's) 1,000 mls @ 100 mls/hr IV .Q10H [facility] Last Admin: 07/03/17 15:52 Dose: Not Given Lactobacillus Acidophilus (Bacid Acidophilus) 1 cap PO BID [facility] Last Admin: 07/03/17 16:16 Dose: 1 cap Linezolid (Zyvox) 600 mg PO Q12 [facility] PRN Reason: Protocol Last Admin: 07/03/17 09:17 Dose: 600 mg Magnesium Hydroxide (Milk Of Magnesia) 30 ml PO DAILY PRN PRN Reason: Constipation Metronidazole (Flagyl) 500 mg PO Q8 [facility] PRN Reason: Protocol Last Admin: 07/03/17 16:17 Dose: 500 mg Mirtazapine (Remeron) 7.5 mg PO HS [facility] Last Admin: 07/02/17 21:45 Dose: 7.5 mg Multivitamins/Minerals (Therapeutic-M Tab) 1 tab PO DAILY [facility] Last Admin: 07/03/17 09:16 Dose: 1 tab Ondansetron HCl (Zofran Inj) 4 mg IVP ONCE PRN PRN Reason: Nausea/Vomiting Tamsulosin HCl (Flomax) 0.4 mg PO DAILY [facility] Last Admin: 07/03/17 09:17 Dose: 0.4 mg Tramadol HCl (Ultram) 50 mg PO Q6 PRN PRN Reason: Pain, moderate (4-7) Last Admin: 07/03/17 09:37 Dose: 50 mg - Labs Labs: 07/03/17 05:00 07/03/17 05:00 PT 15.0 Seconds (9.8-13.1) H 07/02/17 06:00 INR 1.3 (0.9-1.2) H 07/02/17 06:00 APTT 38.4 Seconds (25.6-37.1) H 07/02/17 06:00 - Constitutional Appears: Non-toxic, No Acute Distress - Head Exam Head Exam: ATRAUMATIC, NORMAL INSPECTION, NORMOCEPHALIC - Eye Exam Eye Exam: EOMI, Normal appearance, PERRL Pupil Exam: NORMAL ACCOMODATION - ENT Exam ENT Exam: Mucous Membranes Moist, Normal Exam - Neck Exam Neck Exam: Normal Inspection - Respiratory Exam Respiratory Exam: Clear to Ausculation Bilateral, NORMAL BREATHING PATTERN. absent: Rhonchi, Wheezes - Cardiovascular Exam Cardiovascular Exam: REGULAR RHYTHM, RRR, +S1, +S2. absent: JVD - GI/Abdominal Exam GI & Abdominal Exam: Soft, Normal Bowel Sounds. absent: Distended, Guarding, Rebound - Rectal Exam Rectal Exam: Deferred - Extremities Exam Extremities Exam: Normal Capillary Refill Additional comments: LLE had cast extending from foot to mid thigh moving toes , warm to touch - Back Exam Back Exam: Full ROM, NORMAL INSPECTION - Neurological Exam Neurological Exam: Alert, Awake, CN II-XII Intact, Oriented x3 Additional comments: with confusion - Psychiatric Exam Psychiatric exam: Anxious, Flat Affect Additional comments: confused - Skin Skin Exam: Dry, Pallor, Warm Assessment and Plan - Assessment and Plan (Free Text) Assessment: 82 yo male with history of DVT, Arthritis and BPH sent back from [facility] because of pain on left knee. He was discharged to [facility] a month ago after revision was done on the left TKR. Wound culture grew Staph aureus. He was put on IV Cefepime and Vanco which were continued when he was transferred to [facility]. About a week ago as per daughter, patient was lifted and probably injured and dislocated left knee. Patient has been in pain since then.ortho wsa cosnulted and he underwent Closed Reduction of Dislocated knee and placement of Antibiotic spacer on 07/02. At present hemodynamically stable, with some confusion , waiting for EDGAR placement 1. 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 Will continue 2 more weeks of Zyvox Po ( received 2 weeks of Rocephin and Vanco IV ) Plan for discharge to [facility] Cleared by ortho for discharge 2.History of DVT restarted eliquis today Hematology on board 3. BPH on Flomax 4. Altered Mental Status secondary to Delirium episodes of confusion neuro consulted CT scan of the head: neg avoid benzodiazepines and narcotics 5. C Diff Infection C diff antigen positive on Flagyl 500mg PO TID Discussed with ID. Will continue 7 more days 6. Coagulopathy INR and PTT sl elevated , probably related to Eliquis use received Vit K Hematology following pt 7. Anemia stable Give Venofer IV strat PO iron sulfate
--- NOTE | 2017-07-03 18:57 | PN ---
DATE: SUBJECTIVE: The patient underwent closed reduction, manipulation, and application of long leg cast with femoral nerve block with ultrasound and popliteal nerve block. The patient denies any chest pain or shortness of breath. PHYSICAL EXAMINATION: VITAL SIGNS: Blood pressure 97/65, heart rate 84, temperature 98.4, and respirations 20. HEENT: Pale conjunctivae. CHEST: Clear. HEART: S1 and S2 regular. EXTREMITIES: No edema LABORATORY DATA: Today's hemoglobin and hematocrit are 9 and 27.3, white count and platelet count are within normal limit. Today's SMA-7 is within normal limits except for creatinine of 0.6 and calcium of 7.9. ASSESSMENT: 1. Status post closed reduction and manipulation of long cast for left knee fracture and dislocation. 2. Clostridium difficile colitis. 3. Bilateral basal ganglia lacunar infarct. 4. fusiform dilatation of the ascending aorta. RECOMMENDATIONS: I did review the postoperative EKG, which I ordered yesterday and it revealed sinus risk with ABGs, low-voltage QRS. Continue current Lactobacillus acidophilus. Continue Eliquis at 5 mg daily, which was started today and Zyvox 600 mg p.o. twice a day. The patient can be transferred to subacute rehab. Case was discussed with the patient's daughter at the bedside. Liban Oliveira MD
[2017-07-04] MEDS: Lactated Ringer's 1,000 ML IV SCH (00:45)
[2017-07-04 07:30] LABS: MEAN CELL VOLUME 89.4 fl (80.0-94.0); MEAN CORPUSCULAR HEMOGLOBIN 29.4 pg (27.0-31.0); MEAN CORPUSCULAR HGB CONC 32.9 g/dL (33.0-37.0); RBC 3.39 Mil/uL (4.40-5.90); WHITE BLOOD COUNT 5.5 K/uL (4.8-10.8)
[2017-07-04 07:50] LABS: BLOOD UREA NITROGEN 7 mg/dl (9-20); CALCIUM 8.1 mg/dL (8.4-10.2); GFR AFRICAN-AMERICAN > 60; GFR NON-AFRICAN AMERICAN > 60
[2017-07-04] MEDS ORDERED: Potassium Chloride 20 mEq/15 ml LIQ UD PO ONE (07:57)
[2017-07-04 07:58] VITALS: BP 110/67; PULSE 79; RESP 20; TEMP 98.4
[2017-07-04] MEDS: Lactobacillus Acidophilus 500 MU Cap PO SCH (08:40)
[2017-07-04] MEDS: Multivitamin With Minerals Tab PO SCH (08:40)
[2017-07-04] MEDS: Cholecalciferol 1,000 INTLU TAB PO SCH (08:41)
--- NOTE | 2017-07-04 09:40 | CP.PCM.PN ---
Subjective - Date & Time of Evaluation Date of Evaluation: 07/04/17 Time of Evaluation: 08:00 - Subjective Subjective: Patient seen and examined at bedside comfortable. No complaints of pain. Traci diet. No new complaints. Objective - Vital Signs/Intake and Output Vital Signs (last 24 hours): Temp Pulse Resp BP Pulse Ox 98.4 F 79 20 110/67 95 07/04/17 07:57 07/04/17 07:57 07/04/17 07:57 07/04/17 07:57 07/04/17 07:57 Intake and Output: 07/04/17 07/04/17 06:59 18:59 Output Total 400 Balance -400 - Medications Medications: Current Medications Acetaminophen (Tylenol 325mg Tab) 650 mg PO Q6 PRN PRN Reason: Temp >101 Acetaminophen (Tylenol 325mg Tab) 650 mg PO Q4 PRN PRN Reason: Pain, Mild (1-3) Last Admin: 07/01/17 05:08 Dose: 650 mg Apixaban (Eliquis) 5 mg PO DAILY [facility] PRN Reason: Protocol Last Admin: 07/04/17 08:41 Dose: 5 mg Artificial Tears (Artificial Tears) 2 drop OU Q4H PRN PRN Reason: Dry eyes Last Admin: 07/01/17 16:21 Dose: 2 drop Ascorbic Acid (Vitamin C 500 Mg Tab) 500 mg PO DAILY [facility] Last Admin: 07/04/17 08:40 Dose: 500 mg Cholecalciferol (Vitamin D) 1,000 intlu PO DAILY [facility] Last Admin: 07/04/17 08:41 Dose: 1,000 intlu Hydromorphone HCl (Dilaudid) 2 mg IVP Q4 PRN PRN Reason: Pain, severe (8-10) Last Admin: 07/02/17 10:37 Dose: 2 mg Lactated Ringer's (Lactated Ringer's) 1,000 mls @ 100 mls/hr IV .Q10H [facility] Last Admin: 07/04/17 00:45 Dose: Not Given Iron Sucrose 100 mg/ Sodium (Chloride) 105 mls @ 105 mls/hr IVPB DAILY [facility] Lactobacillus Acidophilus (Bacid Acidophilus) 1 cap PO BID [facility] Last Admin: 07/04/17 08:40 Dose: 1 cap Linezolid (Zyvox) 600 mg PO Q12 [facility] PRN Reason: Protocol Last Admin: 07/04/17 08:40 Dose: 600 mg Magnesium Hydroxide (Milk Of Magnesia) 30 ml PO DAILY PRN PRN Reason: Constipation Metronidazole (Flagyl) 500 mg PO Q8 [facility] PRN Reason: Protocol Last Admin: 07/04/17 08:40 Dose: 500 mg Mirtazapine (Remeron) 7.5 mg PO HS [facility] Last Admin: 07/03/17 21:22 Dose: 7.5 mg Multivitamins/Minerals (Therapeutic-M Tab) 1 tab PO DAILY [facility] Last Admin: 07/04/17 08:40 Dose: 1 tab Ondansetron HCl (Zofran Inj) 4 mg IVP ONCE PRN PRN Reason: Nausea/Vomiting Tamsulosin HCl (Flomax) 0.4 mg PO DAILY [facility] Last Admin: 07/04/17 08:41 Dose: 0.4 mg Tramadol HCl (Ultram) 50 mg PO Q6 PRN PRN Reason: Pain, moderate (4-7) Last Admin: 07/03/17 09:37 Dose: 50 mg - Labs Labs: 07/04/17 06:45 07/04/17 06:45 PT 15.0 Seconds (9.8-13.1) H 07/02/17 06:00 INR 1.3 (0.9-1.2) H 07/02/17 06:00 APTT 38.4 Seconds (25.6-37.1) H 07/02/17 06:00 - Extremities Exam Additional comments: LLE: Long leg cast clean dry and intact. Sensation intact SP/DP/TN. Motor intact EHL/FHL. Pedal pulses intact Assessment and Plan (1) Left knee dislocation Assessment & Plan: Patient is POD#2 from left knee closed reduction and long leg cast application -pain control -keep cast clean and dry -NWB LLE, wheelchair for transfer with L foot up -clear to d/c to rehab from ortho s/p -case d/w Dr. Ann in agreement Status: Acute
--- NOTE | 2017-07-04 10:40 | CP.PCM.PN ---
Subjective - Date & Time of Evaluation Date of Evaluation: 07/04/17 Time of Evaluation: 10:37 - Subjective Subjective: Seen on morning rounds on the medical floor. He is postop day #2 after closed reduction of the left knee with application of a long leg cast. He appears comfortable lying in bed with the left lower extremity raised. He is confused and disoriented but not agitated or combative. His vital signs have remained stable. He has begun physical therapy. There is some coughing noted after drinking thin liquids through a straw. There are no signs of any dyspnea. His breath sounds are diminished but present equally in all lung velásquez. No audible wheezing or bronchial breathing. Rare dry rales are heard in the lower lobes posteriorly. Rare scattered sonorous rhonchi in the dependent zones. Appears clinically stable from a respiratory standpoint postoperatively. Objective - Vital Signs/Intake and Output Vital Signs (last 24 hours): Temp Pulse Resp BP Pulse Ox 98.4 F 79 20 110/67 95 07/04/17 07:57 07/04/17 07:57 07/04/17 07:57 07/04/17 07:57 07/04/17 07:57 Intake and Output: 07/03/17 07/04/17 23:59 11:59 Output Total 400 Balance -400 - Medications Medications: Current Medications Acetaminophen (Tylenol 325mg Tab) 650 mg PO Q6 PRN PRN Reason: Temp >101 Acetaminophen (Tylenol 325mg Tab) 650 mg PO Q4 PRN PRN Reason: Pain, Mild (1-3) Last Admin: 07/01/17 05:08 Dose: 650 mg Apixaban (Eliquis) 5 mg PO DAILY [facility] PRN Reason: Protocol Last Admin: 07/04/17 08:41 Dose: 5 mg Artificial Tears (Artificial Tears) 2 drop OU Q4H PRN PRN Reason: Dry eyes Last Admin: 07/01/17 16:21 Dose: 2 drop Ascorbic Acid (Vitamin C 500 Mg Tab) 500 mg PO DAILY [facility] Last Admin: 07/04/17 08:40 Dose: 500 mg Cholecalciferol (Vitamin D) 1,000 intlu PO DAILY [facility] Last Admin: 07/04/17 08:41 Dose: 1,000 intlu Hydromorphone HCl (Dilaudid) 2 mg IVP Q4 PRN PRN Reason: Pain, severe (8-10) Last Admin: 07/02/17 10:37 Dose: 2 mg Lactated Ringer's (Lactated Ringer's) 1,000 mls @ 100 mls/hr IV .Q10H [facility] Last Admin: 07/04/17 00:45 Dose: Not Given Iron Sucrose 100 mg/ Sodium (Chloride) 105 mls @ 105 mls/hr IVPB DAILY [facility] Last Admin: 07/04/17 09:56 Dose: 105 mls/hr Lactobacillus Acidophilus (Bacid Acidophilus) 1 cap PO BID [facility] Last Admin: 07/04/17 08:40 Dose: 1 cap Linezolid (Zyvox) 600 mg PO Q12 [facility] PRN Reason: Protocol Last Admin: 07/04/17 08:40 Dose: 600 mg Magnesium Hydroxide (Milk Of Magnesia) 30 ml PO DAILY PRN PRN Reason: Constipation Metronidazole (Flagyl) 500 mg PO Q8 [facility] PRN Reason: Protocol Last Admin: 07/04/17 08:40 Dose: 500 mg Mirtazapine (Remeron) 7.5 mg PO HS [facility] Last Admin: 07/03/17 21:22 Dose: 7.5 mg Multivitamins/Minerals (Therapeutic-M Tab) 1 tab PO DAILY [facility] Last Admin: 07/04/17 08:40 Dose: 1 tab Ondansetron HCl (Zofran Inj) 4 mg IVP ONCE PRN PRN Reason: Nausea/Vomiting Tamsulosin HCl (Flomax) 0.4 mg PO DAILY [facility] Last Admin: 07/04/17 08:41 Dose: 0.4 mg Tramadol HCl (Ultram) 50 mg PO Q6 PRN PRN Reason: Pain, moderate (4-7) Last Admin: 07/03/17 09:37 Dose: 50 mg - Labs Labs: 07/04/17 06:45 07/04/17 06:45 PT 15.0 Seconds (9.8-13.1) H 07/02/17 06:00 INR 1.3 (0.9-1.2) H 07/02/17 06:00 APTT 38.4 Seconds (25.6-37.1) H 07/02/17 06:00 Assessment and Plan (1) Pulmonary infiltrate in right lung on chest x-ray Status: Suspected
--- NOTE | 2017-07-04 11:57 | CP.PCM.PN ---
Subjective - Date & Time of Evaluation Date of Evaluation: 07/04/17 Time of Evaluation: 11:57 - Subjective Subjective: Mr. Long was seen and examined at the bedside. He is alert, oriented. He is able to verbalize his name, place. He is able to recall past events and his recent surgeries.He is able to move all his extremities and denies any pain at the leg. He was able to verbalize the various levels of pain. He had an episode of confusion last night, medication was given.He is not in any kind of distress. He remains on telesitter for patient safety. Objective - Vital Signs/Intake and Output Vital Signs (last 24 hours): Temp Pulse Resp BP Pulse Ox 98.4 F 79 20 110/67 95 07/04/17 07:57 07/04/17 07:57 07/04/17 07:57 07/04/17 07:57 07/04/17 07:57 Intake and Output: 07/04/17 07/04/17 06:59 18:59 Output Total 400 Balance -400 - Medications Medications: Current Medications Acetaminophen (Tylenol 325mg Tab) 650 mg PO Q6 PRN PRN Reason: Temp >101 Acetaminophen (Tylenol 325mg Tab) 650 mg PO Q4 PRN PRN Reason: Pain, Mild (1-3) Last Admin: 07/01/17 05:08 Dose: 650 mg Apixaban (Eliquis) 5 mg PO DAILY [facility] PRN Reason: Protocol Last Admin: 07/04/17 08:41 Dose: 5 mg Artificial Tears (Artificial Tears) 2 drop OU Q4H PRN PRN Reason: Dry eyes Last Admin: 07/01/17 16:21 Dose: 2 drop Ascorbic Acid (Vitamin C 500 Mg Tab) 500 mg PO DAILY [facility] Last Admin: 07/04/17 08:40 Dose: 500 mg Cholecalciferol (Vitamin D) 1,000 intlu PO DAILY [facility] Last Admin: 07/04/17 08:41 Dose: 1,000 intlu Hydromorphone HCl (Dilaudid) 2 mg IVP Q4 PRN PRN Reason: Pain, severe (8-10) Last Admin: 07/02/17 10:37 Dose: 2 mg Lactated Ringer's (Lactated Ringer's) 1,000 mls @ 100 mls/hr IV .Q10H [facility] Last Admin: 07/04/17 00:45 Dose: Not Given Iron Sucrose 100 mg/ Sodium (Chloride) 105 mls @ 105 mls/hr IVPB DAILY [facility] Last Admin: 07/04/17 09:56 Dose: 105 mls/hr Lactobacillus Acidophilus (Bacid Acidophilus) 1 cap PO BID [facility] Last Admin: 07/04/17 08:40 Dose: 1 cap Linezolid (Zyvox) 600 mg PO Q12 [facility] PRN Reason: Protocol Last Admin: 07/04/17 08:40 Dose: 600 mg Magnesium Hydroxide (Milk Of Magnesia) 30 ml PO DAILY [facility] PRN Reason: Constipation Metronidazole (Flagyl) 500 mg PO Q8 [facility] PRN Reason: Protocol Last Admin: 07/04/17 08:40 Dose: 500 mg Mirtazapine (Remeron) 7.5 mg PO HS [facility] Last Admin: 07/03/17 21:22 Dose: 7.5 mg Multivitamins/Minerals (Therapeutic-M Tab) 1 tab PO DAILY [facility] Last Admin: 07/04/17 08:40 Dose: 1 tab Ondansetron HCl (Zofran Inj) 4 mg IVP ONCE PRN PRN Reason: Nausea/Vomiting Tamsulosin HCl (Flomax) 0.4 mg PO DAILY [facility] Last Admin: 07/04/17 08:41 Dose: 0.4 mg Tramadol HCl (Ultram) 50 mg PO Q6 PRN PRN Reason: Pain, moderate (4-7) Last Admin: 07/03/17 09:37 Dose: 50 mg - Labs Labs: 07/04/17 06:45 07/04/17 06:45 PT 15.0 Seconds (9.8-13.1) H 07/02/17 06:00 INR 1.3 (0.9-1.2) H 07/02/17 06:00 APTT 38.4 Seconds (25.6-37.1) H 07/02/17 06:00 - Constitutional Appears: No Acute Distress - Head Exam Head Exam: NORMAL INSPECTION - Neurological Exam Neurological Exam: Alert, Awake Neuro motor strength exam: Left Upper Extremity: 4, Right Upper Extremity: 4, Left Lower Extremity: 2/1, Right Lower Extremity: 3 Additional comments: Neurological unchanged from previous examination. Assessment and Plan (1) Delirium Assessment & Plan: Case discussed with Dr. Hearn, continue all current medical treatment, recommend avoiding benzodiazepines, which can cause paradoxical agitation and confusion in the elderly and avoiding opiates as well, and attempt using alternative medications for pain control. Status: Acute (2) Toxic metabolic encephalopathy Assessment & Plan: Case discussed with Dr. Hearn, continue all current medical, physical, and occupational therapies. Recommend treating the underlying medical condition and continue treatment of infection per the primary team. Appropriate hydration is recommended and caloric intake counting to ensure adequate sustenance. Status: Acute
--- NOTE | 2017-07-04 12:06 | CP.PCM.PN ---
Subjective - Date & Time of Evaluation Date of Evaluation: 07/04/17 Time of Evaluation: 11:45 - Subjective Subjective: Appears comfortable, no complaints. Objective - Vital Signs/Intake and Output Vital Signs (last 24 hours): Temp Pulse Resp BP Pulse Ox 98.4 F 79 20 110/67 95 07/04/17 07:57 07/04/17 07:57 07/04/17 07:57 07/04/17 07:57 07/04/17 07:57 Intake and Output: 07/04/17 07/04/17 06:59 18:59 Output Total 400 Balance -400 - Medications Medications: Current Medications Acetaminophen (Tylenol 325mg Tab) 650 mg PO Q6 PRN PRN Reason: Temp >101 Acetaminophen (Tylenol 325mg Tab) 650 mg PO Q4 PRN PRN Reason: Pain, Mild (1-3) Last Admin: 07/01/17 05:08 Dose: 650 mg Apixaban (Eliquis) 5 mg PO DAILY [facility] PRN Reason: Protocol Last Admin: 07/04/17 08:41 Dose: 5 mg Artificial Tears (Artificial Tears) 2 drop OU Q4H PRN PRN Reason: Dry eyes Last Admin: 07/01/17 16:21 Dose: 2 drop Ascorbic Acid (Vitamin C 500 Mg Tab) 500 mg PO DAILY [facility] Last Admin: 07/04/17 08:40 Dose: 500 mg Cholecalciferol (Vitamin D) 1,000 intlu PO DAILY [facility] Last Admin: 07/04/17 08:41 Dose: 1,000 intlu Hydromorphone HCl (Dilaudid) 2 mg IVP Q4 PRN PRN Reason: Pain, severe (8-10) Last Admin: 07/02/17 10:37 Dose: 2 mg Lactated Ringer's (Lactated Ringer's) 1,000 mls @ 100 mls/hr IV .Q10H [facility] Last Admin: 07/04/17 00:45 Dose: Not Given Iron Sucrose 100 mg/ Sodium (Chloride) 105 mls @ 105 mls/hr IVPB DAILY [facility] Last Admin: 07/04/17 09:56 Dose: 105 mls/hr Lactobacillus Acidophilus (Bacid Acidophilus) 1 cap PO BID [facility] Last Admin: 07/04/17 08:40 Dose: 1 cap Linezolid (Zyvox) 600 mg PO Q12 [facility] PRN Reason: Protocol Last Admin: 07/04/17 08:40 Dose: 600 mg Magnesium Hydroxide (Milk Of Magnesia) 30 ml PO DAILY PR[facility] PRN Reason: Constipation Metronidazole (Flagyl) 500 mg PO Q8 [facility] PRN Reason: Protocol Last Admin: 07/04/17 08:40 Dose: 500 mg Mirtazapine (Remeron) 7.5 mg PO HS [facility] Last Admin: 07/03/17 21:22 Dose: 7.5 mg Multivitamins/Minerals (Therapeutic-M Tab) 1 tab PO DAILY [facility] Last Admin: 07/04/17 08:40 Dose: 1 tab Ondansetron HCl (Zofran Inj) 4 mg IVP ONCE PRN PRN Reason: Nausea/Vomiting Tamsulosin HCl (Flomax) 0.4 mg PO DAILY [facility] Last Admin: 07/04/17 08:41 Dose: 0.4 mg Tramadol HCl (Ultram) 50 mg PO Q6 PRN PRN Reason: Pain, moderate (4-7) Last Admin: 07/03/17 09:37 Dose: 50 mg - Labs Labs: 07/04/17 06:45 07/04/17 06:45 PT 15.0 Seconds (9.8-13.1) H 07/02/17 06:00 INR 1.3 (0.9-1.2) H 07/02/17 06:00 APTT 38.4 Seconds (25.6-37.1) H 07/02/17 06:00 - Head Exam Head Exam: ATRAUMATIC - Eye Exam Eye Exam: Normal appearance - ENT Exam ENT Exam: Mucous Membranes Dry - Respiratory Exam Respiratory Exam: NORMAL BREATHING PATTERN - Cardiovascular Exam Cardiovascular Exam: +S1, +S2 - GI/Abdominal Exam GI & Abdominal Exam: Normal Bowel Sounds Assessment and Plan (1) Anemia Assessment & Plan: improving chronic disease, surgical blood loss Status: Chronic (2) Dvt femoral (deep venous thrombosis) Assessment & Plan: on Eliquis duration of 3 months; likely near completion as started in March cont. until ambulatory as high risk for future DVT given recent orthopedic surgery and immobility Status: Acute (3) Coagulopathy Assessment & Plan: anticoagulation Status: Acute
--- NOTE | 2017-07-04 12:09 | OP ---
PROCEDURE DATE: 07/02/2017 PREOPERATIVE DIAGNOSIS: Left knee dislocated antibiotic spacer status post left total knee explant. POSTOPERATIVE DIAGNOSIS: Left knee dislocated antibiotic spacer status post left total knee explant. OPERATIVE FINDINGS: Dislocated left knee antibiotic spacer after improper manipulation and the patient noncompliant in the Assisted facility. SURGEON: Stevan Ann MD HOLLOW HANDLE KNIFE ASSEMBLER: Humza Kiser PA-C TYPE OF ANESTHESIA: General endotracheal anesthesia. ANESTHESIA ADMINISTERED BY: Noam Brokc MD OPERATIVE PROCEDURES: 1. Closed reduction of dislocated knee/antibiotic spacer. 2. Application of long-leg cast. 3. Position of fluoroscope, interpretation with video images. BLOOD LOSS: No blood loss. BLOOD PRODUCTS: No blood products. DRAINS: No drains. POSTOPERATIVE CONDITION: Good. TIME OF PROCEDURE: 08:00 a.m. start time, the patient in the room 07:40. OPERATIVE INDICATION: Afshin Long is a gentleman who unfortunately underwent quadriceps rupture and septic left total knee replacement after successful total knee replacement. The patient has been extremely non-cooperative in two different subacute nursing facilities. The administratives were talked to in both facilities and the patient is just incorrigible. At this point in time, while changing the dressing, the patient's knee dislocated again because the patient was not complaint and also because of improper help in changing the dressing. The patient presents to my office and he was told to go to the emergency room at [facility] as an emergency. The patient had significant comorbidities and the patient was admitted through the emergency room. Medical, neurology, cardiology, and pulmonary stabilization was accomplished. After having obtained medical clearance, consent was obtained both from the patient and his daughter, Ivana. The pros, cons, risks and benefits of the surgical approach were discussed, the closed reduction. The concept of his comorbidities possibly interfering with later reimplantation was discussed. The possibility of mechanical failure, infection, possibility of later secondary open surgery was discussed. Both the patient and his daughter Ivana agreed and consented to the procedure. OPERATIVE PROCEDURE: After having obtained informed consent in the above fashion, after having identified side, site, and procedure and critical pause/time-out, after the satisfactory induction of the anesthetic, the patient was identified as Afshin Long in the supine position with all bony prominences well padded, the left lower extremity is evaluated. There was found to be gross dislocation of the spacer, neurocirculatory status was intact, it was never compromised. At this point in time, with the mortgage loan assistant offering countertraction of the thigh, the surgeon reduces the knee with manipulation in downward directed force on the femur and upward directed force on the tibia reducing the dislocation. The dislocation was reduced. The pulse was intact. Verification of position is offered. A thorough well-padded dressing is applied. The stockinette is applied and a well-padded well light cast is applied. Verification of position is offered and acceptable position of the construct is offered in recovery. A long-leg cast is employed because of the patient's noncompliance and borderline dementia at times. The situation is discussed at length with the daughter, Ivana, who is also a very difficulty family member in terms of not grasping the situation, the father, whether it be senile or senile dementia, is just not compliant. The left knee is the correct knee. Stevan Ann MD
--- NOTE | 2017-07-04 14:49 | CP.PCM.DIS ---
Provider - Provider Date of Admission: 06/27/17 17:32 Attending physician: Antonino Boone MD Primary care physician: Dr. Ann Consults: ortho consult ID consult Hematology consult psych consult Cardio neuro PT/OT Pulmonary Time Spent in preparation of Discharge (in minutes): 15 Hospital Course - Lab Results Lab Results: Micro Results 06/27/17 17:15 Blood-Venous Blood Culture - Final NO GROWTH AFTER 5 DAYS 06/27/17 17:15 Blood-Venous Gram Stain - Final TEST NOT PERFORMED 06/27/17 16:55 Blood-Venous Blood Culture - Final NO GROWTH AFTER 5 DAYS 06/27/17 16:55 Blood-Venous Gram Stain - Final TEST NOT PERFORMED 06/27/17 18:54 Knee - Left Gram Stain - Final 06/27/17 18:54 Knee - Left Wound Culture - Final No growth. 06/27/17 16:45 Urine,Clean Catch Urine Culture - Final Gram Positive Cocci Most Recent Lab Values WBC 5.5 K/uL (4.8-10.8) 07/04/17 06:45 RBC 3.39 Mil/uL (4.40-5.90) L 07/04/17 06:45 Hgb 10.0 g/dL (12.0-18.0) L 07/04/17 06:45 Hct 30.3 % (35.0-51.0) L 07/04/17 06:45 MCV 89.4 fl (80.0-94.0) 07/04/17 06:45 MCH 29.4 pg (27.0-31.0) 07/04/17 06:45 MCHC 32.9 g/dL (33.0-37.0) L 07/04/17 06:45 RDW 16.0 % (11.5-14.5) H 07/04/17 06:45 Plt Count 193 K/uL (130-400) 07/04/17 06:45 MPV 8.0 fl (7.2-11.7) 06/28/17 05:30 Neut % (Auto) 68.5 % (50.0-75.0) 06/28/17 05:30 Lymph % (Auto) 18.7 % (20.0-40.0) L 06/28/17 05:30 [place] % (Auto) 10.9 % (0.0-10.0) H 06/28/17 05:30 Eos % (Auto) 1.4 % (0.0-4.0) 06/28/17 05:30 Baso % (Auto) 0.5 % (0.0-2.0) 06/28/17 05:30 Neut # (Auto) 5.0 K/uL (1.8-7.0) 06/28/17 05:30 Lymph # (Auto) 1.4 K/uL (1.0-4.3) 06/28/17 05:30 [place] # (Auto) 0.8 K/uL (0.0-0.8) 06/28/17 05:30 Eos # (Auto) 0.1 K/uL (0.0-0.7) 06/28/17 05:30 Baso # (Auto) 0.0 K/uL (0.0-0.2) 06/28/17 05:30 Neutrophils % (Manual) 54 % (42-75) 06/27/17 17:03 Lymphocytes % (Manual) 17 % (20-50) L 06/27/17 17:03 Reactive Lymphs % 18 % (0-0) H 06/27/17 17:03 Monocytes % (Manual) 10 % (0-10) 06/27/17 17:03 Eosinophils % (Manual) 1 % (0-7) 06/27/17 17:03 Smudge Cells Present 06/27/17 17:03 Platelet Estimate Normal (NORMAL) 06/27/17 17:03 Hypochromasia (manual) Slight 06/27/17 17:03 Poikilocytosis (manual Slight 06/27/17 17:03 Anisocytosis (manual) Slight 06/27/17 17:03 Macrocytosis (manual) Slight 06/27/17 17:03 Stomatocytes Slight 06/27/17 17:03 Retic Count 1.4 % (0.5-1.5) 06/29/17 05:30 PT 15.0 Seconds (9.8-13.1) H 07/02/17 06:00 INR 1.3 (0.9-1.2) H 07/02/17 06:00 APTT 38.4 Seconds (25.6-37.1) H 07/02/17 06:00 pO2 46 mm/Hg (30-55) 06/27/17 17:43 VBG pH 7.43 (7.32-7.43) 06/27/17 17:43 VBG pCO2 47 mmHg (40-60) 06/27/17 17:43 VBG HCO3 29.1 mmol/L 06/27/17 17:43 VBG Total CO2 32.6 mmol/L (22-28) H 06/27/17 17:43 VBG O2 Sat (Calc) 88.6 % (40-65) H 06/27/17 17:43 VBG Base Excess 5.8 mmol/L (0.0-2.0) H 06/27/17 17:43 VBG Potassium 3.8 mmol/L (3.6-5.2) 06/27/17 17:43 Sodium 135.0 mmol/L (132-148) 06/27/17 17:43 Chloride 105.0 mmol/L (98-107) 06/27/17 17:43 Glucose 123 mg/dL (75-110) H 06/27/17 17:43 Lactate 1.5 mmol/L (0.7-2.1) 06/27/17 17:43 FiO2 21.0 % 06/27/17 17:43 Sodium 141 mmol/l (132-148) 07/04/17 06:45 Potassium 3.5 MMOL/L (3.6-5.0) L 07/04/17 06:45 Chloride 104 mmol/L (98-107) 07/04/17 06:45 Carbon Dioxide 30 mmol/L (22-30) 07/04/17 06:45 Anion Gap 11 (10-20) 07/04/17 06:45 BUN 7 mg/dl (9-20) L 07/04/17 06:45 Creatinine 0.6 mg/dl (0.8-1.5) L 07/04/17 06:45 Est GFR ( Amer) > 60 07/04/17 06:45 Est GFR (Non-Af Amer) > 60 07/04/17 06:45 Random Glucose 91 mg/dL (75-110) 07/04/17 06:45 Calcium 8.1 mg/dL (8.4-10.2) L 07/04/17 06:45 Phosphorus 3.2 mg/dl (2.5-4.5) 06/27/17 17:03 Magnesium 2.1 MG/DL (1.6-2.3) 06/27/17 17:03 Ferritin 321.0 ng/Ml (17.9-464) 06/29/17 05:30 Total Bilirubin 0.5 mg/dl (0.2-1.3) 07/03/17 05:00 AST 25 U/L (17-59) 07/03/17 05:00 ALT 24 U/L (21-72) 07/03/17 05:00 Alkaline Phosphatase 66 U/L (38-126) 07/03/17 05:00 Troponin I < 0.0120 ng/mL (0.00-0.120) 06/27/17 17:03 NT-Pro-B Natriuret Pep 758 pg/ml (0-900) 06/27/17 17:03 Total Protein 5.7 G/DL (6.3-8.2) L 07/03/17 05:00 Albumin 2.2 g/dL (3.5-5.0) L 07/03/17 05:00 Globulin 3.6 gm/dL (2.2-3.9) 07/03/17 05:00 Albumin/Globulin Ratio 0.6 (1.0-2.1) L 07/03/17 05:00 Vitamin B12 887 pg/mL (239-931) 06/29/17 05:30 Folate 5.3 ng/mL 06/29/17 05:30 Venous Blood Potassium 3.8 mmol/L (3.6-5.2) 06/27/17 17:43 Urine Color Yellow (YELLOW) 06/27/17 16:45 Urine Clarity Slighty-cloudy (Clear) 06/27/17 16:45 Urine pH 6.0 (5.0-8.0) 06/27/17 16:45 Ur Specific [place] 1.021 (1.003-1.030) 06/27/17 16:45 Urine Protein 30 mg/dL (NEGATIVE) 06/27/17 16:45 Urine Glucose (UA) Neg mg/dL (Normal) 06/27/17 16:45 Urine Ketones Trace mg/dL (NEGATIVE) 06/27/17 16:45 Urine Blood Negative (NEGATIVE) 06/27/17 16:45 Urine Nitrate Negative (NEGATIVE) 06/27/17 16:45 Urine Bilirubin Negative (NEGATIVE) 06/27/17 16:45 Urine Urobilinogen 0.2-1.0 mg/dL (0.2-1.0) 06/27/17 16:45 Ur Leukocyte Esterase Neg [place]/uL (Negative) 06/27/17 16:45 Urine RBC (Auto) 4 /hpf (0-3) H 06/27/17 16:45 Urine Microscopic WBC 4 /hpf (0-5) 06/27/17 16:45 Ur Squamous Epith Cells < 1 /hpf (0-5) 06/27/17 16:45 Calcium Oxalate Crystal Mod /hpf (<OCC) H 06/27/17 16:45 Granular Casts (Auto) 1 /lpf (0-1) 06/27/17 16:45 Vancomycin Trough 15.5 ug/mL (5.0-10.0) H 07/01/17 20:30 Random Vancomycin 13.1 ug/mL 07/02/17 10:48 C. difficile Ag & Toxin Positive antigen (NEGATIVE) 06/30/17 14:15 Blood Type O POSITIVE 07/02/17 06:00 Antibody Screen Negative 07/02/17 06:00 Crossmatch See Detail 07/02/17 06:00 BBK History Checked Patient has bt 07/02/17 06:00 - Hospital Course Hospital Course: 82 yo male with history of DVT, Arthritis and BPH sent back from shelter because of pain on left knee. He was discharged to [facility] a month ago after revision was done on the left TKR. Wound culture grew Staph aureus. He was put on IV Cefepime and Vanco which were continued when he was transferred to [facility]. About a week ago as per daughter, patient was lifted and probably injured and dislocated left knee. Patient has been in pain since then.Ortho was consulted and he underwent Closed Reduction of Dislocated knee and placement of Antibiotic spacer on 07/02.Long hard cast was placed to Left Lower extremity extending from mid thigh to the foot. ID was consulted and recommended switching patient to Zyvox pO for 2 more weeks ,finishing total 4 weeks of antibiotics. At present hemodynamically stable . Cleared by ortho for discharge and will be sent to [facility] to continue PT During this admission he noticed to have some diarrhea and stool reported positive for C.Diff Ag. He was strated on Flagyl IV and will continue for 1 more week on discharge for c.diff infection . Hemodynamically stable, afebrile, frail and pale with minimal confusion on and off 1. 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 Will continue 2 more weeks of Zyvox Po ( received 2 weeks of Rocephin and Vanco IV ) Plan for discharge to [facility] today Cleared by ortho for discharge 2.History of DVT restarted eliquis today ( as per hematology to finish total 3 months . Initially started in march) Hematology on board 3. BPH on Flomax 4. Altered Mental Status secondary to Delirium episodes of confusion neuro consulted CT scan of the head: neg avoid benzodiazepines and narcotics 5. C Diff Infection C diff antigen positive on Flagyl 500mg PO TID Discussed with ID. Will continue 7 more days 6. Coagulopathy INR and PTT sl elevated , probably related to Eliquis use received Vit K Hematology following pt 7. Anemia stable Give Venofer IV start PO iron sulfate Discharge Exam - Head Exam Head Exam: ATRAUMATIC, NORMOCEPHALIC - Eye Exam Eye Exam: EOMI, Normal appearance, PERRL Pupil Exam: NORMAL ACCOMODATION - ENT Exam ENT Exam: Mucous Membranes Moist, Normal Exam - Neck Exam Neck exam: Full Rom, Normal Inspection - Respiratory Exam Respiratory Exam: Clear to PA & Lateral, NORMAL BREATHING PATTERN. absent: Rales, Rhonchi, Wheezes - Cardiovascular Exam Cardiovascular Exam: REGULAR RHYTHM, RRR, +S1, +S2. absent: JVD - GI/Abdominal Exam GI & Abdominal Exam: Normal Bowel Sounds, Soft. absent: Distended, Guarding, Rebound, Tenderness - Rectal Exam Rectal Exam: Deferred - Extremities Exam Extremities exam: normal capillary refill, normal inspection, pedal pulses present Additional comments: LLE long cast in place toes warm to touch, able to move - Back Exam Back exam: NORMAL INSPECTION - Neurological Exam Neurological exam: Alert, CN II-XII Intact, Oriented x3, Reflexes Normal - Psychiatric Exam Psychiatric exam: Normal Affect - Skin Skin Exam: Dry, Pallor, Warm Discharge Plan - Follow Up Plan Condition: FAIR Disposition: TRANSF TO SNF Patient education suggested?: Yes Instructions: Clostridium difficile, Dislocated Kneecap, Total Knee Replacement (DC) Referrals: Stevan Ann III, MD [Staff Provider] -
--- NOTE | 2017-07-04 18:57 | PN ---
DATE: SUBJECTIVE: The patient denies chest pain. He is oriented to place. PHYSICAL EXAMINATION: VITAL SIGNS: Blood pressure 110/67, heart rate 79, temperature 98.4, and respirations 20. HEENT: Pale conjunctivae. CHEST: Clear. HEART: S1 and S2 regular. EXTREMITIES: No edema. LABORATORY DATA: Today's include hemoglobin and hematocrit is 10 and 30.3, white count and platelet count are within normal limits. ASSESSMENT: 1. Status post closed reduction, manipulation, and application of long-leg cast with femoral nerve block yesterday. 2. Bilateral basal ganglia infarcts. 3. Fusiform dilatation of the ascending aorta. 4. Clostridium difficile colitis. RECOMMENDATIONS: Continue current IV Dilaudid 2 mg q.4 hours p.r.n., continue Eliquis 5 mg daily, and Zyvox 600 mg p.o. twice a day. Plan is to transfer the patient to subacute rehab today. Liban Oliveira MD
== END 2017-07-04 15:15 | DRG 559 ==
LOC: H.ER 15:03 → H.ERHOLD 17:32 → H.MEDSURG1 20:16
PROC: 3E0T3BZ Introduction of Anesthetic Agent into Peripheral Nerves and Plexi, Percutaneous Approach (ICD-10-PCS; principal; 2017-07-02 07:45)
PROC: 3E0T3BZ Introduction of Anesthetic Agent into Peripheral Nerves and Plexi, Percutaneous Approach (ICD-10-PCS; 2017-07-02 07:45)
PROC: 0SW Lower Joints, Revision (ICD-10-PCS; 2017-07-02 07:45)
DX: T84.023A Instability of internal left knee prosthesis, initial encounter (principal); G92 Toxic encephalopathy; A04.72 Enterocolitis due to Clostridium difficile, not specified as recurrent; L89.102 Pressure ulcer of unspecified part of back, stage 2; E86.0 Dehydration; D63.8 Anemia in other chronic diseases classified elsewhere; D50.0 Iron deficiency anemia secondary to blood loss (chronic); F03.90 Unspecified dementia, unspecified severity, without behavioral disturbance, psychotic disturbance, mood disturbance, and anxiety; Y79.2 Prosthetic and other implants, materials and accessory orthopedic devices associated with adverse incidents; N40.0 Benign prostatic hyperplasia without lower urinary tract symptoms; I10 Essential (primary) hypertension; M25.462 Effusion, left knee; Z85.46 Personal history of malignant neoplasm of prostate; Z79.01 Long term (current) use of anticoagulants; R79.1 Abnormal coagulation profile; R94.31 Abnormal electrocardiogram [ECG] [EKG]; Z88.6 Allergy status to analgesic agent; Z88.5 Allergy status to narcotic agent; Z91.19 Patient's noncompliance with other medical treatment and regimen; Z86.718 Personal history of other venous thrombosis and embolism; R41.0 Disorientation, unspecified; R91.8 Other nonspecific abnormal finding of lung field; I77.810 Thoracic aortic ectasia; R54 Age-related physical debility